=== PATIENT | female | born 1990 | race Caucasian/White ===

== ENCOUNTER 2017-01-05 08:56 | Emergency (ER) | payer BC ==
[2017-01-05] MEDS ORDERED: Morphine 4 MG/ML Syringe IVPUSH PRN (09:26)
[2017-01-05] MEDS ORDERED: Sodium Chloride 0.9% 1,000 ML IV ONE (09:26)
[2017-01-05] MEDS ORDERED: Ketorolac 30 MG/ML SDV IVPUSH ONE (09:26)
[2017-01-05] MEDS ORDERED: Ondansetron 4 MG/2 ML SDV IVPUSH ONE (09:26)
--- NOTE | 2017-01-05 09:30 | EDM.PDOC ---
ED HPI GENERAL MEDICAL PROBLEM - General Chief Complaint: Abdominal Pain Stated Complaint: LOWER ABDOMINAL PAIN Time Seen by Provider: 01/05/17 09:04 Source of Information: Reports: Patient History Limitations: Reports: No Limitations - History of Present Illness INITIAL COMMENTS - FREE TEXT/NARRATIVE: The patient is a 26-year-old female with a chief complaint of pelvic pain. The patient states that she has a history of severe endometriosis and also ovarian cysts that have required surgery for rupture. She always has some lower abdominal pain, but it's been worse lately. Gradually worsening. Pain is located in the lower abdomen all across the lower abdomen. Pain is sharp, cramping, constant, worse with movement, better with rest. She's taken ibuprofen for the pain with no relief. States that she used to be on stronger pain medications but hasn't been on stronger meds since moving here from [place]. She is not established with a PCP.. Denies vaginal discharge or bleeding. She is nausea, no vomiting. No diarrhea or constipation. No dysuria or hematuria. She is currently not on hormonal control. , one partner, using condoms for protection. No history of pelvic infection previously. Lower Abdominal Pain Score (Numeric/FACES): 8 - Related Data Allergies Allergy/AdvReac Type Severity Reaction Status Date / Time amitriptyline [From Elavil] Allergy Rash Verified 01/05/17 09:08 levofloxacin [From Levaquin] Allergy Hives Verified 01/05/17 09:08 metaxalone [From Skelaxin] Allergy Cannot Verified 01/05/17 09:08 Remember metoclopramide [From Reglan] Allergy Paralysis Verified 01/05/17 09:08 Home Meds: Home Meds Cranberry Ext/C/L. 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 - Past Surgical History HEENT Surgical History: Reports: Tonsillectomy Female Surgical History: Reports: Other (See Below) Other Female Surgeries/Procedures: endometriosis, cysts removed and drained Social & Family History - Tobacco Use Smoking Status *Q: Never Smoker - Caffeine Use Caffeine Use: Reports: Coffee - Recreational Drug Use Recreational Drug Use: No ED ROS GENERAL - Review of Systems Review Of Systems: See Below Constitutional: Denies: Fever HEENT: Reports: No Symptoms Respiratory: Denies: Shortness of Breath Cardiovascular: Denies: Chest Pain Endocrine: Reports: No Symptoms GI/Abdominal: Reports: Abdominal Pain : Denies: Dysuria Musculoskeletal: Reports: No Symptoms Skin: Reports: No Symptoms Neurological: Reports: No Symptoms Psychiatric: Reports: No Symptoms ED EXAM, GI/ABD - Physical Exam Exam: See Below Exam Limited By: No Limitations General Appearance: Alert, WD/WN, No Apparent Distress Eyes: Bilateral: Normal Appearance Ears: Normal External Exam Nose: Normal Inspection Throat/Mouth: Normal Inspection, Normal Oropharynx, No Airway Compromise Head: Atraumatic, Normocephalic Neck: Normal Inspection Respiratory/Chest: No Respiratory Distress Cardiovascular: Normal Peripheral Pulses, Regular Rate, Rhythm GI/Abdominal Exam: Soft, Other (Diffuse lower abdominal tenderness, no rebound or guarding) (Female) Exam: Normal External Exam, Normal Speculum Exam, Normal Bimanual Exam. No: Cervical Discharge, Vaginal Bleeding, Vaginal Discharge, Vaginal Lesions, Vaginal Tears Back Exam: No: CVA Tenderness (L), CVA Tenderness (R) Extremities: Normal Inspection Neurological: Alert, Normal Cognition, No Motor/Sensory Deficits Psychiatric: Normal Affect, Normal Mood Skin Exam: Warm, Dry, Intact, Normal Color, No Rash Course - Vital Signs Last Recorded V/S: Last Vital Signs Temp 36.3 C 01/05/17 09:03 Pulse 85 01/05/17 15:27 Resp 16 01/05/17 15:27 BP 104/82 01/05/17 15:27 Pulse Ox 98 01/05/17 15:27 - Orders/Labs/Meds Labs: Laboratory Tests 01/05/17 01/05/17 01/05/17 Range/Units 09:06 09:06 09:50 WBC 7.70 (3.98-10.04) K/mm3 RBC 4.65 (3.98-5.22) M/mm3 Hgb 13.8 (11.2-15.7) gm/L Hct 40.6 (34.1-44.9) % MCV 87.3 (79.4-94.8) fl MCH 29.7 (25.6-32.2) pg MCHC 34.0 (32.2-35.5) g/dl RDW Std Deviation 41.2 (36.4-46.3) fL Plt Count 210 (182-369) K/mm3 MPV 10.8 (9.4-12.3) fl Neut % (Auto) 51.1 (34.0-71.1) % Lymph % (Auto) 39.6 (19.3-51.7) % Stanley % (Auto) 6.5 (4.7-12.5) % Eos % (Auto) 2.3 (0.7-5.8) Baso % (Auto) 0.4 (0.1-1.2) % Neut # (Auto) 3.93 (1.56-6.13) K/mm3 Lymph # (Auto) 3.05 (1.18-3.74) K/mm3 Stanley # (Auto) 0.50 H (0.24-0.36) K/mm3 Eos # (Auto) 0.18 (0.04-0.36) K/mm3 Baso # (Auto) 0.03 (0.01-0.08) K/mm3 Sodium 141 (136-145) mEq/L Potassium 4.1 (3.5-5.1) mEq/L Chloride 107 (98-107) mEq/L Carbon Dioxide 26 (21-32) mEq/L Anion Gap 12.1 (5-15) BUN 21 H (7-18) mg/dL Creatinine 0.7 (0.55-1.02) mg/dL Est Cr Clr Drug Dosing 101.63 mL/min Estimated GFR (MDRD) > 60 (>60) mL/min BUN/Creatinine Ratio 30.0 H (14-18) Glucose 89 (74-106) mg/dL Calcium 8.8 (8.5-10.1) mg/dL Total Bilirubin 0.3 (0.2-1.0) mg/dL AST 10 L (15-37) U/L ALT 13 L (14-59) U/L Alkaline Phosphatase 96 (46-116) U/L Total Protein 7.3 (6.4-8.2) g/dl Albumin 3.9 (3.4-5.0) g/dl Globulin 3.4 gm/dL Albumin/Globulin Ratio 1.2 (1-2) Lipase 161 (73-393) U/L Urine Color (Yellow) Urine Appearance (Clear) Urine pH (5.0-8.0) Ur Specific Umbarger (1.005-1.030) Urine Protein (Negative) Urine Glucose (UA) (Negative) Urine Ketones (Negative) Urine Occult Blood (Negative) Urine Nitrite (Negative) Urine Bilirubin (Negative) Urine Urobilinogen (0.2-1.0) Ur Leukocyte Esterase (Negative) Urine RBC (0-5) /hpf Urine WBC (0-5) /hpf Ur Epithelial Cells (0-5) /hpf Urine Bacteria (FEW) /hpf Urine Mucus (FEW) /hpf Urine HCG, Qual (NEGATIVE) C trachomatis DNA (PCR) Not detected N gonorrhoeae DNA (PCR) Not detected 01/05/17 01/05/17 Range/Units 10:00 10:00 WBC (3.98-10.04) K/mm3 RBC (3.98-5.22) M/mm3 Hgb (11.2-15.7) gm/L Hct (34.1-44.9) % MCV (79.4-94.8) fl MCH (25.6-32.2) pg MCHC (32.2-35.5) g/dl RDW Std Deviation (36.4-46.3) fL Plt Count (182-369) K/mm3 MPV (9.4-12.3) fl Neut % (Auto) (34.0-71.1) % Lymph % (Auto) (19.3-51.7) % Stanley % (Auto) (4.7-12.5) % Eos % (Auto) (0.7-5.8) Baso % (Auto) (0.1-1.2) % Neut # (Auto) (1.56-6.13) K/mm3 Lymph # (Auto) (1.18-3.74) K/mm3 Stanley # (Auto) (0.24-0.36) K/mm3 Eos # (Auto) (0.04-0.36) K/mm3 Baso # (Auto) (0.01-0.08) K/mm3 Sodium (136-145) mEq/L Potassium (3.5-5.1) mEq/L Chloride (98-107) mEq/L Carbon Dioxide (21-32) mEq/L Anion Gap (5-15) BUN (7-18) mg/dL Creatinine (0.55-1.02) mg/dL Est Cr Clr Drug Dosing mL/min Estimated GFR (MDRD) (>60) mL/min BUN/Creatinine Ratio (14-18) Glucose (74-106) mg/dL Calcium (8.5-10.1) mg/dL Total Bilirubin (0.2-1.0) mg/dL AST (15-37) U/L ALT (14-59) U/L Alkaline Phosphatase (46-116) U/L Total Protein (6.4-8.2) g/dl Albumin (3.4-5.0) g/dl Globulin gm/dL Albumin/Globulin Ratio (1-2) Lipase (73-393) U/L Urine Color Light yellow (Yellow) Urine Appearance Clear (Clear) Urine pH 6.5 (5.0-8.0) Ur Specific Umbarger 1.015 (1.005-1.030) Urine Protein Negative (Negative) Urine Glucose (UA) Negative (Negative) Urine Ketones Negative (Negative) Urine Occult Blood Negative (Negative) Urine Nitrite Negative (Negative) Urine Bilirubin Negative (Negative) Urine Urobilinogen 0.2 (0.2-1.0) Ur Leukocyte Esterase Negative (Negative) Urine RBC Not seen (0-5) /hpf Urine WBC 0-5 (0-5) /hpf Ur Epithelial Cells 0-5 (0-5) /hpf Urine Bacteria Few (FEW) /hpf Urine Mucus Few (FEW) /hpf Urine HCG, Qual Negative (NEGATIVE) C trachomatis DNA (PCR) N gonorrhoeae DNA (PCR) Meds: Medications Discontinued Medications Generic Name Dose Route Start Last Admin Trade Name Freq PRN Reason Stop Dose Admin Sodium Chloride 1,000 mls @ 1,000 mls/hr 01/05/17 09:26 01/05/17 09:32 Normal Saline IV 01/05/17 10:25 1,000 mls/hr ONETIME ONE Administration Ketorolac Tromethamine 30 mg 01/05/17 09:26 01/05/17 09:35 Toradol IVPUSH 01/05/17 09:27 30 mg ONETIME ONE Administration Morphine Sulfate 4 mg 01/05/17 09:26 Morphine IVPUSH Q2H PRN Pain Morphine Sulfate 4 mg 01/05/17 09:37 01/05/17 09:38 Morphine IVPUSH 01/05/17 09:38 4 mg ONETIME STA Administration Morphine Sulfate 2 mg 01/05/17 11:13 01/05/17 11:17 Morphine IVPUSH 01/05/17 11:14 2 mg ONETIME ONE Administration Morphine Sulfate 4 mg 01/05/17 13:18 01/05/17 13:22 Morphine IVPUSH 01/05/17 13:19 4 mg ONETIME STA Administration Ondansetron HCl 4 mg 01/05/17 09:26 01/05/17 09:33 Zofran IVPUSH 01/05/17 09:27 4 mg ONETIME ONE Administration Ondansetron HCl 4 mg 01/05/17 15:16 01/05/17 15:19 Zofran IVPUSH 01/05/17 15:17 4 mg ONETIME STA Administration Oxycodone HCl 5 mg 01/05/17 10:00 01/05/17 10:13 Oxycodone PO 01/05/17 10:01 5 mg ONETIME ONE Administration Oxycodone HCl 5 mg 01/05/17 15:10 01/05/17 15:20 Oxycodone PO 01/05/17 15:11 5 mg ONETIME STA Administration - Re-Assessments/Exams Free Text/Narrative Re-Assessment/Exam: 01/05/17 16:48 U/S shows L ovarian mass and some fluid in the pelvis. Departure - Departure Time of Disposition: 14:45 Disposition: Home, Self-Care 01 Clinical Impression: Pelvic pain - Discharge Information Instructions: Pelvic Pain, Female, [id number] Referrals: PCP,None [Primary Care Provider] - Forms: ED Department Discharge Additional Instructions: 1. Follow up with Dr. Welsh as planned 2. Return to the ED if you have worsening pain or any other concerning symptoms
[2017-01-05] MEDS ORDERED: Morphine 4 MG/ML Syringe IVPUSH STA ×2 (09:37→13:18)
[2017-01-05] MEDS ORDERED: oxyCODONE 5 MG Tab PO ONE (10:00)
[2017-01-05] MEDS ORDERED: Morphine 2 MG/ML Syringe IVPUSH ONE (11:13)
[2017-01-05 11:47] LABS: C. TRACHOMATIS BY PCR NOT DETECTED; N. GONORRHOEAE BY PCR NOT DETECTED
--- NOTE | 2017-01-05 11:55 | US ---
Pelvic ultrasound: Multiple real-time images were obtained transvaginally. Comparison: No previous study. Anteverted uterus is seen. Endometrial thickness is 1.3 cm. There is moderate free fluid being seen within the pelvis which appears somewhat echogenic and could possibly represent some blood. Right ovary appears within normal limits. Solid appearing mass is identified within the left adnexa measuring 4.8 cm. This solid mass appears separate from the left ovary. Left ovary shows a 2.0 cm simple cyst. Measurements: Uterus: Length 7.1 cm, AP height 4.2 cm, transverse width 4.6 cm Right ovary: 2.3 x 1.5 x 1.1 cm Left ovary: 5.1 x 4.2 x 5.0 cm Impression: 1. Fluid within the pelvis appearing slightly echogenic possibly due to blood. 2. Solid appearing abnormality within the left adnexa. This measures about 4.8 cm in greatest size. This finding appears separate from the left ovary with left ovary showing a cyst measuring about 2.0 cm. This solid abnormality is nonspecific regarding etiology. Please exclude a positive test for this to represent an ectopic . 3. No additional abnormality is seen. Diagnostic code #3
--- NOTE | 2017-01-05 14:53 | PCM.CONS ---
H&P History of Present Illness - General Date of Service: 01/05/17 Admit Problem/Dx: 1. Pelvic pain 2. Left adnexal Mass. 3. History of endometriosis Source of Information: Patient History Limitations: Reports: No Limitations - History of Present Illness Initial Comments - Free Text/Narative: Karla is a 26-year-old nulligravida white female was seen in the emergency department today for complaints of bilateral lower pelvic pain. She has a chronic history of pelvic pain which she relates to endometriosis. She has been diagnosed as having stage IV endometriosis with significant involvement of the pelvis but with extension to the bowel. She's had 3 laparoscopies for evaluation and treatment of this. She at this time has had a low-grade pelvic pain consistently but for the last 2 weeks or so the pain is increased. Today she reports she had a moderate increase in the discomfort. This is what brought her into the emergency room. She's been treated recently with Femara 2.5 mg and norethindrone 0.35 mg daily to suppress the endometriosis. She however has recently moved here to [place] from [place] and did not have refills on this therefore has not taken it over the last 1-2 months. She feels this may be related to an this exacerbation. An ultrasound performed today in the ED shows the following per radiologist's report: anteverted uterus which is normal in size measuring 7.1 x 4.2 x 4.6 cm. The endometrial thickness is 1.3 cm. There is moderate free fluid seen within the pelvis which appears somewhat echogenic and possibly could represent blood. Right ovary appears to be within normal limits. Solid-appearing mass is noted within the left adnexa measuring 4.8 cm. Solid mass appears separate from the left ovary. Left ovary shows a 2.0 cm simple cyst. Measurements: Uterus: Length 7.17 minutes, AP height 4.2 cm's, transverse width 4.6 cm Right ovary: 2.3 x 1.5 x 1.1 cm Left ovary: 5.1 x 4.2 x 5.0 cm My evaluation of the ultrasound images shows findings that are less clear than those described above. Cannot entirely delineate whether the mass is separate from the left ovary. Past medical history: 1. Endometriosisstage IV with involvement of the bowel 2. Fibromyalgiaon medications Past surgical history: 1. Laparoscopy with diagnosis and cautery ablation of endometriosis -July 2015patient treated with Depo-Lupron 6 months following this surgery 2. Laparoscopy with treatment of endometriosis -January 2016 3. Laparoscopy with cautery ablation of endometriosisApril 2016 4. appendectomy age 23 5. Laparoscopy for removal of ruptured right ovarian cyst 2009 6. Tonsillectomy age 11. Allergies: amitriptyline, levofloxacin, metaxalone, metoclopramide Medications: 1. Wellbutrin. 2. Valtrex 3. Ambien 4. Zofran Family history: mother is alive with history of fibromyalgia, seizures, ovarian cysts, thyroid dysfunction. Father is alive with hypertension on meds 2 brothers 1 sister alive and well. No other endometriosis noted in the family. Maternal grandmother secondary to depression and kidney problems Maternal grandfather alive but with heart disease. Paternal grandmother is alive and well. Paternal grandfather secondary to heart disease. Patient denies any bleeding abnormalities, blood clotting abnormalities, anesthesia problems or endometriosis in the family. Social history: Patient is . She is a stay at home . is Florin. He works in the [employer] area. She denies any significant loss of alcohol, drugs or tobacco. Physical exam: In general the patient is a well-developed, well-nourished pleasant female stated age in no acute distress. She is alert and oriented 3 and appears to be good historian. She has shared records with her concerning her past hospitalizations, specifically pictures from her laparoscopies. These show a stage IV endometriosis but without any significant endometriomas. Skin is warm and dry without lesions. HEENT, neck and back within normal limits. Lungs are clear with good breath sounds in all lung rollins. Cardiovascular exam shows regular rate and rhythm without murmurs. Breast exam deferred. Abdomen is flat, soft, minimally tender with deep palpation in bilateral lower quadrants. Bowel sounds are noted. Scars present from previous laparoscopies. Genital exam per bimanual shows normal external genitalia, BUS, pubic hair pattern there is normal support, secretions estrogenization vagina. The cervix is freely mobile. The uterus is small and freely mobile. There is tenderness with anterior displacement of the uterus but this is minimal. No masses or organomegaly are easily palpated. Extremities neurological exam are grossly within normal limits. Lower Abdominal Pain Score (Numeric/FACES): 8 - Related Data Allergies/Adverse Reactions: Allergies Allergy/AdvReac Type Severity Reaction Status Date / Time amitriptyline [From Elavil] Allergy Rash Verified 01/05/17 09:08 levofloxacin [From Levaquin] Allergy Hives Verified 01/05/17 09:08 metaxalone [From Skelaxin] Allergy Cannot Verified 01/05/17 09:08 Remember metoclopramide [From Reglan] Allergy Paralysis Verified 01/05/17 09:08 Home Medications: Home Meds Cranberry Ext/C/L. 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 - Past Surgical History HEENT Surgical History: Reports: Tonsillectomy Female Surgical History: Reports: Other (See Below) Other Female Surgeries/Procedures: endometriosis, cysts removed and drained Social & Family History - Tobacco Use Smoking Status *Q: Never Smoker - Caffeine Use Caffeine Use: Reports: Coffee - Recreational Drug Use Recreational Drug Use: No H&P Review of Systems - Review of Systems: Review Of Systems: See Below Exam - Exam Exam: See Below - Vital Signs Vital Signs: Last Vital Signs Temp 36.3 C 01/05/17 09:03 Pulse 98 01/05/17 09:03 Resp 16 01/05/17 09:03 BP 117/81 01/05/17 09:03 Pulse Ox 99 01/05/17 09:03 Weight: 61.235 kg - Patient Data Lab Results Last 24 hrs: Laboratory Results - last 24 hr 01/05/17 01/05/17 01/05/17 Range/Units 09:06 09:06 09:50 WBC 7.70 (3.98-10.04) K/mm3 RBC 4.65 (3.98-5.22) M/mm3 Hgb 13.8 (11.2-15.7) gm/L Hct 40.6 (34.1-44.9) % MCV 87.3 (79.4-94.8) fl MCH 29.7 (25.6-32.2) pg MCHC 34.0 (32.2-35.5) g/dl RDW Std Deviation 41.2 (36.4-46.3) fL Plt Count 210 (182-369) K/mm3 MPV 10.8 (9.4-12.3) fl Neut % (Auto) 51.1 (34.0-71.1) % Lymph % (Auto) 39.6 (19.3-51.7) % Stevens % (Auto) 6.5 (4.7-12.5) % Eos % (Auto) 2.3 (0.7-5.8) Baso % (Auto) 0.4 (0.1-1.2) % Neut # (Auto) 3.93 (1.56-6.13) K/mm3 Lymph # (Auto) 3.05 (1.18-3.74) K/mm3 Stevens # (Auto) 0.50 H (0.24-0.36) K/mm3 Eos # (Auto) 0.18 (0.04-0.36) K/mm3 Baso # (Auto) 0.03 (0.01-0.08) K/mm3 Sodium 141 (136-145) mEq/L Potassium 4.1 (3.5-5.1) mEq/L Chloride 107 (98-107) mEq/L Carbon Dioxide 26 (21-32) mEq/L Anion Gap 12.1 (5-15) BUN 21 H (7-18) mg/dL Creatinine 0.7 (0.55-1.02) mg/dL Est Cr Clr Drug Dosing 101.63 mL/min Estimated GFR (MDRD) > 60 (>60) mL/min BUN/Creatinine Ratio 30.0 H (14-18) Glucose 89 (74-106) mg/dL Calcium 8.8 (8.5-10.1) mg/dL Total Bilirubin 0.3 (0.2-1.0) mg/dL AST 10 L (15-37) U/L ALT 13 L (14-59) U/L Alkaline Phosphatase 96 (46-116) U/L Total Protein 7.3 (6.4-8.2) g/dl Albumin 3.9 (3.4-5.0) g/dl Globulin 3.4 gm/dL Albumin/Globulin Ratio 1.2 (1-2) Lipase 161 (73-393) U/L Urine Color (Yellow) Urine Appearance (Clear) Urine pH (5.0-8.0) Ur Specific Ronks (1.005-1.030) Urine Protein (Negative) Urine Glucose (UA) (Negative) Urine Ketones (Negative) Urine Occult Blood (Negative) Urine Nitrite (Negative) Urine Bilirubin (Negative) Urine Urobilinogen (0.2-1.0) Ur Leukocyte Esterase (Negative) Urine RBC (0-5) /hpf Urine WBC (0-5) /hpf Ur Epithelial Cells (0-5) /hpf Urine Bacteria (FEW) /hpf Urine Mucus (FEW) /hpf Urine HCG, Qual (NEGATIVE) C trachomatis DNA (PCR) Not detected N gonorrhoeae DNA (PCR) Not detected 01/05/17 01/05/17 Range/Units 10:00 10:00 WBC (3.98-10.04) K/mm3 RBC (3.98-5.22) M/mm3 Hgb (11.2-15.7) gm/L Hct (34.1-44.9) % MCV (79.4-94.8) fl MCH (25.6-32.2) pg MCHC (32.2-35.5) g/dl RDW Std Deviation (36.4-46.3) fL Plt Count (182-369) K/mm3 MPV (9.4-12.3) fl Neut % (Auto) (34.0-71.1) % Lymph % (Auto) (19.3-51.7) % Stevens % (Auto) (4.7-12.5) % Eos % (Auto) (0.7-5.8) Baso % (Auto) (0.1-1.2) % Neut # (Auto) (1.56-6.13) K/mm3 Lymph # (Auto) (1.18-3.74) K/mm3 Stevens # (Auto) (0.24-0.36) K/mm3 Eos # (Auto) (0.04-0.36) K/mm3 Baso # (Auto) (0.01-0.08) K/mm3 Sodium (136-145) mEq/L Potassium (3.5-5.1) mEq/L Chloride (98-107) mEq/L Carbon Dioxide (21-32) mEq/L Anion Gap (5-15) BUN (7-18) mg/dL Creatinine (0.55-1.02) mg/dL Est Cr Clr Drug Dosing mL/min Estimated GFR (MDRD) (>60) mL/min BUN/Creatinine Ratio (14-18) Glucose (74-106) mg/dL Calcium (8.5-10.1) mg/dL Total Bilirubin (0.2-1.0) mg/dL AST (15-37) U/L ALT (14-59) U/L Alkaline Phosphatase (46-116) U/L Total Protein (6.4-8.2) g/dl Albumin (3.4-5.0) g/dl Globulin gm/dL Albumin/Globulin Ratio (1-2) Lipase (73-393) U/L Urine Color Light yellow (Yellow) Urine Appearance Clear (Clear) Urine pH 6.5 (5.0-8.0) Ur Specific Ronks 1.015 (1.005-1.030) Urine Protein Negative (Negative) Urine Glucose (UA) Negative (Negative) Urine Ketones Negative (Negative) Urine Occult Blood Negative (Negative) Urine Nitrite Negative (Negative) Urine Bilirubin Negative (Negative) Urine Urobilinogen 0.2 (0.2-1.0) Ur Leukocyte Esterase Negative (Negative) Urine RBC Not seen (0-5) /hpf Urine WBC 0-5 (0-5) /hpf Ur Epithelial Cells 0-5 (0-5) /hpf Urine Bacteria Few (FEW) /hpf Urine Mucus Few (FEW) /hpf Urine HCG, Qual Negative (NEGATIVE) C trachomatis DNA (PCR) N gonorrhoeae DNA (PCR) Result Diagrams: 01/05/17 09:06 01/05/17 09:06 Jaquan Results Last 24 hrs: Microbiology 01/05/17 09:50 Wet Prep - Final Vagina Consult PN Assessment/Plan Problem List Initiated/Reviewed/Updated: Yes Plan: Assessment: 1. Chronic pelvic pain with a moderate acute exacerbation over the last 24 hours. Differential diagnosis includes endometriosis but with possible ovarian cyst rupture resulting in acute pain and the fluid in the posterior cul-de-sac. 2. Patient status post laparoscopy 3 and is treated for endometriosis with aggressive medical therapy. 3. Patient desires procreation and has an appointment on 01/18/[address] [facility] for discussion of IVF. 4. Patient has had some relief from medical therapy consisting of Femara and norethindrone continuously and is amenable to possibly going back on this for relief 5. Patient has had good relief from Lortab's in the past. Plan: 1. We'll restart Femara at 2.5 mg by mouth daily along with norethindrone 0.35 mg in the form of Ortho Tri-Cyclen Lo Micronor control pills. 30 day supply of each, refill 2 2. Lortab 5 mg/325 one to 2 by mouth every 6 hours when necessary for pain. Quantity 30. No refills. 3. Patient has to use a nonsteroidal anti-inflammatory agent for baseline pain. 4. Return to clinic in 10-14 days for follow-up. 5. May consider doing a repeat ultrasound in 4-6 weeks to follow-up on ovarian cyst and left adnexal mass. 6. Patient to call if symptoms worsen. She is given our numbers.
[2017-01-05] MEDS ORDERED: oxyCODONE 5 MG Tab PO STA (15:10)
[2017-01-05] MEDS ORDERED: Ondansetron 4 MG/2 ML SDV IVPUSH STA (15:16)
[2017-01-05 15:29] VITALS: BP 104/82
== END 2017-01-05 15:20 | disposition home or self-care (01) ==
LOC: JD.ED 08:56
DX: R10.2 Pelvic and perineal pain (principal); Z88.8 Allergy status to other drugs, medicaments and biological substances; Z88.1 Allergy status to other antibiotic agents; Z79.899 Other long term (current) drug therapy; Z87.440 Personal history of urinary (tract) infections
CPT/HCPCS: 36415; 76830; 80053; 81001; 81025; 83690; 85025; 87210; 87491; 87591; 87808; 96361; 96374; 96375; 96376; 99285; A9270; J1885; J2270; J2405; J7040; 99283

== ENCOUNTER 2017-01-11 19:36 | Observation (INO) | payer BC ==
[2017-01-11] MEDS ORDERED: Sodium Chloride 0.9% 10 ML Syringe FLUSH PRN (20:31)
[2017-01-11] MEDS ORDERED: Sodium Chloride 0.9% 1,000 ML IV ONE (20:32)
[2017-01-11] MEDS ORDERED: Ondansetron 4 MG/2 ML SDV IVPUSH ONE ×2 (20:32→21:52)
--- NOTE | 2017-01-11 20:51 | EDM.PDOC ---
<Charlie Flowers - Last Filed: 01/12/17 02:30> ED HPI GENERAL MEDICAL PROBLEM - General Chief Complaint: Abdominal Pain Stated Complaint: LOWER ABDOMINAL PAIN/VOMITING/NAUSEA Time Seen by Provider: 01/11/17 20:27 - Related Data Allergies Allergy/AdvReac Type Severity Reaction Status Date / Time amitriptyline [From Elavil] Allergy Rash Verified 01/11/17 22:02 levofloxacin [From Levaquin] Allergy Hives Verified 01/11/17 22:02 metaxalone [From Skelaxin] Allergy Cannot Verified 01/11/17 22:02 Remember metoclopramide [From Reglan] AdvReac Paralysis Verified 01/12/17 07:08 Home Meds: Home Meds Cranberry Ext/C/L. Sporogenes [Azo Cranberry] 1 tab PO DAILY 01/05/17 [History] Ondansetron [Zofran ODT] 1 tab PO ASDIRECTED PRN 01/05/17 [History] buPROPion [Wellbutrin SR] 150 mg PO DAILY 01/05/17 [History] valACYclovir [Valtrex] 1,000 mg PO DAILY 01/05/17 [History] Letrozole [Femara] 2.5 mg PO DAILY 01/12/17 [History] Course - Vital Signs Last Recorded V/S: Last Vital Signs Temp 36.6 C 01/12/17 10:57 Pulse 110 H 01/12/17 10:57 Resp 12 01/12/17 10:57 BP 114/63 01/12/17 10:57 Pulse Ox 99 01/12/17 10:57 Orthostatic Blood Pressure [ 109/64 Standing] Orthostatic Blood Pressure [ 108/77 Sitting] Orthostatic Blood Pressure [ 104/76 Supine] - Orders/Labs/Meds Orders: Active Orders 24 hr Category Date Time Status Transvaginal Non OB [US] Stat Exams 01/11/17 21:53 Taken Medication Orders Docusate Sodium (Colace) 100 mg PO BID PRN PRN Reason: Constipation Hydromorphone HCl (Dilaudid) 0.5 mg IVPUSH Q2H PRN PRN Reason: Pain (severe 7-10) Lactated Ringer's (Ringers, Lactated) 1,000 mls @ 125 mls/hr IV ASDIRECTED NGUYEN Last Admin: 01/12/17 12:43 Dose: 125 mls/hr Infusion: 01/12/17 12:43 Dose: 125 mls/hr Admin: 01/12/17 05:02 Dose: 125 mls/hr Ibuprofen (Motrin) 600 mg PO Q6H PRN PRN Reason: Pain (moderate 4-6) Magnesium Hydroxide (Milk Of Magnesia) 30 ml PO Q12H PRN PRN Reason: Constipation Medroxyprogesterone Acetate (Provera) 10 mg PO DAILY [facility] Last Admin: 01/12/17 10:58 Dose: 10 mg Ondansetron HCl (Zofran) 4 mg IV Q4H PRN PRN Reason: Nausea/Vomiting Last Admin: 01/12/17 14:08 Dose: 4 mg Admin: 01/12/17 09:58 Dose: 4 mg Oxycodone/Acetaminophen (Percocet 325-5 Mg) 2 tab PO Q4H PRN PRN Reason: Pain (moderate 4-6) Last Admin: 01/12/17 14:07 Dose: 2 tab Admin: 01/12/17 09:55 Dose: 2 tab Bupropion 150 Mg Sr 0 each PO DAILY [facility] Last Admin: 01/12/17 10:27 Dose: Letrozole 2.5 Mg 0 each PO DAILY [facility] Last Admin: 01/12/17 10:27 Dose: Sodium Chloride (Saline Flush) 10 ml FLUSH ASDIRECTED PRN PRN Reason: Keep Vein Open Valacyclovir HCl (Valtrex) 1,000 mg PO DAILY [facility] Last Admin: 01/12/17 09:57 Dose: 1,000 mg Labs: Laboratory Tests 01/11/17 01/11/17 01/11/17 Range/Units 20:32 20:32 20:32 WBC 21.70 H (3.98-10.04) K/mm3 RBC 4.98 (3.98-5.22) M/mm3 Hgb 14.5 (11.2-15.7) gm/L Hct 42.9 (34.1-44.9) % MCV 86.1 (79.4-94.8) fl MCH 29.1 (25.6-32.2) pg MCHC 33.8 (32.2-35.5) g/dl RDW Std Deviation 41.2 (36.4-46.3) fL Plt Count 289 (182-369) K/mm3 MPV 10.8 (9.4-12.3) fl Neutrophils % (Manual) 82 H (40-60) % Band Neutrophils % 0 (0-10) % Lymphocytes % (Manual) 10 L (20-40) % Atypical Lymphs % 0 % Monocytes % (Manual) 6 (2-10) % Eosinophils % (Manual) 2 (0.7-5.8) % Basophils % (Manual) 0 L (0.1-1.2) Platelet Estimate Adequate Plt Morphology Comment Normal RBC Morph Comment Normal Sodium 140 (136-145) mEq/L Potassium 4.4 (3.5-5.1) mEq/L Chloride 106 (98-107) mEq/L Carbon Dioxide 22 (21-32) mEq/L Anion Gap 16.4 H (5-15) BUN 21 H (7-18) mg/dL Creatinine 0.6 (0.55-1.02) mg/dL Est Cr Clr Drug Dosing 102.95 mL/min Estimated GFR (MDRD) > 60 (>60) mL/min BUN/Creatinine Ratio 35.0 H (14-18) Glucose 112 H (74-106) mg/dL Calcium 9.3 (8.5-10.1) mg/dL Total Bilirubin 0.5 (0.2-1.0) mg/dL AST 19 (15-37) U/L ALT 31 (14-59) U/L Alkaline Phosphatase 93 (46-116) U/L C-Reactive Protein 0.4 (<1.0) mg/dL Total Protein 7.8 (6.4-8.2) g/dl Albumin 4.3 (3.4-5.0) g/dl Globulin 3.5 gm/dL Albumin/Globulin Ratio 1.2 (1-2) Lipase 115 (73-393) U/L HCG, Qual Negative (NEGATIVE) Urine Color (Yellow) Urine Appearance (Clear) Urine pH (5.0-8.0) Ur Specific [place] (1.005-1.030) Urine Protein (Negative) Urine Glucose (UA) (Negative) Urine Ketones (Negative) Urine Occult Blood (Negative) Urine Nitrite (Negative) Urine Bilirubin (Negative) Urine Urobilinogen (0.2-1.0) Ur Leukocyte Esterase (Negative) Urine RBC (0-5) /hpf Urine WBC (0-5) /hpf Ur Epithelial Cells (0-5) /hpf Urine Bacteria (FEW) /hpf Urine Mucus (FEW) /hpf 01/11/17 Range/Units 21:29 WBC (3.98-10.04) K/mm3 RBC (3.98-5.22) M/mm3 Hgb (11.2-15.7) gm/L Hct (34.1-44.9) % MCV (79.4-94.8) fl MCH (25.6-32.2) pg MCHC (32.2-35.5) g/dl RDW Std Deviation (36.4-46.3) fL Plt Count (182-369) K/mm3 MPV (9.4-12.3) fl Neutrophils % (Manual) (40-60) % Band Neutrophils % (0-10) % Lymphocytes % (Manual) (20-40) % Atypical Lymphs % % Monocytes % (Manual) (2-10) % Eosinophils % (Manual) (0.7-5.8) % Basophils % (Manual) (0.1-1.2) Platelet Estimate Plt Morphology Comment RBC Morph Comment Sodium (136-145) mEq/L Potassium (3.5-5.1) mEq/L Chloride (98-107) mEq/L Carbon Dioxide (21-32) mEq/L Anion Gap (5-15) BUN (7-18) mg/dL Creatinine (0.55-1.02) mg/dL Est Cr Clr Drug Dosing mL/min Estimated GFR (MDRD) (>60) mL/min BUN/Creatinine Ratio (14-18) Glucose (74-106) mg/dL Calcium (8.5-10.1) mg/dL Total Bilirubin (0.2-1.0) mg/dL AST (15-37) U/L ALT (14-59) U/L Alkaline Phosphatase (46-116) U/L C-Reactive Protein (<1.0) mg/dL Total Protein (6.4-8.2) g/dl Albumin (3.4-5.0) g/dl Globulin gm/dL Albumin/Globulin Ratio (1-2) Lipase (73-393) U/L HCG, Qual (NEGATIVE) Urine Color Yellow (Yellow) Urine Appearance Clear (Clear) Urine pH 6.0 (5.0-8.0) Ur Specific [place] > or = 1.030 (1.005-1.030) Urine Protein Trace H (Negative) Urine Glucose (UA) Negative (Negative) Urine Ketones 1+ H (Negative) Urine Occult Blood Negative (Negative) Urine Nitrite Negative (Negative) Urine Bilirubin Negative (Negative) Urine Urobilinogen 0.2 (0.2-1.0) Ur Leukocyte Esterase Negative (Negative) Urine RBC 0-5 (0-5) /hpf Urine WBC 0-5 (0-5) /hpf Ur Epithelial Cells 0-5 (0-5) /hpf Urine Bacteria Few (FEW) /hpf Urine Mucus Many H (FEW) /hpf Meds: Medications Generic Name Dose Route Start Last Admin Trade Name Freq PRN Reason Stop Dose Admin Docusate Sodium 100 mg 01/12/17 04:10 Colace PO BID PRN Constipation Hydromorphone HCl 0.5 mg 01/12/17 07:09 Dilaudid IVPUSH Q2H PRN Pain (severe 7-10) Lactated Ringer's 1,000 mls @ 125 mls/hr 01/12/17 04:10 01/12/17 12:43 Ringers, Lactated IV 125 mls/hr ASDIRECTED NGUYEN Administration Ibuprofen 600 mg 01/12/17 04:10 Motrin PO Q6H PRN Pain (moderate 4-6) Magnesium Hydroxide 30 ml 01/12/17 04:10 Milk Of Magnesia PO Q12H PRN Constipation Medroxyprogesterone Acetate 10 mg 01/12/17 10:45 01/12/17 10:58 Provera PO 10 mg DAILY NGUYEN Administration Ondansetron HCl 4 mg 01/12/17 04:10 01/12/17 14:08 Zofran IV 4 mg Q4H PRN Administration Nausea/Vomiting Oxycodone/Acetaminophen 2 tab 01/12/17 04:10 01/12/17 14:07 Percocet 325-5 Mg PO 2 tab Q4H PRN Administration Pain (moderate 4-6) Bupropion 150 Mg Sr 0 each 01/12/17 09:00 01/12/17 10:27 PO Not Given DAILY NGUYEN Letrozole 2.5 Mg 0 each 01/12/17 07:11 01/12/17 10:27 PO Not Given DAILY NGUYEN Sodium Chloride 10 ml 01/12/17 04:10 Saline Flush FLUSH ASDIRECTED PRN Keep Vein Open Valacyclovir HCl 1,000 mg 01/12/17 09:00 01/12/17 09:57 Valtrex PO 1,000 mg DAILY NGUYEN Administration Discontinued Medications Generic Name Dose Route Start Last Admin Trade Name Freq PRN Reason Stop Dose Admin Hydromorphone HCl 0.5 mg 01/11/17 21:35 01/11/17 22:01 Dilaudid IVPUSH 01/11/17 21:36 0.5 mg ONETIME ONE Administration Hydromorphone HCl 0.5 mg 01/12/17 04:10 Dilaudid IVPUSH Q2H PRN Pain (severe 7-10) Sodium Chloride 1,000 mls @ 999 mls/hr 01/11/17 20:32 01/11/17 20:51 Normal Saline IV 01/11/17 21:32 999 mls/hr ONETIME ONE Administration Sodium Chloride 1,000 mls @ 150 mls/hr 01/11/17 22:15 01/11/17 22:16 Normal Saline IV 150 mls/hr ASDIRECTED NGUYEN Administration Iopamidol 125 ml 01/12/17 00:54 01/12/17 01:23 Isovue-300 (61%) IVPUSH 01/12/17 00:55 125 ml ONETIME ONE Administration Metoclopramide HCl 10 mg 01/11/17 23:43 01/12/17 00:00 Reglan IVPUSH 01/11/17 23:44 Not Given ONETIME ONE Morphine Sulfate 4 mg 01/11/17 23:51 01/12/17 04:02 Morphine IVPUSH 4 mg Q2H PRN Administration Pain Non-Formulary Medication 2.5 mg 01/12/17 04:10 01/12/17 04:51 Letrozole PO Not Given DAILY NGUYEN Ondansetron HCl 4 mg 01/11/17 20:32 01/11/17 20:51 Zofran IVPUSH 01/11/17 20:33 4 mg ONETIME ONE Administration Ondansetron HCl 4 mg 01/11/17 21:52 01/11/17 22:01 Zofran IVPUSH 01/11/17 21:53 4 mg ONETIME ONE Administration Ondansetron HCl 4 mg 01/12/17 03:50 01/12/17 03:56 Zofran IVPUSH 4 mg Q4H PRN Administration Nausea/Vomiting Ondansetron HCl Confirm 01/12/17 03:51 01/12/17 04:10 Zofran Administered 01/12/17 03:52 Not Given Dose 4 mg .ROUTE .STK-MED ONE Promethazine HCl 25 mg 01/11/17 23:50 01/12/17 00:03 Phenergan PO 01/11/17 23:51 25 mg ONETIME ONE Administration Sodium Chloride 10 ml 01/11/17 20:31 01/11/17 20:51 Saline Flush FLUSH 10 ml ASDIRECTED PRN Administration Keep Vein Open - Re-Assessments/Exams Free Text/Narrative Re-Assessment/Exam: 01/12/17 01:40 Assumed care from Mary. Agree with documentation as above. U/S again shows an ovarian mass, possible endometrioma vs. dermoid. This was present on ultrasound last week. Given new symptoms of vomiting and elevated WBC and ongoing poorly controlled pain, will order CT a/p. 01/12/17 02:13 CT scan shows multiple complex cyst in the left pelvis largest measuring 5.2 4.4 cm consistent with endometriosis. Small amount of pelvic ascites. No abscess identified. 01/12/17 02:23 Patient is feeling much better but still has some pain and nausea. I offered admission for observation and symptom control versus discharge. She doesn't feel comfortable going home. She was severely uncomfortable when she arrived, tachycardic, dehydrated, and required multiple rounds of medications and fluids to get her symptoms to where they are now. I think admission for symptom control overnight is reasonable. 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 01/12/17 02:[address] Patel who will admit the patient. Departure - Departure Time of Disposition: 02:31 Disposition: Refer to Observation Clinical Impression: Endometriosis Vomiting Qualifiers: Vomiting type: unspecified Vomiting Intractability: non-intractable Nausea presence: with nausea Qualified Code(s): R11.2 - Nausea with vomiting, unspecified - Discharge Information - My Orders Last 24 Hours: My Active Orders 01/11/17 21:53 Transvaginal Non OB [US] Stat - Assessment/Plan Last 24 Hours: My Active Orders 01/11/17 21:53 Transvaginal Non OB [US] Stat <Mary Presaud - Last Filed: 01/12/17 15:01> ED HPI GENERAL MEDICAL PROBLEM - General Source of Information: Reports: Patient, Old Records (recent ER record) History Limitations: Reports: No Limitations - History of Present Illness INITIAL COMMENTS - FREE TEXT/NARRATIVE: 26-year-old female presents for evaluation and treatment of lower abdominal and pelvic pain. Patient was seen in the ER on January 05 for the same problem. She reports that the pain has not stopped since then. During her ER visit she was found to have an mass in the left adnexa. She also had free fluid in the pelvis likely blood. OB was consulted and saw the patient in the ER. She was restarted on from there and Ortho [facility]. She was given Lortabs. She is instructed to follow-up with him in clinic in the next 10-14 days. She's not yet followed up Dr. Welsh but is schedule to see him soon. Patient reports that tonight the pain has become much worse. Pain is located in the bilateral pelvis. She reports nausea, vomiting, lightheadedness and diaphoresis. She states that she is almost fainted on several occasions but has not yet had a syncopal episode. She also reports associated symptoms of decreased appetite. Patient also reported to nursing staff some dysuria. Last menstrual period was the first week of the month, about 2-1/2 weeks ago. Patient has a past medical history of endometriosis and ovarian cysts. patient has a past surgical history including appendectomy, multiple laparoscopies and tonsillectomy. Pelvic Pain Score (Numeric/FACES): 6 Past Medical History Genitourinary History: Reports: UTI, Recurrent Other Genitourinary History: previously admitted for ovarian cyst. MEDICAL PSYCHOTHERAPIST History: Reports: Endometriosis - Past Surgical History HEENT Surgical History: Reports: Tonsillectomy GI Surgical History: Reports: Appendectomy Other GI Surgeries/Procedures: entermetrosis surgeries. Female Surgical History: Reports: Other (See Below) Other Female Surgeries/Procedures: endometriosis, cysts removed and drained Social & Family History - Family History Family Medical History: Noncontributory - Tobacco Use Smoking Status *Q: Never Smoker - Caffeine Use Caffeine Use: Reports: Coffee, Tea - Alcohol Use Days Per Week of Alcohol Use: 1 Number of Drinks Per Day: 1 Total Drinks Per Week: 1 - Recreational Drug Use Recreational Drug Use: No ED ROS GENERAL - Review of Systems Review Of Systems: See Below Constitutional: Reports: Malaise, Diaphoresis, Decreased Appetite. Denies: Fever Cardiovascular: Reports: Lightheadedness GI/Abdominal: Reports: Nausea, Vomiting. Denies: Constipation, Diarrhea : Reports: Dysuria, Other (pelvic pain bilateral) Neurological: Denies: Syncope ED EXAM, RENAL/ - Physical Exam Exam: See Below Exam Limited By: No Limitations General Appearance: Alert, WD/WN, Mild Distress Throat/Mouth: Normal Inspection, Normal Voice, No Airway Compromise Neck: Normal Inspection Respiratory/Chest: No Respiratory Distress, Lungs Clear, Normal Breath Sounds Cardiovascular: Normal Peripheral Pulses, No Murmur, Tachycardia GI/Abdominal: Soft, Tender (mild generalized tenderness, greatest in the lower abdomen and suprapubic region) Neurological: Alert, Oriented, Normal Cognition Psychiatric: Normal Affect, Normal Mood Skin Exam: Warm, Dry, Normal Color Course - Orders/Labs/Meds Labs: Laboratory Tests 01/11/17 01/11/17 01/11/17 Range/Units 20:32 20:32 20:32 WBC 21.70 H (3.98-10.04) K/mm3 RBC 4.98 (3.98-5.22) M/mm3 Hgb 14.5 (11.2-15.7) gm/L Hct 42.9 (34.1-44.9) % MCV 86.1 (79.4-94.8) fl MCH 29.1 (25.6-32.2) pg MCHC 33.8 (32.2-35.5) g/dl RDW Std Deviation 41.2 (36.4-46.3) fL Plt Count 289 (182-369) K/mm3 MPV 10.8 (9.4-12.3) fl Neutrophils % (Manual) 82 H (40-60) % Band Neutrophils % 0 (0-10) % Lymphocytes % (Manual) 10 L (20-40) % Atypical Lymphs % 0 % Monocytes % (Manual) 6 (2-10) % Eosinophils % (Manual) 2 (0.7-5.8) % Basophils % (Manual) 0 L (0.1-1.2) Platelet Estimate Adequate Plt Morphology Comment Normal RBC Morph Comment Normal Sodium 140 (136-145) mEq/L Potassium 4.4 (3.5-5.1) mEq/L Chloride 106 (98-107) mEq/L Carbon Dioxide 22 (21-32) mEq/L Anion Gap 16.4 H (5-15) BUN 21 H (7-18) mg/dL Creatinine 0.6 (0.55-1.02) mg/dL Est Cr Clr Drug Dosing 102.95 mL/min Estimated GFR (MDRD) > 60 (>60) mL/min BUN/Creatinine Ratio 35.0 H (14-18) Glucose 112 H (74-106) mg/dL Calcium 9.3 (8.5-10.1) mg/dL Total Bilirubin 0.5 (0.2-1.0) mg/dL AST 19 (15-37) U/L ALT 31 (14-59) U/L Alkaline Phosphatase 93 (46-116) U/L C-Reactive Protein 0.4 (<1.0) mg/dL Total Protein 7.8 (6.4-8.2) g/dl Albumin 4.3 (3.4-5.0) g/dl Globulin 3.5 gm/dL Albumin/Globulin Ratio 1.2 (1-2) Lipase 115 (73-393) U/L HCG, Qual Negative (NEGATIVE) Urine Color (Yellow) Urine Appearance (Clear) Urine pH (5.0-8.0) Ur Specific [place] (1.005-1.030) Urine Protein (Negative) Urine Glucose (UA) (Negative) Urine Ketones (Negative) Urine Occult Blood (Negative) Urine Nitrite (Negative) Urine Bilirubin (Negative) Urine Urobilinogen (0.2-1.0) Ur Leukocyte Esterase (Negative) Urine RBC (0-5) /hpf Urine WBC (0-5) /hpf Ur Epithelial Cells (0-5) /hpf Urine Bacteria (FEW) /hpf Urine Mucus (FEW) /hpf 01/11/17 Range/Units 21:29 WBC (3.98-10.04) K/mm3 RBC (3.98-5.22) M/mm3 Hgb (11.2-15.7) gm/L Hct (34.1-44.9) % MCV (79.4-94.8) fl MCH (25.6-32.2) pg MCHC (32.2-35.5) g/dl RDW Std Deviation (36.4-46.3) fL Plt Count (182-369) K/mm3 MPV (9.4-12.3) fl Neutrophils % (Manual) (40-60) % Band Neutrophils % (0-10) % Lymphocytes % (Manual) (20-40) % Atypical Lymphs % % Monocytes % (Manual) (2-10) % Eosinophils % (Manual) (0.7-5.8) % Basophils % (Manual) (0.1-1.2) Platelet Estimate Plt Morphology Comment RBC Morph Comment Sodium (136-145) mEq/L Potassium (3.5-5.1) mEq/L Chloride (98-107) mEq/L Carbon Dioxide (21-32) mEq/L Anion Gap (5-15) BUN (7-18) mg/dL Creatinine (0.55-1.02) mg/dL Est Cr Clr Drug Dosing mL/min Estimated GFR (MDRD) (>60) mL/min BUN/Creatinine Ratio (14-18) Glucose (74-106) mg/dL Calcium (8.5-10.1) mg/dL Total Bilirubin (0.2-1.0) mg/dL AST (15-37) U/L ALT (14-59) U/L Alkaline Phosphatase (46-116) U/L C-Reactive Protein (<1.0) mg/dL Total Protein (6.4-8.2) g/dl Albumin (3.4-5.0) g/dl Globulin gm/dL Albumin/Globulin Ratio (1-2) Lipase (73-393) U/L HCG, Qual (NEGATIVE) Urine Color Yellow (Yellow) Urine Appearance Clear (Clear) Urine pH 6.0 (5.0-8.0) Ur Specific [place] > or = 1.030 (1.005-1.030) Urine Protein Trace H (Negative) Urine Glucose (UA) Negative (Negative) Urine Ketones 1+ H (Negative) Urine Occult Blood Negative (Negative) Urine Nitrite Negative (Negative) Urine Bilirubin Negative (Negative) Urine Urobilinogen 0.2 (0.2-1.0) Ur Leukocyte Esterase Negative (Negative) Urine RBC 0-5 (0-5) /hpf Urine WBC 0-5 (0-5) /hpf Ur Epithelial Cells 0-5 (0-5) /hpf Urine Bacteria Few (FEW) /hpf Urine Mucus Many H (FEW) /hpf - Re-Assessments/Exams Free Text/Narrative Re-Assessment/Exam: 01/11/17 22:00 labs return. Of concern her white blood cell count is still elevated at 21,000. Was 7.7 on . Case discussed with Dr. Mi Flowers. We will go ahead and get a repeat of a transvaginal ultrasound to rule out ovarian torsion. She very well may likely get a CT to further evaluate. I discussed this with the patient. She is now resting more comfortably. Nausea has improved. Will continue to monitor and give fluids. 01/12/17 15:00 Late entry At around 22:15 Last night (01/11/17) I updated Dr. Ksenia Flowers with the patient' s condition. She is familiar with the patient's case n that she saw her about a week ago. She will take over care.
[2017-01-11] MEDS ORDERED: HYDROmorphone 1 MG/ML Syringe IVPUSH ONE (21:35)
[2017-01-11] MEDS ORDERED: Sodium Chloride 0.9% 1,000 ML IV SCH (22:15)
[2017-01-11] MEDS ORDERED: Metoclopramide 10 MG/2 ML SDV IVPUSH ONE (23:43)
[2017-01-11] MEDS ORDERED: Promethazine 25 MG Tab PO ONE (23:50)
[2017-01-12] MEDS: Morphine 4 MG/ML Syringe IVPUSH PRN ×2 (00:03→04:02)
[2017-01-12] MEDS ORDERED: Iopamidol 612 MG/ML 150 ML Bottle IVPUSH ONE (00:54)
--- NOTE | 2017-01-12 03:47 | PCM.SN ---
- Free Text/Narrative Note: Admission H&P Chief complaint: abdominal pain with severe nausea and vomiting History of present illness: 26-year-old female who represents to the emergency department approximately one week since her last visit with significant abdominal pain. Patient has a known history of endometriosis but had stopped using her Femara and progesterone therapy about a month ago. On she was seen in the ED for similar complaints by Dr. Welsh with abdominal pain and was prescribed Femara and progesterone as well as narcotic pain medications. She reports that since that visit her pain has overall been controlled until yesterday, 01/11/17, when she started having increased amounts of abdominal pain. She reports that the pain would get up to a significant level that would lead to nausea with emesis and some lightheadedness as a result of the emesis. The pain has been overall constant with occasional episodes where the pain decreases to approximately a 5-6 out of 10. She had been using the Femara and progesterone daily as prescribed. She denies any fevers or chills. She denies any dysuria or urinary frequency/urgency. She reports that she does have pain with bowel movements and she was told that she had endometriosis lesions on her colon at her last surgery. She required multiple doses of narcotic pain medication in the emergency room and did not feel comfortable to go home to manage this there. 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 Reports that she has had endometriosis and was treated with Femara and progesterone therapy after first being diagnosed in July 2015 with a laparoscopic surgery. At her last surgery in July 2016 she was told that there were endometriosis lesions on her colon. Social history: Denies tobacco or drug use. Reports some occasional alcohol use. Family history: Denies family history of breast or ovarian cancer. Review of systems: As per history of present illness Physical exam: Temperature 37.0 Celsius, pulse 98, respiratory rate 16, blood pressure 124/69 Orthostatic Blood Pressure [ 109/64 Standing] Orthostatic Blood Pressure [ 108/77 Sitting] Orthostatic Blood Pressure [ 104/76 Supine] Gen.: Mild distress, alert and oriented Lungs: Clear to auscultation bilaterally Heart: Regular rate and rhythm Abdomen: soft, mild tenderness in bilateral lower quadrants, no guarding or rebound, nondistended Extremities: Moving all extremities without difficulty, no edema in lower extremities bilaterally CBC: WBC 21.7, hemoglobin 14.5, hematocrit 42.9, platelets 289 CMP: Sodium 140, potassium 4.4, CO2 22, BUS and 21, creatinine 0.6, AST 19, ALT 31, CRP 0.4, lipase 115 HCG: Negative Urinalysis: Unremarkable Transvaginal ultrasound (01/11/17) Findings Uterus: Unremarkable. Normal endometrial stripe thickness. No myometrial mass. Right ovary: Right ovary obscured by bowel gas. normal blood flow. Left ovary: Heterogeneous 2.8 x 4.2 x 5.1 cm left adnexal mass possibly with a solid component. Free fluid: Mild ascites Impression: Heterogeneous 2.8 x 4.2 x 5.1 cm left adnexal mass probably of the left ovary, possibly with a solid component CT abdomen and pelvis with contrast (01/12/17) Findings: Lower thorax: No acute findings Abdomen: Liver unremarkable, no mass. Gallbladder unremarkable, no stones, no ductal dilatation. Pancreas unremarkable, no mass, no ductal dilatation. Spleen unremarkable, no splenomegaly. Adrenals unremarkable, no mass. Kidneys and ureters unremarkable, no mass, no hydronephrosis. Stomach and bowel unremarkable, no obstruction, no mucosal thickening. Appendix no findings to suggest acute appendicitis. Pelvis: Bladder unremarkable, no mass. Reproductive with multiple complex cysts in the left side of the pelvis largest measures 5.2 x 4.4 cm consistent with patient's history of endometriosis. Fluid in the endometrial canal. Assessment/plan 26-year-old female with acute exacerbation of endometriosis pain with nausea, vomiting and near syncopal events 1. Refer to rubs for pain control and monitoring of nausea and vomiting 2. Ibuprofen, Percocet and Dilaudid IV as needed for pain 3. Zofran IV 4 mg every 4 hours as needed for nausea and vomiting 4. Continue on Femara for control of her endometriosis 5. Regular diet as tolerated 6. Activity as tolerated 7. Anticipate the patient will be stable for discharge by late afternoon on , will continue to monitor patient and follow her pain and nausea Lalit Patel M.D. 4:22 AM 01/12/2017
[2017-01-12] MEDS ORDERED: Ondansetron 4 MG/2 ML SDV IVPUSH PRN (03:50)
[2017-01-12] MEDS ORDERED: Ondansetron 4 MG/2 ML SDV ONE (03:51)
[2017-01-12] MEDS ORDERED: Docusate Sodium 100 MG Cap PO PRN (04:10)
[2017-01-12] MEDS ORDERED: Sodium Chloride 0.9% 10 ML Syringe FLUSH PRN (04:10)
[2017-01-12] MEDS ORDERED: Non-Formulary Medication 1 Each (Letrozole 2.5 MG) PO SCH (04:10)
[2017-01-12] MEDS ORDERED: HYDROmorphone 1 MG/ML Syringe IVPUSH PRN (04:10)
[2017-01-12] MEDS ORDERED: Magnesium Hydroxide 400 MG/5 ML Susp 30 ML Cup PO PRN (04:10)
[2017-01-12] MEDS ORDERED: Ibuprofen 600 MG Tab PO PRN (04:10)
[2017-01-12] MEDS: Lactated Ringers 1,000 ML IV SCH ×2 (05:02→12:43)
[2017-01-12] MEDS ORDERED: HYDROmorphone 0.5 MG/0.5 ML Syringe IVPUSH PRN (07:09)
--- NOTE | 2017-01-12 08:51 | CT ---
CT abdomen and pelvis Technique: Multiple axial sections were obtained from above the dome of the diaphragm inferiorly through the pubic symphysis. Intravenous contrast was utilized. No oral contrast has been utilized. Delayed images were obtained through the bladder. Findings: Visualized lung bases show nothing acute. Liver shows no focal parenchymal abnormality. Spleen appears within normal limits. Adrenal glands show no nodule. Kidneys show symmetric contrast enhancement without hydronephrosis or mass. Pancreas appears within normal limits. Gallbladder shows no calcified gallstones. Aorta shows no aneurysmal dilatation. No retroperitoneal adenopathy is seen. Mesenteric lymph nodes are seen believed to be incidental. Appendix is not definitely appreciated. Moderate amount of free fluid seen within the cul-de-sac. Cyst noted within the left adnexa measuring 4.3 cm as well as a collapsing cyst within the left adnexa measuring 2.5 cm. Free fluid is most likely secondary to the collapsing adnexal cyst. No inflammatory change is seen. No bowel dilatation is seen. Delayed images show contrast within the distal ureters and within the bladder. Bone window settings were reviewed which appear within normal limits for the patient's age. Impression: 1. Several cysts within the left adnexa one of which appears to be collapsing. Free fluid within the pelvis is seen which most likely represents fluid from a leaking cyst. 2. Other normal findings as noted above. Diagnostic code #3 I agree with preliminary report issued by [employer] ([facility] report finalized on 01/12/17, 2:54 AM Central Time)
[2017-01-12] MEDS ORDERED: BUPROPION 150 MG PO SCH (09:00)
[2017-01-12] MEDS ORDERED: valACYclovir 1,000 MG Tab PO SCH (09:00)
[2017-01-12] MEDS: Acetaminophen/oxyCODONE 325-5 MG Tab PO PRN ×3 (09:55→18:02)
[2017-01-12] MEDS: Ondansetron 4 MG/2 ML SDV IV PRN ×3 (09:58→18:09)
[2017-01-12 11:12] VITALS: BP 114/63
--- NOTE | 2017-01-12 18:27 | PCM.DCSUM1 ---
Discharge Summary - Hospital Course Free Text/Narrative:: 26-year-old female who represents to the emergency department approximately one week since her last visit with significant abdominal pain. Patient has a known history of endometriosis but had stopped using her Femara and progesterone therapy about a month ago. On 01/05/17 she was seen in the ED for similar complaints by Dr. Welsh with abdominal pain and was prescribed Femara and progesterone as well as narcotic pain medications. She reports that since that visit her pain has overall been controlled until yesterday, 01/11/17, when she started having increased amounts of abdominal pain. She reports that the pain would get up to a significant level that would lead to nausea with emesis and some lightheadedness as a result of the emesis. The pain has been overall constant with occasional episodes where the pain decreases to approximately a 5-6 out of 10. She had been using the Femara and progesterone daily as prescribed. She denies any fevers or chills. She denies any dysuria or urinary frequency/urgency. She reports that she does have pain with bowel movements and she was told that she had endometriosis lesions on her colon at her last surgery. She required multiple doses of narcotic pain medication in the emergency room and did not feel comfortable to go home to manage this there. HPI Initial Comments: 26-year-old female who represents to the emergency department approximately one week since her last visit with significant abdominal pain. Patient has a known history of endometriosis but had stopped using her Femara and progesterone therapy about a month ago. On 01/05/17 she was seen in the ED for similar complaints by Dr. Welsh with abdominal pain and was prescribed Femara and progesterone as well as narcotic pain medications. She reports that since that visit her pain has overall been controlled until yesterday, 01/11/17, when she started having increased amounts of abdominal pain. She reports that the pain would get up to a significant level that would lead to nausea with emesis and some lightheadedness as a result of the emesis. The pain has been overall constant with occasional episodes where the pain decreases to approximately a 5-6 out of 10. She had been using the Femara and progesterone daily as prescribed. She denies any fevers or chills. She denies any dysuria or urinary frequency/urgency. She reports that she does have pain with bowel movements and she was told that she had endometriosis lesions on her colon at her last surgery. She required multiple doses of narcotic pain medication in the emergency room and did not feel comfortable to go home to manage this there. Brief History: 26-year-old female who represents to the emergency department approximately one week since her last visit with significant abdominal pain. Patient has a known history of endometriosis but had stopped using her Femara and progesterone therapy about a month ago. On 01/05/17 she was seen in the ED for similar complaints by Dr. Welsh with abdominal pain and was prescribed Femara and progesterone as well as narcotic pain medications. She reports that since that visit her pain has overall been controlled until yesterday, 01/11/17, when she started having increased amounts of abdominal pain. She reports that the pain would get up to a significant level that would lead to nausea with emesis and some lightheadedness as a result of the emesis. The pain has been overall constant with occasional episodes where the pain decreases to approximately a 5-6 out of 10. She had been using the Femara and progesterone daily as prescribed. She denies any fevers or chills. She denies any dysuria or urinary frequency/urgency. She reports that she does have pain with bowel movements and she was told that she had endometriosis lesions on her colon at her last surgery. She required multiple doses of narcotic pain medication in the emergency room and did not feel comfortable to go home to manage this there. - Discharge Data Discharge Date: 01/12/17 Discharge Disposition: Home, Self-Care 01 Condition: Good - Discharge Diagnosis/Problem(s) (1) Endometriosis SNOMED Code(s): 256073339 ICD Code: N80.9 - ENDOMETRIOSIS, UNSPECIFIED Status: Acute (2) Vomiting SNOMED Code(s): 070064371 ICD Code: R11.10 - VOMITING, UNSPECIFIED Status: Acute Qualifiers: Vomiting type: unspecified Vomiting Intractability: non-intractable Nausea presence: with nausea Qualified Code(s): R11.2 - Nausea with vomiting, unspecified (3) Pelvic pain SNOMED Code(s): 59465128 ICD Code: R10.2 - PELVIC AND PERINEAL PAIN Status: Acute - Patient Summary/Data Operative Procedure(s) Performed: None Complications: None Consults: None Hospital Course: 26-year-old female who represents to the emergency department approximately one week since her last visit with significant abdominal pain. Patient has a known history of endometriosis but had stopped using her Femara and progesterone therapy about a month ago. On 01/05/17 she was seen in the ED for similar complaints by Dr. Welsh with abdominal pain and was prescribed Femara and progesterone as well as narcotic pain medications. She reports that since that visit her pain has overall been controlled until yesterday, 01/11/17, when she started having increased amounts of abdominal pain. She reports that the pain would get up to a significant level that would lead to nausea with emesis and some lightheadedness as a result of the emesis. The pain has been overall constant with occasional episodes where the pain decreases to approximately a 5-6 out of 10. She had been using the Femara and progesterone daily as prescribed. She denies any fevers or chills. She denies any dysuria or urinary frequency/urgency. She reports that she does have pain with bowel movements and she was told that she had endometriosis lesions on her colon at her last surgery. She required multiple doses of narcotic pain medication in the emergency room and did not feel comfortable to go home to manage this there. Patient was kept for observation and was given several doses of IV medication for pain. She was able to sleep throughout the night and was feeling somewhat improved in the morning. She was able to take oral pain medications and seemed to work better for her pain. She was able to tolerate a regular diet. Her nausea was improved. In early evening of hospital day #1 she felt like she was doing well enough to be able to be discharged home. She will follow up with me in the clinic in 1-2 weeks. - Patient Instructions Diet: Regular Diet as Tolerated Activity: As Tolerated Driving: Do Not Drive (while taking narcotic pain medications) Showering/Bathing: May Shower Notify Provider of: Fever, Increased Pain, Nausea and/or Vomiting - Discharge Plan Prescriptions/Med Rec: Acetaminophen/oxyCODONE [Percocet 325-5 MG] 1 - 2 tab PO Q6H PRN #20 tablet PRN Reason: Pain Norethindrone Acetate 5 mg PO DAILY #60 tablet Ondansetron [Zofran ODT] 1 tab PO ASDIRECTED PRN #30 tab.dis PRN Reason: Nausea Promethazine [Phenergan] 12.5 mg PO Q6H PRN #30 tab PRN Reason: nausea Home Medications: Home Meds Cranberry Ext/C/L. Sporogenes [Azo Cranberry] 1 tab PO DAILY 01/05/17 [History] buPROPion [Wellbutrin SR] 150 mg PO DAILY 01/05/17 [History] valACYclovir [Valtrex] 1,000 mg PO DAILY 01/05/17 [History] Acetaminophen/oxyCODONE [Percocet 325-5 MG] 1 - 2 tab PO Q6H PRN #20 tablet [Rx] Docusate Sodium [Colace] 100 mg PO BID PRN cap 01/12/17 [Rx] Ibuprofen [IJD: Ibuprofen] 600 mg PO Q6H PRN tablet 01/12/17 [Rx] Letrozole [Femara] 2.5 mg PO DAILY 01/12/17 [History] Norethindrone Acetate 5 mg PO DAILY #60 tablet 01/12/17 [Rx] Ondansetron [Zofran ODT] 1 tab PO ASDIRECTED PRN #30 tab.dis 01/12/17 [Rx] Promethazine [Phenergan] 12.5 mg PO Q6H PRN #30 tab 01/12/17 [Rx] Patient Handouts: Endometriosis, Nausea and Vomiting, Adult Forms: ED Department Discharge Referrals: Lalit Patel MD [Physician] - 01/18/17 9:00 am (co-pay $65.00 at time of appt. and arrive to appt. by 8:30 for registration) - Discharge Summary/Plan Comment DC Time >30 min.: No - Patient Data Vitals - Most Recent: Last Vital Signs Temp 36.6 C 01/12/17 10:57 Pulse 110 H 01/12/17 10:57 Resp 12 01/12/17 10:57 BP 114/63 01/12/17 10:57 Pulse Ox 99 01/12/17 10:57 Weight - Most Recent: 62.188 kg I&O - Last 24 hours: Intake & Output 01/12/17 01/12/17 01/12/17 06:59 14:59 22:59 Intake Total 4310 226 3863 Balance 8547 767 9795 Lab Results - Last 24 hrs: Laboratory Results - last 24 hr 01/12/17 Range/Units 10:48 WBC 8.51 (3.98-10.04) K/mm3 RBC 3.97 L (3.98-5.22) M/mm3 Hgb 11.6 (11.2-15.7) gm/L Hct 35.4 (34.1-44.9) % MCV 89.2 (79.4-94.8) fl MCH 29.2 (25.6-32.2) pg MCHC 32.8 (32.2-35.5) g/dl RDW Std Deviation 41.8 (36.4-46.3) fL Plt Count 200 (182-369) K/mm3 MPV 10.6 (9.4-12.3) fl Neut % (Auto) 58.1 (34.0-71.1) % Lymph % (Auto) 27.5 (19.3-51.7) % Hale % (Auto) 6.6 (4.7-12.5) % Eos % (Auto) 7.3 H (0.7-5.8) Baso % (Auto) 0.4 (0.1-1.2) % Neut # (Auto) 4.95 (1.56-6.13) K/mm3 Lymph # (Auto) 2.34 (1.18-3.74) K/mm3 Hale # (Auto) 0.56 H (0.24-0.36) K/mm3 Eos # (Auto) 0.62 H (0.04-0.36) K/mm3 Baso # (Auto) 0.03 (0.01-0.08) K/mm3 Med Orders - Current: Current Medications Docusate Sodium (Colace) 100 mg PO BID PRN PRN Reason: Constipation Hydromorphone HCl (Dilaudid) 0.5 mg IVPUSH Q2H PRN PRN Reason: Pain (severe 7-10) Lactated Ringer's (Ringers, Lactated) 1,000 mls @ 125 mls/hr IV ASDIRECTED [facility] Last Admin: 01/12/17 12:43 Dose: 125 mls/hr Ibuprofen (Motrin) 600 mg PO Q6H PRN PRN Reason: Pain (moderate 4-6) Magnesium Hydroxide (Milk Of Magnesia) 30 ml PO Q12H PRN PRN Reason: Constipation Medroxyprogesterone Acetate (Provera) 10 mg PO DAILY [facility] Last Admin: 01/12/17 10:58 Dose: 10 mg Ondansetron HCl (Zofran) 4 mg IV Q4H PRN PRN Reason: Nausea/Vomiting Last Admin: 01/12/17 18:09 Dose: 4 mg Oxycodone/Acetaminophen (Percocet 325-5 Mg) 2 tab PO Q4H PRN PRN Reason: Pain (moderate 4-6) Last Admin: 01/12/17 18:02 Dose: 2 tab Bupropion 150 Mg Sr 0 each PO DAILY [facility] Last Admin: 01/12/17 10:27 Dose: Not Given Letrozole 2.5 Mg 0 each PO DAILY [facility] Last Admin: 01/12/17 10:27 Dose: Not Given Sodium Chloride (Saline Flush) 10 ml FLUSH ASDIRECTED PRN PRN Reason: Keep Vein Open Valacyclovir HCl (Valtrex) 1,000 mg PO DAILY [facility] Last Admin: 01/12/17 09:57 Dose: 1,000 mg Discontinued Medications Hydromorphone HCl (Dilaudid) 0.5 mg IVPUSH ONETIME ONE Stop: 01/11/17 21:36 Last Admin: 01/11/17 22:01 Dose: 0.5 mg Hydromorphone HCl (Dilaudid) 0.5 mg IVPUSH Q2H PRN PRN Reason: Pain (severe 7-10) Sodium Chloride (Normal Saline) 1,000 mls @ 999 mls/hr IV ONETIME ONE Stop: 01/11/17 21:32 Last Admin: 01/11/17 20:51 Dose: 999 mls/hr Sodium Chloride (Normal Saline) 1,000 mls @ 150 mls/hr IV ASDIRECTED [facility] Last Admin: 01/11/17 22:16 Dose: 150 mls/hr Iopamidol (Isovue-300 (61%)) 125 ml IVPUSH ONETIME ONE Stop: 01/12/17 00:55 Last Admin: 01/12/17 01:23 Dose: 125 ml Metoclopramide HCl (Reglan) 10 mg IVPUSH ONETIME ONE Stop: 01/11/17 23:44 Last Admin: 01/12/17 00:00 Dose: Not Given Morphine Sulfate (Morphine) 4 mg IVPUSH Q2H PRN PRN Reason: Pain Last Admin: 01/12/17 04:02 Dose: 4 mg Non-Formulary Medication (Letrozole) 2.5 mg PO DAILY NGUYEN Last Admin: 01/12/17 04:51 Dose: Not Given Ondansetron HCl (Zofran) 4 mg IVPUSH ONETIME ONE Stop: 01/11/17 20:33 Last Admin: 01/11/17 20:51 Dose: 4 mg Ondansetron HCl (Zofran) 4 mg IVPUSH ONETIME ONE Stop: 01/11/17 21:53 Last Admin: 01/11/17 22:01 Dose: 4 mg Ondansetron HCl (Zofran) 4 mg IVPUSH Q4H PRN PRN Reason: Nausea/Vomiting Last Admin: 01/12/17 03:56 Dose: 4 mg Ondansetron HCl (Zofran) Confirm Administered Dose 4 mg .ROUTE .STK-MED ONE Stop: 01/12/17 03:52 Last Admin: 01/12/17 04:10 Dose: Not Given Promethazine HCl (Phenergan) 25 mg PO ONETIME ONE Stop: 01/11/17 23:51 Last Admin: 01/12/17 00:03 Dose: 25 mg Sodium Chloride (Saline Flush) 10 ml FLUSH ASDIRECTED PRN PRN Reason: Keep Vein Open Last Admin: 01/11/17 20:51 Dose: 10 ml *Q Meaningful Use (DIS) - VTE *Q VTE Criteria *Q: - Stroke *Q Stroke Criteria *Q: - AMI *Q AMI Criteria *Q:
--- NOTE | 2017-01-16 12:52 | US ---
Pelvic ultrasound: Multiple real-time images were obtained transvaginally. Comparison: Previous pelvic ultrasound study of 01/05/17. Findings: Uterus is anteverted. No myometrial abnormality is identified. Endometrial thickness is normal at 1.5 cm. Mild amount of free fluid is seen most likely physiologic. Right ovary difficult to see due to bowel gas and stool. Left ovary appears heterogeneous and difficult to exclude ovarian mass versus hemorrhagic collapsing cyst, second felt to be most likely given patient's age. Measurements: Uterus: Length 8.2 cm, AP height 4.1 cm, width 4.7 cm Left ovary: 5.8 x 4.5 x 4.8 cm Impression: 1. Heterogeneously and enlarged left ovary. Findings could represent an ovarian mass but given patient's age more likely etiology is a collapsing hemorrhagic cyst. Finding is fairly stable from previous ultrasound of 01/05/17. Follow-up study could be obtained in 3 months to hopefully confirm disappearance of finding. 2. Free fluid is seen believed to be physiologic. 3. Pelvic ultrasound is otherwise unremarkable. Diagnostic code #3 I agree with preliminary report issued by [facility] ([facility] report finalized on 01/12/17, 12:52 AM Central Time)
== END 2017-01-12 19:30 | disposition home or self-care (01) ==
LOC: JD.ED 19:36 → JD.MS 01-12 02:51
PROVIDERS: ADMIT Obstetrics & Gynecology; ATTEND Obstetrics & Gynecology
DX: N80.9 Endometriosis, unspecified (principal); R11.10 Vomiting, unspecified; R10.2 Pelvic and perineal pain; M79.7 Fibromyalgia; Z87.440 Personal history of urinary (tract) infections; Z79.899 Other long term (current) drug therapy; Z90.49 Acquired absence of other specified parts of digestive tract; Z90.89 Acquired absence of other organs; Z98.890 Other specified postprocedural states
CPT/HCPCS: 36415; 74177; 76830; 80053; 81001; 83690; 84703; 85025; 86140; 96361; 96374; 96375; 96376; 99285; A9270; G0378; J1170; J2270; J2405; J7040; J7050; J7120; Q0169; Q9967

== ENCOUNTER → 2017-01-27 | Day surgery (SDC) | payer BC ==
[~2017-01-27] MED LIST: Acetaminophen/oxyCODONE 325-5 MG Tab PO PRN; Bupivacaine 0.5% 30 ML SDV ONE; Dexamethasone 4 MG/ML SDV ONE; Docusate Sodium 100 MG Cap PO SCH; Famotidine 20 MG Tab PO SCH; HYDROmorphone 0.5 MG/0.5 ML Syringe IVPUSH PRN; HYDROmorphone 1 MG/ML Syringe ONE; Ketorolac 15 MG/ML SDV IVPUSH SCH; LETROZOLE 2.5 MG PO SCH; Lactated Ringers 1,000 ML IV SCH; Lactated Ringers 1,000 ML ONE; Lidocaine 1% 4 ML ONE; Lidocaine 1%/Sod Bicarbonate in NS 8.4% 1 ML Syringe IV PRN; Midazolam 1 MG/ML 2 ML SDV ONE; Morphine 10 MG/ML Syringe IM PRN; Ondansetron 4 MG Tab.DIS PO PRN; Ondansetron 4 MG/2 ML SDV IVPUSH PRN; Ondansetron 4 MG/2 ML SDV ONE; Propofol 200 MG/20 ML SDV ONE; Rocuronium 50 MG/5 ML Vial ONE; Scopolamine 1.5 MG Transdermal Patch TRDERM ONE; Sodium Chloride 0.9% 10 ML Syringe FLUSH PRN; [UNRECOGNIZED DRUG - OTHER] PO SCH; diphenhydrAMINE 50 MG/ML SDV IVPUSH PRN; fentaNYL 250 MCG/5 ML SDV ONE; hydrOXYzine HCl 25 MG/ML SDV IM PRN
[2017-01-27] MEDS: Lactated Ringers 1,000 ML IV SCH ×2 (10:00→18:33)
--- NOTE | 2017-01-27 10:04 | PCM.PREANE ---
Preanesthetic Assessment - Procedure Proposed Procedure: Laparoscopic ovarian cystectomy and fulguration of endometriosis - Anesthesia/Transfusion/Family Hx Anesthesia History: Prior Anesthesia Without Reaction Type of Anesthesia Reaction: Excessive Nausea/Vomiting Family History of Anesthesia Reaction: No Transfusion History: No Prior Transfusion(s) Intubation History: Unknown - Review of Systems General: No Symptoms Pulmonary: No Symptoms Cardiovascular: No Symptoms Gastrointestinal: No Symptoms Neurological: Other (fibromyalagia, L4-5 bulging disc) Other: Reports: Easy Bruising, Depression, Anxiety - Physical Assessment NPO Status Date: 01/26/17 NPO Status Time: 23:00 Pulse: 100 O2 Sat by Pulse Oximetry: 95 Respiratory Rate: 16 Blood Pressure: 115/75 Temperature: 36.5 C Height: 12.7 cm Weight: 62.188 kg ASA Class: 2 Mental Status: Alert & Oriented x3 Airway Class: Mallampati = 1 Dentition: Reports: Normal Dentition Thyro-Mental Finger Breadths: 3 Mouth Opening Finger Breadths: 3 ROM/Head Extension: Full Lungs: Clear to Auscultation, Normal Respiratory Effort Cardiovascular: Regular Rate, Regular Rhythm - Lab Values: Laboratory Last Values WBC 9.05 K/mm3 (3.98-10.04) 01/26/17 14:22 RBC 4.57 M/mm3 (3.98-5.22) 01/26/17 14:22 Hgb 13.4 gm/L (11.2-15.7) 01/26/17 14:22 Hct 40.1 % (34.1-44.9) 01/26/17 14:22 MCV 87.7 fl (79.4-94.8) 01/26/17 14:22 MCH 29.3 pg (25.6-32.2) 01/26/17 14:22 MCHC 33.4 g/dl (32.2-35.5) 01/26/17 14:22 RDW Std Deviation 40.9 fL (36.4-46.3) 01/26/17 14:22 Plt Count 272 K/mm3 (182-369) 01/26/17 14:22 MPV 10.4 fl (9.4-12.3) 01/26/17 14:22 Neut % (Auto) 62.2 % (34.0-71.1) 01/26/17 14:22 Lymph % (Auto) 29.2 % (19.3-51.7) 01/26/17 14:22 Teller % (Auto) 5.5 % (4.7-12.5) 01/26/17 14:22 Eos % (Auto) 2.5 (0.7-5.8) 01/26/17 14:22 Baso % (Auto) 0.4 % (0.1-1.2) 01/26/17 14:22 Neut # (Auto) 5.62 K/mm3 (1.56-6.13) 01/26/17 14:22 Lymph # (Auto) 2.64 K/mm3 (1.18-3.74) 01/26/17 14:22 Teller # (Auto) 0.50 K/mm3 (0.24-0.36) H 01/26/17 14:22 Eos # (Auto) 0.23 K/mm3 (0.04-0.36) 01/26/17 14:22 Baso # (Auto) 0.04 K/mm3 (0.01-0.08) 01/26/17 14:22 Sodium 142 mEq/L (136-145) 01/26/17 14:22 Potassium 3.8 mEq/L (3.5-5.1) 01/26/17 14:22 Chloride 107 mEq/L (98-107) 01/26/17 14:22 Carbon Dioxide 24 mEq/L (21-32) 01/26/17 14:22 Anion Gap 14.8 (5-15) 01/26/17 14:22 BUN 14 mg/dL (7-18) 01/26/17 14:22 Creatinine 0.6 mg/dL (0.55-1.02) 01/26/17 14:22 Est Cr Clr Drug Dosing TNP 01/26/17 14:22 Estimated GFR (MDRD) > 60 mL/min (>60) 01/26/17 14:22 BUN/Creatinine Ratio 23.3 (14-18) H 01/26/17 14:22 Glucose 95 mg/dL (74-106) 01/26/17 14:22 Calcium 9.4 mg/dL (8.5-10.1) 01/26/17 14:22 Urine HCG, Qual Negative (NEGATIVE) 01/26/17 14:22 - Allergies Allergies/Adverse Reactions: Allergies Allergy/AdvReac Type Severity Reaction Status Date / Time amitriptyline [From Elavil] Allergy Rash Verified 01/26/17 15:44 levofloxacin [From Levaquin] Allergy Hives Verified 01/26/17 15:44 metaxalone [From Skelaxin] Allergy Cannot Verified 01/26/17 15:44 Remember metoclopramide [From Reglan] AdvReac Paralysis Verified 01/26/17 15:44 - Blood Blood Available: No Product(s) Available: None - Anesthesia Plan Pre-Op Medication Ordered: None - Acknowledgements Anesthesia Type Planned: General Anesthesia (TIVA recommended ) Pt an Appropriate Candidate for the Planned Anesthesia: Yes Alternatives and Risks of Anesthesia Discussed w Pt/Guardian: Yes Pt/Guardian Understands and Agrees with Anesthesia Plan: Yes PreAnesthesia Questionnaire HEENT History: Reports: None Cardiovascular History: Reports: None Respiratory History: Reports: None Gastrointestinal History: Reports: None Genitourinary History: Reports: UTI, Recurrent Other Genitourinary History: previously admitted for ovarian cyst. 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 Musculoskeletal History: Reports: Fibromyalgia Neurological History: Reports: None Psychiatric History: Reports: Anxiety, Depression, Other (See Below) Other Psychiatric History: from symptoms of endometriosis and hormones Endocrine/Metabolic History: Reports: None Hematologic History: Reports: Anemia Immunologic History: Reports: None Oncologic (Cancer) History: Reports: None Dermatologic History: Reports: None - Infectious Disease History Infectious Disease History: Reports: None - Past Surgical History Head Surgeries/Procedures: Reports: None HEENT Surgical History: Reports: Tonsillectomy Cardiovascular Surgical History: Reports: None Respiratory Surgical History: Reports: None GI Surgical History: Reports: Appendectomy Other GI Surgeries/Procedures: entermetrosis surgeries. Female Surgical History: Reports: Other (See Below) Other Female Surgeries/Procedures: endometriosis, cysts removed and drained Endocrine Surgical History: Reports: None Neurological Surgical History: Reports: None Musculoskeletal Surgical History: Reports: None Oncologic Surgical History: Reports: None Dermatological Surgical History: Reports: None - SUBSTANCE USE Smoking Status *Q: Never Smoker Second Hand Smoke Exposure: No Days Per Week of Alcohol Use: 1 Number of Drinks Per Day: 1 Total Drinks Per Week: 1 Recreational Drug Use History: No - HOME MEDS Home Medications: Home Meds Cranberry Ext/C/L. Sporogenes [Azo Cranberry] 1 tab PO DAILY 01/05/17 [History] valACYclovir [Valtrex] 1,000 mg PO DAILY 01/05/17 [History] Ibuprofen [IJD: Ibuprofen] 600 mg PO Q6H PRN tablet 01/12/17 [Rx] Letrozole [Femara] 2.5 mg PO DAILY 01/12/17 [History] Ondansetron [Zofran ODT] 1 tab PO ASDIRECTED PRN #30 tab.dis 01/12/17 [Rx] - CURRENT (IN HOUSE) MEDS Current Meds: Current Medications Lactated Ringer's (Ringers, Lactated) 1,000 mls @ 125 mls/hr IV ASDIRECTED NGUYEN Stop: 01/27/17 23:00 Lidocaine/Sodium Bicarbonate (Buffered Lidocaine 1% In Ns 8.4%) 0.25 ml IV ONETIME PRN PRN Reason: Prior to IV Start Stop: 01/27/17 18:00 Sodium Chloride (Saline Flush) 10 ml FLUSH ASDIRECTED PRN PRN Reason: Keep Vein Open Stop: 01/27/17 18:00 Discontinued Medications Dexamethasone (Dexamethasone) Confirm Administered Dose 4 mg .ROUTE .STK-MED ONE Stop: 01/27/17 09:59 Fentanyl (Sublimaze) Confirm Administered Dose 250 mcg .ROUTE .STK-MED ONE Stop: 01/27/17 09:58 Lidocaine HCl (Xylocaine-Mpf 1%) Confirm Administered Dose 4 mls @ as directed .ROUTE .STK-MED ONE Stop: 01/27/17 09:59 Midazolam HCl (Versed 1 Mg/Ml) Confirm Administered Dose 2 mg .ROUTE .STK-MED ONE Stop: 01/27/17 09:58 Ondansetron HCl (Zofran) Confirm Administered Dose 4 mg .ROUTE .STK-MED ONE Stop: 01/27/17 09:59 Propofol (Diprivan 20 Ml) Confirm Administered Dose 200 mg .ROUTE .STK-MED ONE Stop: 01/27/17 09:58 Rocuronium [place] (Zemuron) Confirm Administered Dose 50 mg .ROUTE .STK-MED ONE Stop: 01/27/17 09:59
--- NOTE | 2017-01-27 10:23 | PCM.HPR ---
H & P Addendum review - H & P Addendum Review Date of Original H & P: 01/26/17 Date Reviewed: 01/27/17 Time Reviewed: 10:22 Patient was Examined: No Changes
[2017-01-27] MEDS: fentaNYL 100 MCG/2 ML SDV IVPUSH PRN ×3 (12:40→14:00)
[2017-01-27] MEDS: HYDROmorphone 0.5 MG/0.5 ML Syringe IVPUSH PRN ×2 (12:41→12:58)
--- NOTE | 2017-01-27 12:42 | PCM.POSTAN ---
POST ANESTHESIA ASSESSMENT - MENTAL STATUS Mental Status: Alert, Oriented - VITAL SIGNS Pulse Rate: 114 SaO2: 99 Resp Rate: 12 Blood Pressure: 123/76 Temperature: 87.7 F - RESPIRATORY Respiratory Status: Respiratory Rate WNL, Airway Patent, O2 Saturation Stable - CARDIOVASCULAR CV Status: Pulse Rate WNL, Blood Pressure Stable - GASTROINTESTINAL GI Status: No Symptoms - PAIN Pain Score: 8 - POST OP HYDRATION Hydration Status: Adequate & Stable
--- NOTE | 2017-01-27 12:43 | PCM.OPNOTE ---
- General Post-Op/Procedure Note Date of Surgery/Procedure: 01/27/17 Operative Procedure(s): Laparoscopic ovarian cystectomy of left endometrioma and lysis of adhesions Findings: Multiple endometriosis lesions in anterior abdominal wall, adhesion of omentum to anterior abdominal wall at the level of the umbilicus on the right side of the abdomen, uterus with hypervascularity and previous scarring from laparoscopy with additional endometriosis lesion on posterior wall of the uterus , right fallopian tube with significant adhesions, approximately 0.5 and centimeter wide portion of right ovary that is lush with the remaining adnexal surface, Pre Op Diagnosis: Pelvic pain and endometriosis Post-Op Diagnosis: Same, endometrioma of left ovary Anesthesia Technique: General ET Tube Primary Surgeon: Lalit Patel Secondary Surgeon: Eduardo Kevin Anesthesia Provider: Cornelius Jeter Reason Front Office Help Was Necessary: Assistance with laparoscopy as no neurosurgical physician assistant with laparoscopic skills available Role of Front Office Help: Assisting with laparoscopy and the surgical management during the case. Pathology: Ovarian endometrioma of left ovary Fluid Replacement, Intraop: 1,600 Output, Urine Amount: 100 EBL in mLs: 50 Complications: None Condition: Good Free Text/Narrative:: Procedure in detail: Patient was seen in the preoperative holding area. She was counseled on the risks, benefits and alternatives of the procedure and she desired to proceed with laparoscopy with ovarian cystectomy and possible lysis of adhesions. She was taken back to the operating room. She was given general anesthesia with endotracheal tube was placed without difficulty. She was placed in dorsal lithotomy position using yellowfin stirrups. She was prepped and draped in normal sterile fashion. A uterine manipulator was placed without difficulty. The uterus sounded to 7 cm. A Antoine catheter was placed and had good drainage of urine. Attention was then turned to the abdomen and the inferior umbilicus was injected with 0.5% Marcaine. An incision was made with scalpel and Veress needle was inserted. Gas was turned on and opening pressure was noted to be 13-15 mmHg. The Veress needle was attempted to be passed again and the gas was turned on and again noted to be 13-15 mmHg. Decision was made to abort using the Veress needle. The laparoscope was then inserted under direct visualization with tenting upwards of the abdomen and was inserted into the peritoneal cavity. The camera was then inserted into the trocar and a global assessment of the abdominal cavity was taken. Close attention was paid to the area where possible trauma from the Veress needle may have occurred. There was no bleeding noted. To the right of the umbilicus there is noted to be a filmy adhesion of the omentum to the anterior abdominal wall. The liver and spleen appeared normal. The bowel appeared normal. Attention was then turned to the lower pelvis and the area where a previous laparoscopic port was placed was injected with 0.5% Marcaine and an incision was made. A 5 mm trocar was placed under direct visualization without difficulty. The pelvis was then further explored and there was noted to be several endometriosis lesions on the anterior abdominal wall. The uterus was then visualized there was noted to be hypervascularity on the posterior and fundal portion of the uterus. There was noted to be a endometriosis lesion on the posterior wall of the uterus. Attention was then turned to the right adnexa where there is noted to be significant amount of scarring on the right fallopian tube with several small cysts present. There was only a small streak portion of the ovary left on the right side from previous surgery. Attention was then turned to the left adnexa where the tube was noted to be overall normal but there were some adhesions to the round ligament and uterus. The ovary was visualized and there was noted be an endometrioma measuring approximately 3-4 cm within the ovary. In the posterior cul-de-sac there was noted to be moderate amount of bloody fluid. Attention was then turned to the right lower quadrant and the skin was injected with 0.5% Marcaine and an incision was made with a scalpel. A 5 mm trocar was inserted under direct visualization without difficulty. Attention was then turned to the left lower quadrant of the abdomen and again the skin was injected with 0.5% Marcaine and incision was made with scalpel. A 5 mm trocar was inserted under direct visualization without difficulty. Attention was then turned to the previously noted omental adhesion to the anterior abdominal wall and the right side of the abdomen. This is taken down using the Harmonic scalpel. Chin was then turned to the pelvis. The left ovary was then grasped using an atraumatic grasper and a Harmonic scalpel was used to remove the endometrioma. The 5 mm suprapubic port was removed and a 12 mm port was inserted to allow further removal of the ovarian endometrioma. A Endo Catch bag was inserted through the suprapubic port and the endometrioma was placed into the bag and this was removed without difficulty. The remaining fluid in the cul-de-sac was suctioned out. Attention was then turned to the left fallopian tube and the adhesions to the uterus and round ligament were taken down using a harmonic scalpel and blunt traction. The endometriosis lesions on the anterior abdominal wall were then fulgurated using the Harmonic scalpel. The endometriosis lesion on the posterior uterus was fulgurated using the Harmonic scalpel. Attention was then turned to the uterosacral ligament attachments were as noted be small amount of adhesion and endometriosis lesion present. A small portion of the adhesion was incised using the Harmonic scalpel. Due to the proximity of the ureter was felt that it would not be safe to fulgurate the endometriosis lesion in this site. The procedure was complete at this time. A Ethan-Eugenio needle was then used to close the suprapubic port using 0 Vicryl. The remaining lateral ports were removed under direct visualization and no bleeding was noted. The gas was removed from the abdomen. The umbilical port was removed without difficulty. The incision sites were then closed using interrupted sutures of 4-0 Monocryl. Dermabond was placed over the incisions. The patient was awoken and taken to the PACU for recovery. Plan is for patient to be discharged home if she is able to get good pain control, tolerating a regular diet, ambulate and void without difficulty. Instrument, sponge, lap and needle count were correct at the end of case.
[2017-01-27 20:14] VITALS: BP 107/70
--- NOTE | 2017-01-28 11:29 | PCM.DCSUM1 ---
Discharge Summary - Hospital Course Free Text/Narrative:: [facility] Post-Op/Procedure Note Patient Name: JOBY CHAUHAN Date of : 89 Patient Status: Surgical Day Care Attending Provider: Lalit Patel Date: 01/27/17 12:43 Initialization Date: 01/27/17 12:43 - General Post-Op/Procedure Note Date of Surgery/Procedure: 01/27/17 Operative Procedure(s): Laparoscopic ovarian cystectomy of left endometrioma and lysis of adhesions Findings: Multiple endometriosis lesions in anterior abdominal wall, adhesion of omentum to anterior abdominal wall at the level of the umbilicus on the right side of the abdomen, uterus with hypervascularity and previous scarring from laparoscopy with additional endometriosis lesion on posterior wall of the uterus , right fallopian tube with significant adhesions, approximately 0.5 and centimeter wide portion of right ovary that is lush with the remaining adnexal surface, Pre Op Diagnosis: Pelvic pain and endometriosis Post-Op Diagnosis: Same, endometrioma of left ovary Anesthesia Technique: General ET Tube Primary Surgeon: Lalit Patel Secondary Surgeon: Eduardo Kevin Anesthesia Provider: Cornelius Jeter Reason Cardiac Catheterization Technologist Was Necessary: Assistance with laparoscopy as no surgical attendant with laparoscopic skills available Role of Cardiac Catheterization Technologist: Assisting with laparoscopy and the surgical management during the case. Pathology: Ovarian endometrioma of left ovary Fluid Replacement, Intraop: 1,600 Output, Urine Amount: 100 EBL in mLs: 50 Complications: None Condition: Good Free Text/Narrative:: Procedure in detail: Patient was seen in the preoperative holding area. She was counseled on the risks, benefits and alternatives of the procedure and she desired to proceed with laparoscopy with ovarian cystectomy and possible lysis of adhesions. She was taken back to the operating room. She was given general anesthesia with endotracheal tube was placed without difficulty. She was placed in dorsal lithotomy position using yellowfin stirrups. She was prepped and draped in normal sterile fashion. A uterine manipulator was placed without difficulty. The uterus sounded to 7 cm. A Antoine catheter was placed and had good drainage of urine. Attention was then turned to the abdomen and the inferior umbilicus was injected with 0.5% Marcaine. An incision was made with scalpel and Veress needle was inserted. Gas was turned on and opening pressure was noted to be 13-15 mmHg. The Veress needle was attempted to be passed again and the gas was turned on and again noted to be 13-15 mmHg. Decision was made to abort using the Veress needle. The laparoscope was then inserted under direct visualization with tenting upwards of the abdomen and was inserted into the peritoneal cavity. The camera was then inserted into the trocar and a global assessment of the abdominal cavity was taken. Close attention was paid to the area where possible trauma from the Veress needle may have occurred. There was no bleeding noted. To the right of the umbilicus there is noted to be a filmy adhesion of the omentum to the anterior abdominal wall. The liver and spleen appeared normal. The bowel appeared normal. Attention was then turned to the lower pelvis and the area where a previous laparoscopic port was placed was injected with 0.5% Marcaine and an incision was made. A 5 mm trocar was placed under direct visualization without difficulty. The pelvis was then further explored and there was noted to be several endometriosis lesions on the anterior abdominal wall. The uterus was then visualized there was noted to be hypervascularity on the posterior and fundal portion of the uterus. There was noted to be a endometriosis lesion on the posterior wall of the uterus. Attention was then turned to the right adnexa where there is noted to be significant amount of scarring on the right fallopian tube with several small cysts present. There was only a small streak portion of the ovary left on the right side from previous surgery. Attention was then turned to the left adnexa where the tube was noted to be overall normal but there were some adhesions to the round ligament and uterus. The ovary was visualized and there was noted be an endometrioma measuring approximately 3-4 cm within the ovary. In the posterior cul-de-sac there was noted to be moderate amount of bloody fluid. Attention was then turned to the right lower quadrant and the skin was injected with 0.5% Marcaine and an incision was made with a scalpel. A 5 mm trocar was inserted under direct visualization without difficulty. Attention was then turned to the left lower quadrant of the abdomen and again the skin was injected with 0.5% Marcaine and incision was made with scalpel. A 5 mm trocar was inserted under direct visualization without difficulty. Attention was then turned to the previously noted omental adhesion to the anterior abdominal wall and the right side of the abdomen. This is taken down using the Harmonic scalpel. Chin was then turned to the pelvis. The left ovary was then grasped using an atraumatic grasper and a Harmonic scalpel was used to remove the endometrioma. The 5 mm suprapubic port was removed and a 12 mm port was inserted to allow further removal of the ovarian endometrioma. A Endo Catch bag was inserted through the suprapubic port and the endometrioma was placed into the bag and this was removed without difficulty. The remaining fluid in the cul-de-sac was suctioned out. Attention was then turned to the left fallopian tube and the adhesions to the uterus and round ligament were taken down using a harmonic scalpel and blunt traction. The endometriosis lesions on the anterior abdominal wall were then fulgurated using the Harmonic scalpel. The endometriosis lesion on the posterior uterus was fulgurated using the Harmonic scalpel. Attention was then turned to the uterosacral ligament attachments were as noted be small amount of adhesion and endometriosis lesion present. A small portion of the adhesion was incised using the Harmonic scalpel. Due to the proximity of the ureter was felt that it would not be safe to fulgurate the endometriosis lesion in this site. The procedure was complete at this time. A Ethan-Eugenio needle was then used to close the suprapubic port using 0 Vicryl. The remaining lateral ports were removed under direct visualization and no bleeding was noted. The gas was removed from the abdomen. The umbilical port was removed without difficulty. The incision sites were then closed using interrupted sutures of 4-0 Monocryl. Dermabond was placed over the incisions. The patient was awoken and taken to the PACU for recovery. Plan is for patient to be discharged home if she is able to get good pain control, tolerating a regular diet, ambulate and void without difficulty. Instrument, sponge, lap and needle count were correct at the end of case. Patient left hospital at 1930 01/27/2017 without beeing seen by me. HPI Initial Comments: [facility] Post-Op/Procedure Note Patient Name: JOBY CHAUHAN Date of : 89 Patient Status: Surgical Day Care Attending Provider: Lalit Patel Date: 01/27/17 12:43 Initialization Date: 01/27/17 12:43 - General Post-Op/Procedure Note Date of Surgery/Procedure: 01/27/17 Operative Procedure(s): Laparoscopic ovarian cystectomy of left endometrioma and lysis of adhesions Findings: Multiple endometriosis lesions in anterior abdominal wall, adhesion of omentum to anterior abdominal wall at the level of the umbilicus on the right side of the abdomen, uterus with hypervascularity and previous scarring from laparoscopy with additional endometriosis lesion on posterior wall of the uterus , right fallopian tube with significant adhesions, approximately 0.5 and centimeter wide portion of right ovary that is lush with the remaining adnexal surface, Pre Op Diagnosis: Pelvic pain and endometriosis Post-Op Diagnosis: Same, endometrioma of left ovary Anesthesia Technique: General ET Tube Primary Surgeon: Lalit Patel Secondary Surgeon: Eduardo Kevin Anesthesia Provider: Cornelius Jeter Reason Cardiac Catheterization Technologist Was Necessary: Assistance with laparoscopy as no surgical attendant with laparoscopic skills available Role of Cardiac Catheterization Technologist: Assisting with laparoscopy and the surgical management during the case. Pathology: Ovarian endometrioma of left ovary Fluid Replacement, Intraop: 1,600 Output, Urine Amount: 100 EBL in mLs: 50 Complications: None Condition: Good Free Text/Narrative:: Procedure in detail: Patient was seen in the preoperative holding area. She was counseled on the risks, benefits and alternatives of the procedure and she desired to proceed with laparoscopy with ovarian cystectomy and possible lysis of adhesions. She was taken back to the operating room. She was given general anesthesia with endotracheal tube was placed without difficulty. She was placed in dorsal lithotomy position using yellowfin stirrups. She was prepped and draped in normal sterile fashion. A uterine manipulator was placed without difficulty. The uterus sounded to 7 cm. A Antoine catheter was placed and had good drainage of urine. Attention was then turned to the abdomen and the inferior umbilicus was injected with 0.5% Marcaine. An incision was made with scalpel and Veress needle was inserted. Gas was turned on and opening pressure was noted to be 13-15 mmHg. The Veress needle was attempted to be passed again and the gas was turned on and again noted to be 13-15 mmHg. Decision was made to abort using the Veress needle. The laparoscope was then inserted under direct visualization with tenting upwards of the abdomen and was inserted into the peritoneal cavity. The camera was then inserted into the trocar and a global assessment of the abdominal cavity was taken. Close attention was paid to the area where possible trauma from the Veress needle may have occurred. There was no bleeding noted. To the right of the umbilicus there is noted to be a filmy adhesion of the omentum to the anterior abdominal wall. The liver and spleen appeared normal. The bowel appeared normal. Attention was then turned to the lower pelvis and the area where a previous laparoscopic port was placed was injected with 0.5% Marcaine and an incision was made. A 5 mm trocar was placed under direct visualization without difficulty. The pelvis was then further explored and there was noted to be several endometriosis lesions on the anterior abdominal wall. The uterus was then visualized there was noted to be hypervascularity on the posterior and fundal portion of the uterus. There was noted to be a endometriosis lesion on the posterior wall of the uterus. Attention was then turned to the right adnexa where there is noted to be significant amount of scarring on the right fallopian tube with several small cysts present. There was only a small streak portion of the ovary left on the right side from previous surgery. Attention was then turned to the left adnexa where the tube was noted to be overall normal but there were some adhesions to the round ligament and uterus. The ovary was visualized and there was noted be an endometrioma measuring approximately 3-4 cm within the ovary. In the posterior cul-de-sac there was noted to be moderate amount of bloody fluid. Attention was then turned to the right lower quadrant and the skin was injected with 0.5% Marcaine and an incision was made with a scalpel. A 5 mm trocar was inserted under direct visualization without difficulty. Attention was then turned to the left lower quadrant of the abdomen and again the skin was injected with 0.5% Marcaine and incision was made with scalpel. A 5 mm trocar was inserted under direct visualization without difficulty. Attention was then turned to the previously noted omental adhesion to the anterior abdominal wall and the right side of the abdomen. This is taken down using the Harmonic scalpel. Chin was then turned to the pelvis. The left ovary was then grasped using an atraumatic grasper and a Harmonic scalpel was used to remove the endometrioma. The 5 mm suprapubic port was removed and a 12 mm port was inserted to allow further removal of the ovarian endometrioma. A Endo Catch bag was inserted through the suprapubic port and the endometrioma was placed into the bag and this was removed without difficulty. The remaining fluid in the cul-de-sac was suctioned out. Attention was then turned to the left fallopian tube and the adhesions to the uterus and round ligament were taken down using a harmonic scalpel and blunt traction. The endometriosis lesions on the anterior abdominal wall were then fulgurated using the Harmonic scalpel. The endometriosis lesion on the posterior uterus was fulgurated using the Harmonic scalpel. Attention was then turned to the uterosacral ligament attachments were as noted be small amount of adhesion and endometriosis lesion present. A small portion of the adhesion was incised using the Harmonic scalpel. Due to the proximity of the ureter was felt that it would not be safe to fulgurate the endometriosis lesion in this site. The procedure was complete at this time. A Ethan-Eugenio needle was then used to close the suprapubic port using 0 Vicryl. The remaining lateral ports were removed under direct visualization and no bleeding was noted. The gas was removed from the abdomen. The umbilical port was removed without difficulty. The incision sites were then closed using interrupted sutures of 4-0 Monocryl. Dermabond was placed over the incisions. The patient was awoken and taken to the PACU for recovery. Plan is for patient to be discharged home if she is able to get good pain control, tolerating a regular diet, ambulate and void without difficulty. Instrument, sponge, lap and needle count were correct at the end of case. Patient left hospital at 1930 01/27/2017 without beeing seen by me. Brief History: [facility] . Post-Op/Procedure Note. Patient Name: JOBY CHAUHAN [facility] Record Number: [id number]. Date of : Patient Status: Surgical Day Care. Attending Provider: Lalit Patel Number: [id number]. Date: 01/27/17 12:43Initialization Date: 12:43. - General Post-Op/Procedure Note. Date of Surgery/Procedure: . Operative Procedure(s): Laparoscopic ovarian cystectomy of left endometrioma and lysis of adhesions. Findings: Multiple endometriosis lesions in anterior abdominal wall, adhesion of omentum to anterior abdominal wall at the level of the umbilicus on the right side of the abdomen, uterus with hypervascularity and previous scarring from laparoscopy with additional endometriosis lesion on posterior wall of the uterus, right fallopian tube with significant adhesions, approximately 0.5 and centimeter wide portion of right ovary that is lush with the remaining adnexal surface,. Pre Op Diagnosis: Pelvic pain and endometriosis. Post-Op Diagnosis: Same, endometrioma of left ovary. Anesthesia Technique: General ET Tube. Primary Surgeon: Lalit Patel. Secondary Surgeon: Eduardo Kevin. Anesthesia Provider: Cornelius Jeter. Reason Cardiac Catheterization Technologist Was Necessary: Assistance with laparoscopy as no surgical attendant with laparoscopic skills available. Role of Cardiac Catheterization Technologist: Assisting with laparoscopy and the surgical management during the case. Pathology: Ovarian endometrioma of left ovary. Fluid Replacement, Intraop: 1,600. Output , Urine Amount: 100. EBL in mLs: 50. Complications: None. Condition: Good. Free Text/Narrative:: Procedure in detail: Patient was seen in the preoperative holding area. She was counseled on the risks, benefits and alternatives of the procedure and she desired to proceed with laparoscopy with ovarian cystectomy and possible lysis of adhesions. She was taken back to the operating room. She was given general anesthesia with endotracheal tube was placed without difficulty. She was placed in dorsal lithotomy position using yellowfin stirrups. She was prepped and draped in normal sterile fashion. A uterine manipulator was placed without difficulty. The uterus sounded to 7 cm. A Antoine catheter was placed and had good drainage of urine. Attention was then turned to the abdomen and the inferior umbilicus was injected with 0.5% Marcaine. An incision was made with scalpel and Veress needle was inserted. Gas was turned on and opening pressure was noted to be 13-15 mmHg. The Veress needle was attempted to be passed again and the gas was turned on and again noted to be 13-15 mmHg. Decision was made to abort using the Veress needle. The laparoscope was then inserted under direct visualization with tenting upwards of the abdomen and was inserted into the peritoneal cavity. The camera was then inserted into the trocar and a global assessment of the abdominal cavity was taken. Close attention was paid to the area where possible trauma from the Veress needle may have occurred. There was no bleeding noted. To the right of the umbilicus there is noted to be a filmy adhesion of the omentum to the anterior abdominal wall. The liver and spleen appeared normal. The bowel appeared normal. Attention was then turned to the lower pelvis and the area where a previous laparoscopic port was placed was injected with 0.5% Marcaine and an incision was made. A 5 mm trocar was placed under direct visualization without difficulty. The pelvis was then further explored and there was noted to be several endometriosis lesions on the anterior abdominal wall. The uterus was then visualized there was noted to be hypervascularity on the posterior and fundal portion of the uterus. There was noted to be a endometriosis lesion on the posterior wall of the uterus. Attention was then turned to the right adnexa where there is noted to be significant amount of scarring on the right fallopian tube with several small cysts present. There was only a small streak portion of the ovary left on the right side from previous surgery. Attention was then turned to the left adnexa where the tube was noted to be overall normal but there were some adhesions to the round ligament and uterus. The ovary was visualized and there was noted be an endometrioma measuring approximately 3-4 cm within the ovary. In the posterior cul-de-sac there was noted to be moderate amount of bloody fluid. Attention was then turned to the right lower quadrant and the skin was injected with 0.5% Marcaine and an incision was made with a scalpel. A 5 mm trocar was inserted under direct visualization without difficulty. Attention was then turned to the left lower quadrant of the abdomen and again the skin was injected with 0.5% Marcaine and incision was made with scalpel. A 5 mm trocar was inserted under direct visualization without difficulty. Attention was then turned to the previously noted omental adhesion to the anterior abdominal wall and the right side of the abdomen. This is taken down using the Harmonic scalpel. Chin was then turned to the pelvis. The left ovary was then grasped using an atraumatic grasper and a Harmonic scalpel was used to remove the endometrioma. The 5 mm suprapubic port was removed and a 12 mm port was inserted to allow further removal of the ovarian endometrioma. A Endo Catch bag was inserted through the suprapubic port and the endometrioma was placed into the bag and this was removed without difficulty. The remaining fluid in the cul-de-sac was suctioned out. Attention was then turned to the left fallopian tube and the adhesions to the uterus and round ligament were taken down using a harmonic scalpel and blunt traction. The endometriosis lesions on the anterior abdominal wall were then fulgurated using the Harmonic scalpel. The endometriosis lesion on the posterior uterus was fulgurated using the Harmonic scalpel. Attention was then turned to the uterosacral ligament attachments were as noted be small amount of adhesion and endometriosis lesion present. A small portion of the adhesion was incised using the Harmonic scalpel. Due to the proximity of the ureter was felt that it would not be safe to fulgurate the endometriosis lesion in this site. The procedure was complete at this time. A Ethan-Eugenio needle was then used to close the suprapubic port using 0 Vicryl. The remaining lateral ports were removed under direct visualization and no bleeding was noted. The gas was removed from the abdomen. The umbilical port was removed without difficulty. The incision sites were then closed using interrupted sutures of 4- 0 Monocryl. Dermabond was placed over the incisions. The patient was awoken and taken to the PACU for recovery. Plan is for patient to be discharged home if she is able to get good pain control, tolerating a regular diet, ambulate and void without difficulty. Instrument, sponge, lap and needle count were correct at the end of case. Patient left hospital at 1930 01/27/2017 without beeing seen by me. - Discharge Data Discharge Date: 01/27/17 Discharge Disposition: Home, Self-Care 01 Condition: Good - Discharge Diagnosis/Problem(s) (1) Endometrioma SNOMED Code(s): 516781543 ICD Code: N80.9 - ENDOMETRIOSIS, UNSPECIFIED Status: Acute Current Visit : Yes (2) Endometriosis SNOMED Code(s): 730606559 ICD Code: N80.9 - ENDOMETRIOSIS, UNSPECIFIED Status: Acute Current Visit : No (3) Pelvic pain SNOMED Code(s): 41644314 ICD Code: R10.2 - PELVIC AND PERINEAL PAIN Status: Acute Current Visit: No - Patient Summary/Data Operative Procedure(s) Performed: Laparoscopic ovarian cystectomy of left endometrioma and lysis of adhesions Complications: none Consults: none Hospital Course: uneventful except left on her on volition - Patient Instructions Diet: Regular Diet as Tolerated Activity: As Tolerated Driving: Do Not Drive (While on narcotic medications) Showering/Bathing: May Shower Wound/Incision Care: Keep Operative Site/Wound Site Clean and Dry Notify Provider of: Fever, Increased Pain, Swelling and Redness, Drainage, Nausea and/or Vomiting - Discharge Plan Prescriptions/Med Rec: Ibuprofen 600 mg PO Q6H PRN #60 tablet PRN Reason: Pain tiZANidine [Zanaflex] 8 mg PO BEDTIME PRN #60 tablet PRN Reason: muscle spasms Home Medications: Home Meds Cranberry Ext/C/L. Sporogenes [Azo Cranberry] 1 tab PO DAILY 01/05/17 [History] valACYclovir [Valtrex] 1,000 mg PO DAILY 01/05/17 [History] Ibuprofen [IJD: Ibuprofen] 600 mg PO Q6H PRN tablet 01/12/17 [Rx] Letrozole [Femara] 2.5 mg PO DAILY 01/12/17 [History] Ondansetron [Zofran ODT] 1 tab PO ASDIRECTED PRN #30 tab.dis 01/12/17 [Rx] Ibuprofen 600 mg PO Q6H PRN #60 tablet 01/27/17 [Rx] tiZANidine [Zanaflex] 8 mg PO BEDTIME PRN #60 tablet 01/27/17 [Rx] Acetaminophen/oxyCODONE [Percocet 325-5 MG] 1 tab PO Q6H PRN tablet 01/28/17 [ Rx] Patient Handouts: Endometriosis Referrals: Lalit Patel MD [Physician] - 02/09/17 10:00 am (In 2-3 weeks) - Discharge Summary/Plan Comment DC Time >30 min.: No - Patient Data Vitals - Most Recent: Last Vital Signs Temp 98.2 F 01/27/17 16:45 Pulse 90 01/27/17 16:45 Resp 22 H 01/27/17 16:45 BP 107/70 01/27/17 16:45 Pulse Ox 98 01/27/17 16:45 Weight - Most Recent: 137 lb 1.6 oz I&O - Last 24 hours: Intake & Output 01/27/17 01/28/17 01/28/17 22:59 06:59 14:59 Intake Total 2000 Output Total 100 Balance 1900 Med Orders - Current: Current Medications Docusate Sodium (Colace) 100 mg PO BID NGUYEN Famotidine (Pepcid) 20 mg PO BID NGUYEN Hydromorphone HCl (Dilaudid) 0.2 mg IVPUSH Q2H PRN PRN Reason: Pain (severe 7-10) Last Admin: 01/27/17 17:06 Dose: 0.2 mg Hydroxyzine HCl (Vistaril) 25 mg IM Q4HR PRN PRN Reason: Pain Lactated Ringer's (Ringers, Lactated) 1,000 mls @ 125 mls/hr IV ASDIRECTED NGUYEN Morphine Sulfate (Morphine) 5 mg IM Q4HR PRN PRN Reason: Pain Ondansetron HCl (Zofran Odt) 4 mg PO Q6H PRN PRN Reason: Nausea/Vomiting Last Admin: 01/27/17 17:36 Dose: 4 mg Oxycodone/Acetaminophen (Percocet 325-5 Mg) 2 tab PO Q6H PRN PRN Reason: Pain (moderate 4-6) Last Admin: 01/27/17 17:44 Dose: 2 tab Cranberry Ext/C/L. (Sporogenes.) 0 each PO DAILY NGUYEN Letrozole 2.5mg. 0 each PO DAILY [facility] Sodium Chloride (Saline Flush) 10 ml FLUSH ASDIRECTED PRN PRN Reason: Keep Vein Open Discontinued Medications Bupivacaine HCl (Marcaine 0.5%) Confirm Administered Dose 30 ml .ROUTE .STK-MED ONE Stop: 01/27/17 09:49 Last Admin: 01/27/17 10:58 Dose: 8 ml Dexamethasone (Dexamethasone) Confirm Administered Dose 4 mg .ROUTE .STK-MED ONE Stop: 01/27/17 09:59 Diphenhydramine HCl (Benadryl) 25 mg IVPUSH Q6H PRN PRN Reason: pruritis Stop: 01/27/17 18:00 Fentanyl (Sublimaze) Confirm Administered Dose 250 mcg .ROUTE .STK-MED ONE Stop: 01/27/17 09:58 Fentanyl (Sublimaze) Confirm Administered Dose 250 mcg .ROUTE .STK-MED ONE Stop: 01/27/17 12:01 Fentanyl (Sublimaze) 50 mcg IVPUSH Q5M PRN PRN Reason: Pain Stop: 01/27/17 12:38 Last Admin: 01/27/17 14:00 Dose: 50 mcg Glycopyrrolate () Confirm Administered Dose 1 mg .ROUTE .STK-MED ONE Stop: 01/27/17 11:32 Hydromorphone HCl (Dilaudid) Confirm Administered Dose 1 mg .ROUTE .STK-MED ONE Stop: 01/27/17 11:45 Hydromorphone HCl (Dilaudid) 0.5 mg IVPUSH Q15M PRN PRN Reason: severe pain Stop: 01/27/17 12:38 Last Admin: 01/27/17 12:58 Dose: 0.5 mg Lactated Ringer's (Ringers, Lactated) 1,000 mls @ 125 mls/hr IV ASDIRECTED [facility] Stop: 01/27/17 23:00 Last Admin: 01/27/17 18:33 Dose: 125 mls/hr Lidocaine HCl (Xylocaine-Mpf 1%) Confirm Administered Dose 4 mls @ as directed .ROUTE .STK-MED ONE Stop: 01/27/17 09:59 Lactated Ringer's (Ringers, Lactated) Confirm Administered Dose 1,000 mls @ as directed .ROUTE .STK-MED ONE Stop: 01/27/17 11:32 Ketorolac Tromethamine (Toradol) 15 mg IVPUSH Q6H [facility] Stop: 01/28/17 10:16 Last Admin: 01/27/17 16:39 Dose: 15 mg Lidocaine/Sodium Bicarbonate (Buffered Lidocaine 1% In Ns 8.4%) 0.25 ml IV ONETIME PRN PRN Reason: Prior to IV Start Stop: 01/27/17 18:00 Last Admin: 01/27/17 09:59 Dose: 0.25 ml Midazolam HCl (Versed 1 Mg/Ml) Confirm Administered Dose 2 mg .ROUTE .STK-MED ONE Stop: 01/27/17 09:58 Ondansetron HCl (Zofran) Confirm Administered Dose 4 mg .ROUTE .STK-MED ONE Stop: 01/27/17 09:59 Ondansetron HCl (Zofran) 4 mg IVPUSH ONETIME PRN PRN Reason: Nausea/Vomiting Stop: 01/27/17 18:00 Last Admin: 01/27/17 14:00 Dose: 4 mg Propofol (Diprivan 20 Ml) Confirm Administered Dose 200 mg .ROUTE .STK-MED ONE Stop: 01/27/17 09:58 Propofol (Diprivan 20 Ml) Confirm Administered Dose 200 mg .ROUTE .STK-MED ONE Stop: 01/27/17 10:29 Propofol (Diprivan 20 Ml) Confirm Administered Dose 200 mg .ROUTE .STK-MED ONE Stop: 01/27/17 10:29 Propofol (Diprivan 20 Ml) Confirm Administered Dose 200 mg .ROUTE .STK-MED ONE Stop: 01/27/17 10:30 Propofol (Diprivan 20 Ml) Confirm Administered Dose 400 mg .ROUTE .STK-MED ONE Stop: 01/27/17 11:38 Propofol (Diprivan 20 Ml) Confirm Administered Dose 200 mg .ROUTE .STK-MED ONE Stop: 01/27/17 12:17 Rocuronium [place] (Zemuron) Confirm Administered Dose 50 mg .ROUTE .STK-MED ONE Stop: 01/27/17 09:59 Rocuronium [place] (Zemuron) Confirm Administered Dose 50 mg .ROUTE .STK-MED ONE Stop: 01/27/17 12:04 Scopolamine (Transderm-Scop) 1.5 mg TRDERM ONETIME ONE Stop: 01/27/17 10:11 Last Admin: 01/27/17 10:08 Dose: 1.5 mg Sodium Chloride (Saline Flush) 10 ml FLUSH ASDIRECTED PRN PRN Reason: Keep Vein Open Stop: 01/27/17 18:00 *Q Meaningful Use (DIS) - VTE *Q VTE Criteria *Q: - Stroke *Q Stroke Criteria *Q: - AMI *Q AMI Criteria *Q:
== END | disposition home or self-care (01) ==
LOC: JD.SDS 09:28
PROVIDERS: ATTEND Obstetrics & Gynecology
DX: N83.202 Unspecified ovarian cyst, left side (principal); N85.8 Other specified noninflammatory disorders of uterus; F41.9 Anxiety disorder, unspecified; F32.9 Major depressive disorder, single episode, unspecified; Z88.1 Allergy status to other antibiotic agents; Z88.8 Allergy status to other drugs, medicaments and biological substances; Z79.899 Other long term (current) drug therapy; Z90.49 Acquired absence of other specified parts of digestive tract; Z98.890 Other specified postprocedural states; Z90.721 Acquired absence of ovaries, unilateral; Z90.6 Acquired absence of other parts of urinary tract
CPT/HCPCS: 36415; 58662; 80048; 81025; 85025; A9270; J1100; J1170; J1885; J2250; J2405; J3010; J7120; 00840; J2704

== ENCOUNTER 2017-03-10 12:26 | Emergency (ER) | payer BC ==
[2017-03-10 12:37] VITALS: BP 125/83
[2017-03-10] MEDS ORDERED: Ondansetron 4 MG/2 ML SDV IVPUSH ONE ×2 (13:07→14:35)
[2017-03-10] MEDS ORDERED: Ketorolac 30 MG/ML SDV IVPUSH ONE (13:07)
[2017-03-10] MEDS ORDERED: Sodium Chloride 0.9% 10 ML Syringe FLUSH PRN (13:07)
--- NOTE | 2017-03-10 13:58 | EDM.PDOC ---
ED HPI GENERAL MEDICAL PROBLEM - General Chief Complaint: Abdominal Pain Stated Complaint: ABDOMINAL PAIN Time Seen by Provider: 03/10/17 12:55 Source of Information: Reports: Patient, Old Records History Limitations: Reports: No Limitations - History of Present Illness INITIAL COMMENTS - FREE TEXT/NARRATIVE: 26 year old female presents for evaluation and treatment of lower abdominal pain. Patient reports she had a left sided cysectomy [address] Patel. Reports he has had continued pain and vaginal bleeding since the surgery. Reports she is currently using 4-5 heavy pads a day for the vaginal bleeding. Reports associated nausea and vomiting. Reports she vomited 2 times today. Patient has seen Dr. Patel for follow-up since the surgery. Per the clinic note discussed switching to a combination OCP but the patient wanted to continue on the progesterone only medication. Patient also reports right sided ear pain. States she has been seeing Dr. Isaac for a sinus infections and migraines. Diagnosed with an effusion and placed on flonase. No fevers or cough. Patient reports she has a history of endometrosis and fibromyalgia. Currently on progestin and famara for the endometrosis. Has an appointment with pain management for 03-20-17. Review of records shows she was supposed to be seen by pain management on 02-28-17. Patient reports she was unable to make it to that appointment so she had to reschedule. Past surgical includes recent cysectomy, appendectomy and ex laps for endometrosis. lower abdominal/upper groin area Pain Score (Numeric/FACES): 8 - Related Data Allergies Allergy/AdvReac Type Severity Reaction Status Date / Time amitriptyline [From Elavil] Allergy Rash Verified 03/10/17 12:37 levofloxacin [From Levaquin] Allergy Hives Verified 03/10/17 12:37 metaxalone [From Skelaxin] Allergy Cannot Verified 03/10/17 12:37 Remember metoclopramide [From Reglan] AdvReac Paralysis Verified 03/10/17 12:37 Home Meds: Home Meds Cranberry Ext/C/L. Sporogenes [Azo Cranberry] 1 tab PO DAILY 01/05/17 [History] valACYclovir [Valtrex] 1,000 mg PO DAILY 01/05/17 [History] Ibuprofen [IJD: Ibuprofen] 600 mg PO Q6H PRN tablet 09/28/17 [Rx] Letrozole [Femara] 2.5 mg PO DAILY 01/12/17 [History] Ondansetron [Zofran ODT] 1 tab PO ASDIRECTED PRN #30 tab.dis 01/12/17 [Rx] tiZANidine [Zanaflex] 8 mg PO BEDTIME PRN #60 tablet 01/27/17 [Rx] Acetaminophen/oxyCODONE [Percocet 325-5 MG] 1 tab PO Q6H PRN tablet 01/28/17 [ Rx] Norethindrone-E.estradiol-Iron [Microgestin Fe 1.5-30 Tab] 1 each PO DAILY #30 tablet 03/10/17 [Rx] Progesterone,Micronized [Progesterone] 5 mg PO DAILY 03/10/17 [History] Past Medical History HEENT History: Reports: None Cardiovascular History: Reports: None Respiratory History: Reports: None Gastrointestinal History: Reports: None Genitourinary History: Reports: UTI, Recurrent Other Genitourinary History: previously admitted for ovarian cyst [employer] History: Reports: Endometriosis Other OB/BYN History: takes valtrex daily Musculoskeletal History: Reports: Fibromyalgia Neurological History: Reports: None Psychiatric History: Reports: Anxiety, Depression, Other (See Below) Other Psychiatric History: from symptoms of endometriosis and hormones Endocrine/Metabolic History: Reports: None Hematologic History: Reports: Anemia Immunologic History: Reports: None Oncologic (Cancer) History: Reports: None Dermatologic History: Reports: None - Infectious Disease History Infectious Disease History: Reports: None - Past Surgical History Head Surgeries/Procedures: Reports: None HEENT Surgical History: Reports: Tonsillectomy Cardiovascular Surgical History: Reports: None Respiratory Surgical History: Reports: None GI Surgical History: Reports: Appendectomy Other GI Surgeries/Procedures: entermetrosis surgeries. Female Surgical History: Reports: Other (See Below) Other Female Surgeries/Procedures: endometriosis, cysts removed and drained Endocrine Surgical History: Reports: None Neurological Surgical History: Reports: None Musculoskeletal Surgical History: Reports: None Oncologic Surgical History: Reports: None Dermatological Surgical History: Reports: None Social & Family History - Family History Family Medical History: Noncontributory OBGYN: Reports: Other (See Below) Other OBGYN Family History: mother also has cysts Musculoskeletal: Reports: Fibromyalgia Other Musculoskeletal Family History: mother Neurological: Reports: Seizure Other Neurological Family History: mother - Tobacco Use Smoking Status *Q: Never Smoker Second Hand Smoke Exposure: No - Caffeine Use Caffeine Use: Reports: Soda - Alcohol Use Days Per Week of Alcohol Use: 1 Number of Drinks Per Day: 1 Total Drinks Per Week: 1 - Recreational Drug Use Recreational Drug Use: No ED ROS GENERAL - Review of Systems Review Of Systems: See Below Constitutional: Denies: Fever HEENT: Reports: Ear Pain (right) Respiratory: Denies: Cough GI/Abdominal: Reports: Abdominal Pain (bilateral lower abdomen), Nausea, Vomiting : Reports: Other (vaginal bleeding 4-5 large pads per day) ED EXAM, GI/ABD - Physical Exam Exam: See Below Exam Limited By: No Limitations General Appearance: Alert, WD/WN, No Apparent Distress Ears: Normal External Exam, Normal Canal, Hearing Grossly Normal, Normal TMs Nose: Normal Inspection Throat/Mouth: Normal Inspection, Normal Voice, No Airway Compromise Respiratory/Chest: No Respiratory Distress, Lungs Clear, Normal Breath Sounds Cardiovascular: Normal Peripheral Pulses, Regular Rate, Rhythm, No Murmur GI/Abdominal Exam: Normal Bowel Sounds, Soft, Tender (reports pain in the lower abdomen, bilteral sides and the suprapubic area). No: Guarding, Rigid, Rebound Neurological: Alert, Oriented, Normal Cognition Psychiatric: Normal Affect, Normal Mood Skin Exam: Warm, Dry, Normal Color Course - Vital Signs Last Recorded V/S: Last Vital Signs Temp 37.0 C 03/10/17 12:33 Pulse 96 03/10/17 12:33 Resp 18 03/10/17 12:33 BP 125/83 03/10/17 12:33 Pulse Ox 100 03/10/17 12:33 - Orders/Labs/Meds Labs: Laboratory Tests 03/10/17 03/10/17 03/10/17 Range/Units 13:15 13:15 13:15 WBC 5.43 (3.98-10.04) K/mm3 RBC 4.86 (3.98-5.22) M/mm3 Hgb 14.2 (11.2-15.7) gm/L Hct 43.0 (34.1-44.9) % MCV 88.5 (79.4-94.8) fl MCH 29.2 (25.6-32.2) pg MCHC 33.0 (32.2-35.5) g/dl RDW Std Deviation 41.6 (36.4-46.3) fL Plt Count 226 (182-369) K/mm3 MPV 11.2 (9.4-12.3) fl Neutrophils % (Manual) 53 (40-60) % Band Neutrophils % 0 (0-10) % Lymphocytes % (Manual) 34 (20-40) % Atypical Lymphs % 4 % Monocytes % (Manual) 6 (2-10) % Eosinophils % (Manual) 3 (0.7-5.8) % Basophils % (Manual) 0 L (0.1-1.2) Platelet Estimate Adequate Plt Morphology Comment Normal RBC Morph Comment Normal Sodium 143 (136-145) mEq/L Potassium 4.2 (3.5-5.1) mEq/L Chloride 107 (98-107) mEq/L Carbon Dioxide 25 (21-32) mEq/L Anion Gap 15.2 H (5-15) BUN 13 (7-18) mg/dL Creatinine 0.9 (0.55-1.02) mg/dL Est Cr Clr Drug Dosing 79.04 mL/min Estimated GFR (MDRD) > 60 (>60) mL/min BUN/Creatinine Ratio 14.4 (14-18) Glucose 86 (74-106) mg/dL Calcium 9.4 (8.5-10.1) mg/dL Total Bilirubin 0.3 (0.2-1.0) mg/dL AST 14 L (15-37) U/L ALT 23 (14-59) U/L Alkaline Phosphatase 103 (46-116) U/L C-Reactive Protein < 0.2 (<1.0) mg/dL Total Protein 7.3 (6.4-8.2) g/dl Albumin 3.8 (3.4-5.0) g/dl Globulin 3.5 gm/dL Albumin/Globulin Ratio 1.1 (1-2) HCG, Qual Negative (NEGATIVE) Meds: Medications Discontinued Medications Generic Name Dose Route Start Last Admin Trade Name Freq PRN Reason Stop Dose Admin Ketorolac Tromethamine 30 mg 03/10/17 13:07 03/10/17 13:28 Toradol IVPUSH 03/10/17 13:08 30 mg ONETIME ONE Administration Ondansetron HCl 4 mg 03/10/17 13:07 03/10/17 13:27 Zofran IVPUSH 03/10/17 13:08 4 mg ONETIME ONE Administration Ondansetron HCl 4 mg 03/10/17 14:35 03/10/17 15:11 Zofran IVPUSH 03/10/17 14:36 4 mg ONETIME ONE Administration Oxycodone/Acetaminophen 1 tab 03/10/17 14:10 03/10/17 14:30 Percocet 325-5 Mg PO 03/10/17 14:11 1 tab ONETIME ONE Administration Promethazine HCl 25 mg 03/10/17 14:10 03/10/17 14:37 Phenergan IM 03/10/17 14:11 Not Given ONETIME ONE Sodium Chloride 10 ml 03/10/17 13:07 03/10/17 13:30 Saline Flush FLUSH 10 ml ASDIRECTED PRN Administration Keep Vein Open - Re-Assessments/Exams Free Text/Narrative Re-Assessment/Exam: 03/10/17 16:23 Labs returned. Patient reported no pain relief with toradol. I will give her 1 PO percocet. Case discussed with Dr. Patel. Unsure exact cause of her pain. Recommended switching to combination OCP 30 estrogen/1.5 progesterone. He will follow-up with her in clinic. I informed the patient of my conversation with Dr. Patel and her lab studies. Given this is a chronic issue, we do not do pain management in the ER She will need to follow-up with her PCP or Dr. Patel as planned. Encouraged to go to her pain management appointment and avoid rescheduling. Discharge instructions as documented. Departure - Departure Time of Disposition: 16:24 Disposition: Home, Self-Care 01 Condition: Good Clinical Impression: Endometriosis, Pelvic pain - Discharge Information Prescriptions: Norethindrone-E.estradiol-Iron [Microgestin Fe 1.5-30 Tab] 1 each PO DAILY #30 tablet Instructions: Pelvic Pain, Female, [id number], Endometriosis Referrals: Kate Isaac MD [Primary Care Provider] - Lalit Patel MD [Physician] - Forms: ED Department Discharge Additional Instructions: Stop your current OCP. Start Microgestin 1 tablet daily. Continue with your pain medication you have at home for current pain management. Recommend using heat for additional pain relief. Follow-up with your pain management appointment as planned. Follow-up with Dr. Isaac and Dr. Patel as needed for further pain management and for refills of your OCP. Please return to the ER if your symptoms change or worsen.
[2017-03-10] MEDS ORDERED: Acetaminophen/oxyCODONE 325-5 MG Tab PO ONE (14:10)
[2017-03-10] MEDS ORDERED: Promethazine 25 MG/ML SDV IM ONE (14:10)
== END 2017-03-10 16:50 | disposition home or self-care (01) ==
LOC: JD.ED 12:26
DX: N80.9 Endometriosis, unspecified (principal); Z88.1 Allergy status to other antibiotic agents; Z88.8 Allergy status to other drugs, medicaments and biological substances; Z79.899 Other long term (current) drug therapy
CPT/HCPCS: 36415; 80053; 84703; 85025; 86140; 96374; 96375; 99284; A9270; J1885; J2405; J7050

== ENCOUNTER 2017-05-21 00:36 | Inpatient (IN) | payer BC ==
[2017-05-21] MEDS ORDERED: HYDROmorphone 1 MG/ML Syringe IVPUSH ONE (01:01)
[2017-05-21] MEDS ORDERED: Ondansetron 4 MG/2 ML SDV IVPUSH ONE ×2 (01:01→03:56)
--- NOTE | 2017-05-21 01:07 | EDM.PDOC ---
ED HPI GENERAL MEDICAL PROBLEM - General Chief Complaint: Abdominal Pain Stated Complaint: VOMMITING STOMACH AND BACK PAIN Time Seen by Provider: 05/21/17 00:55 Source of Information: Reports: Patient, Family History Limitations: Reports: No Limitations - History of Present Illness INITIAL COMMENTS - FREE TEXT/NARRATIVE: This is a 26-year-old female. She has not been feeling very good for the entire week. She went to see her doctor and was diagnosed with urinary tract infection and she was tested for H. pylori though those results are not back. She was placed on Cipro since . Apparently today she had onset of nausea and vomiting multiple times and severe retching so she comes to the ER for evaluation. Her Zofran and Phenergan and she could not keep down. She is not able to keep down any fluids due to her stomach upset. She also started her period and she has endometriosis so she is having a lot of soreness and pain in the lower abdomen as well. She states she's been running an intermittent fever up to 101 throughout the week and I think some early this morning. She has been taking Tylenol and ibuprofen for the fever. She denies any significant cough no nasal congestion no sore throat other than from vomiting. She's had no cough or congestion. Patient states the last time she had a pyelonephritis that didn't show when her blood work was about 2-3 years ago. Abdomen Pain Score (Numeric/FACES): 7 - Related Data Allergies Allergy/AdvReac Type Severity Reaction Status Date / Time amitriptyline [From Elavil] Allergy Rash Verified 05/21/17 00:46 levofloxacin [From Levaquin] Allergy Hives Verified 05/21/17 00:46 metaxalone [From Skelaxin] Allergy Cannot Verified 05/21/17 00:46 Remember metoclopramide [From Reglan] AdvReac Paralysis Verified 05/21/17 00:46 Home Meds: Home Meds valACYclovir [Valtrex] 1,000 mg PO DAILY 01/05/17 [History] Ibuprofen [IJD: Ibuprofen] 600 mg PO Q6H PRN tablet 01/12/17 [Rx] Ondansetron [Zofran ODT] 1 tab PO ASDIRECTED PRN #30 tab.dis 01/12/17 [Rx] tiZANidine [Zanaflex] 8 mg PO BEDTIME PRN #60 tablet 01/27/17 [Rx] Gabapentin [Neurontin] 100 mg PO BEDTIME 05/21/17 [History] Past Medical History HEENT History: Reports: None Cardiovascular History: Reports: None Respiratory History: Reports: None Gastrointestinal History: Reports: None Genitourinary History: Reports: UTI, Recurrent Other Genitourinary History: previously admitted for ovarian cyst [employer] History: Reports: Endometriosis Other OB/BYN History: takes valtrex daily Musculoskeletal History: Reports: Fibromyalgia Neurological History: Reports: None Psychiatric History: Reports: Anxiety, Depression, Other (See Below) Other Psychiatric History: from symptoms of endometriosis and hormones Endocrine/Metabolic History: Reports: None Hematologic History: Reports: Anemia Immunologic History: Reports: None Oncologic (Cancer) History: Reports: None Dermatologic History: Reports: None - Infectious Disease History Infectious Disease History: Reports: None - Past Surgical History Head Surgeries/Procedures: Reports: None HEENT Surgical History: Reports: Tonsillectomy Cardiovascular Surgical History: Reports: None Respiratory Surgical History: Reports: None GI Surgical History: Reports: Appendectomy Other GI Surgeries/Procedures: entermetrosis surgeries. Female Surgical History: Reports: Other (See Below) Other Female Surgeries/Procedures: endometriosis, cysts removed and drained Endocrine Surgical History: Reports: None Neurological Surgical History: Reports: None Musculoskeletal Surgical History: Reports: None Oncologic Surgical History: Reports: None Dermatological Surgical History: Reports: None Social & Family History - Family History Family Medical History: Noncontributory OBGYN: Reports: Other (See Below) Other OBGYN Family History: mother also has cysts Musculoskeletal: Reports: Fibromyalgia Other Musculoskeletal Family History: mother Neurological: Reports: Seizure Other Neurological Family History: mother - Tobacco Use Smoking Status *Q: Never Smoker Second Hand Smoke Exposure: No - Caffeine Use Caffeine Use: Reports: None - Alcohol Use Days Per Week of Alcohol Use: 1 Number of Drinks Per Day: 1 Total Drinks Per Week: 1 - Recreational Drug Use Recreational Drug Use: No ED ROS GENERAL - Review of Systems Review Of Systems: See Below Constitutional: Reports: Fever, Chills, Malaise HEENT: Denies: Ear Pain, Rhinitis, Throat Pain, Throat Swelling Respiratory: Denies: Shortness of Breath, Cough Cardiovascular: Denies: Chest Pain Endocrine: Reports: No Symptoms GI/Abdominal: Reports: Abdominal Pain, Diarrhea, Nausea, Vomiting : Reports: Dysuria Musculoskeletal: Reports: Other (Aching all over) Skin: Reports: Other (Noted to have a rash on her face that ended being petechiae from her vomiting) Neurological: Reports: No Symptoms Psychiatric: Reports: No Symptoms ED EXAM, GI/ABD - Physical Exam Exam: See Below Exam Limited By: No Limitations General Appearance: Alert, WD/WN, No Apparent Distress Eyes: Bilateral: Normal Appearance Ears: Normal External Exam, Normal Canal, Normal TMs Throat/Mouth: Normal Inspection, Normal Lips, Normal Voice, No Airway Compromise Head: Normocephalic, Other (Around her eyes and on her forehead she has petechiae from her vomiting today) Neck: Supple Respiratory/Chest: No Respiratory Distress, Lungs Clear, Normal Breath Sounds Cardiovascular: Regular Rate, Rhythm, No Murmur GI/Abdominal Exam: Soft, Other (Generalized soreness all over her abdomen but there is no guarding no distention no rebound, she is more tender in the lower abdomen over the bladder area and pelvis area again no rebound noted) Back Exam: Normal Inspection, Full Range of Motion Extremities: Normal Inspection, Normal Range of Motion Neurological: Alert, Oriented Psychiatric: Normal Affect, Normal Mood Skin Exam: Warm, Dry, Other (Skin turgor is good) Course - Vital Signs Last Recorded V/S: Last Vital Signs Temp 96.7 F 05/21/17 00:42 Pulse 101 H 05/21/17 00:42 Resp 18 05/21/17 00:42 BP 124/94 H 05/21/17 00:42 Pulse Ox 97 05/21/17 00:42 - Orders/Labs/Meds Orders: Active Orders 24 hr Category Date Time Status Abdomen Pelvis w Cont [CT] Stat Exams 05/21/17 05:22 Taken CULTURE BLOOD [BC] Stat Lab 05/21/17 06:50 Ordered CULTURE BLOOD [BC] Stat Lab 05/21/17 06:50 Ordered LACTIC ACID [CHEM] Stat Lab 05/21/17 06:51 Ordered Promethazine [Phenergan] 25 mg Med 05/21/17 06:44 Active Sodium Chloride 0.9% [Normal Saline] 50 ml IV ONETIME Sodium Chloride 0.9% [Normal Saline] 1,000 ml Med 05/21/17 01:15 Active IV ASDIRECTED Sodium Chloride 0.9% [Saline Flush] Med 05/21/17 05:49 Active 10 ml FLUSH ONETIME PRN Blood Culture x2 Reflex Set [OM.PC] Stat Oth 05/21/17 06:50 Ordered Medication Orders Sodium Chloride (Normal Saline) 1,000 mls @ 1,000 mls/hr IV ASDIRECTED NGUYEN Last Infusion: 05/21/17 02:29 Dose: 999 mls/hr Infusion: 05/21/17 01:59 Dose: 400 mls/hr Admin: 05/21/17 01:19 Dose: 1,000 mls/hr Promethazine HCl 25 mg/ Sodium (Chloride) 51 mls @ 100 mls/hr IV ONETIME ONE Stop: 05/21/17 07:14 Last Admin: 05/21/17 06:54 Dose: 100 mls/hr Sodium Chloride (Saline Flush) 10 ml FLUSH ONETIME PRN PRN Reason: IV FLUSH Last Admin: 05/21/17 05:59 Dose: 10 ml Labs: Laboratory Tests 05/21/17 05/21/17 05/21/17 Range/Units 01:22 01:22 01:22 WBC 9.99 (3.98-10.04) K/mm3 RBC 4.78 (3.98-5.22) M/mm3 Hgb 13.7 (11.2-15.7) gm/L Hct 41.4 (34.1-44.9) % MCV 86.6 (79.4-94.8) fl MCH 28.7 (25.6-32.2) pg MCHC 33.1 (32.2-35.5) g/dl RDW Std Deviation 39.6 (36.4-46.3) fL Plt Count 196 (182-369) K/mm3 MPV 11.0 (9.4-12.3) fl Neut % (Auto) 72.4 H (34.0-71.1) % Lymph % (Auto) 19.6 (19.3-51.7) % [place] % (Auto) 6.7 (4.7-12.5) % Eos % (Auto) 0.9 (0.7-5.8) Baso % (Auto) 0.3 (0.1-1.2) % Neut # (Auto) 7.23 H (1.56-6.13) K/mm3 Lymph # (Auto) 1.96 (1.18-3.74) K/mm3 [place] # (Auto) 0.67 H (0.24-0.36) K/mm3 Eos # (Auto) 0.09 (0.04-0.36) K/mm3 Baso # (Auto) 0.03 (0.01-0.08) K/mm3 Sodium 144 (136-145) mEq/L Potassium 3.7 (3.5-5.1) mEq/L Chloride 109 H (98-107) mEq/L Carbon Dioxide 24 (21-32) mEq/L Anion Gap 14.7 (5-15) BUN 18 (7-18) mg/dL Creatinine 1.3 H (0.55-1.02) mg/dL Est Cr Clr Drug Dosing 47.52 mL/min Estimated GFR (MDRD) 50 (>60) mL/min BUN/Creatinine Ratio 13.8 L (14-18) Glucose 108 H (74-106) mg/dL Calcium 9.0 (8.5-10.1) mg/dL Total Bilirubin 0.3 (0.2-1.0) mg/dL AST 13 L (15-37) U/L ALT 20 (14-59) U/L Alkaline Phosphatase 111 (46-116) U/L C-Reactive Protein < 0.2 (<1.0) mg/dL Total Protein 7.3 (6.4-8.2) g/dl Albumin 4.0 (3.4-5.0) g/dl Globulin 3.3 gm/dL Albumin/Globulin Ratio 1.2 (1-2) Lipase 141 (73-393) U/L HCG, Qual (NEGATIVE) Urine Color (Yellow) Urine Appearance (Clear) Urine pH (5.0-8.0) Ur Specific [place] (1.005-1.030) Urine Protein (Negative) Urine Glucose (UA) (Negative) Urine Ketones (Negative) Urine Occult Blood (Negative) Urine Nitrite (Negative) Urine Bilirubin (Negative) Urine Urobilinogen (0.2-1.0) Ur Leukocyte Esterase (Negative) Urine RBC (0-5) /hpf Urine WBC (0-5) /hpf Ur Epithelial Cells (0-5) /hpf Urine Bacteria (FEW) /hpf Hyaline Casts (0-5) /lpf Urine Mucus (FEW) /hpf 05/21/17 05/21/17 Range/Units 01:22 03:45 WBC (3.98-10.04) K/mm3 RBC (3.98-5.22) M/mm3 Hgb (11.2-15.7) gm/L Hct (34.1-44.9) % MCV (79.4-94.8) fl MCH (25.6-32.2) pg MCHC (32.2-35.5) g/dl RDW Std Deviation (36.4-46.3) fL Plt Count (182-369) K/mm3 MPV (9.4-12.3) fl Neut % (Auto) (34.0-71.1) % Lymph % (Auto) (19.3-51.7) % [place] % (Auto) (4.7-12.5) % Eos % (Auto) (0.7-5.8) Baso % (Auto) (0.1-1.2) % Neut # (Auto) (1.56-6.13) K/mm3 Lymph # (Auto) (1.18-3.74) K/mm3 [place] # (Auto) (0.24-0.36) K/mm3 Eos # (Auto) (0.04-0.36) K/mm3 Baso # (Auto) (0.01-0.08) K/mm3 Sodium (136-145) mEq/L Potassium (3.5-5.1) mEq/L Chloride (98-107) mEq/L Carbon Dioxide (21-32) mEq/L Anion Gap (5-15) BUN (7-18) mg/dL Creatinine (0.55-1.02) mg/dL Est Cr Clr Drug Dosing mL/min Estimated GFR (MDRD) (>60) mL/min BUN/Creatinine Ratio (14-18) Glucose (74-106) mg/dL Calcium (8.5-10.1) mg/dL Total Bilirubin (0.2-1.0) mg/dL AST (15-37) U/L ALT (14-59) U/L Alkaline Phosphatase (46-116) U/L C-Reactive Protein (<1.0) mg/dL Total Protein (6.4-8.2) g/dl Albumin (3.4-5.0) g/dl Globulin gm/dL Albumin/Globulin Ratio (1-2) Lipase (73-393) U/L HCG, Qual Negative (NEGATIVE) Urine Color [place] H (Yellow) Urine Appearance Clear (Clear) Urine pH 5.5 (5.0-8.0) Ur Specific [place] 1.020 (1.005-1.030) Urine Protein 2+ H (Negative) Urine Glucose (UA) Trace H (Negative) Urine Ketones Negative (Negative) Urine Occult Blood 2+ H (Negative) Urine Nitrite Positive H (Negative) Urine Bilirubin Negative (Negative) Urine Urobilinogen 1.0 (0.2-1.0) Ur Leukocyte Esterase Negative (Negative) Urine RBC 0-5 (0-5) /hpf Urine WBC 0-5 (0-5) /hpf Ur Epithelial Cells 0-5 (0-5) /hpf Urine Bacteria Rare (FEW) /hpf Hyaline Casts 0-5 (0-5) /lpf Urine Mucus Moderate H (FEW) /hpf Meds: Medications Generic Name Dose Route Start Last Admin Trade Name Freq PRN Reason Stop Dose Admin Sodium Chloride 1,000 mls @ 1,000 mls/hr 05/21/17 01:15 05/21/17 02:29 Normal Saline IV 999 mls/hr ASDIRECTED NGUYEN Infusion Promethazine HCl 25 mg/ Sodium 51 mls @ 100 mls/hr 05/21/17 06:44 05/21/17 06 :54 Chloride IV 05/21/17 07:14 100 mls/hr ONETIME ONE Administration Sodium Chloride 10 ml 05/21/17 05:49 05/21/17 05:59 Saline Flush FLUSH 10 ml ONETIME PRN Administration IV FLUSH Discontinued Medications Generic Name Dose Route Start Last Admin Trade Name Freq PRN Reason Stop Dose Admin Hydromorphone HCl 0.5 mg 05/21/17 01:01 05/21/17 01:19 Dilaudid IVPUSH 05/21/17 01:02 0.5 mg ONETIME ONE Administration Hydromorphone HCl 0.5 mg 05/21/17 03:55 05/21/17 04:09 Dilaudid IVPUSH 05/21/17 03:56 0.5 mg ONETIME ONE Administration Hydromorphone HCl 0.5 mg 05/21/17 06:45 05/21/17 06:55 Dilaudid IVPUSH 05/21/17 06:46 0.5 mg ONETIME ONE Administration Promethazine HCl 25 mg/ Sodium 51 mls @ 100 mls/hr 05/21/17 01:47 05/21/17 01 :59 Chloride IV 05/21/17 02:17 100 mls/hr ONETIME ONE Administration Sodium Chloride 1,000 mls @ 999 mls/hr 05/21/17 02:41 05/21/17 02:45 Normal Saline IV 05/21/17 03:41 999 mls/hr ONETIME ONE Administration Sodium Chloride 1,000 mls @ 1,000 mls/hr 05/21/17 04:30 Normal Saline IV ASDIRECTED NGUYEN Sodium Chloride 1,000 mls @ 1,000 mls/hr 05/21/17 04:45 05/21/17 04:52 Normal Saline IV 05/21/17 05:44 1,000 mls/hr ONETIME ONE Administration Iopamidol 150 ml 05/21/17 05:49 05/21/17 05:59 Isovue-300 (61%) IVPUSH 05/21/17 05:50 110 ml ONETIME ONE Administration Lorazepam 0.5 mg 05/21/17 01:47 05/21/17 01:58 Ativan IVPUSH 05/21/17 01:48 0.5 mg ONETIME ONE Administration Lorazepam 0.5 mg 05/21/17 03:57 05/21/17 04:12 Ativan IVPUSH 05/21/17 03:58 0.5 mg ONETIME ONE Administration Ondansetron HCl 4 mg 05/21/17 01:01 05/21/17 01:19 Zofran IVPUSH 05/21/17 01:02 4 mg ONETIME ONE Administration Ondansetron HCl 4 mg 05/21/17 03:56 05/21/17 04:07 Zofran IVPUSH 05/21/17 03:57 4 mg ONETIME ONE Administration Pantoprazole Sodium 40 mg 05/21/17 02:04 05/21/17 02:16 Protonix Iv IVPUSH 05/21/17 02:05 40 mg ONETIME ONE Administration - Radiology Interpretation Free Text/Narrative:: CT scan of her abdomen and pelvis with contrast shows significant pyelonephritis in both kidneys. - Re-Assessments/Exams Free Text/Narrative Re-Assessment/Exam: 05/21/17 04:35 I spoke to the patient regarding her lab results as well as her urine. My impression at this point is that her urinary tract infection is much better even after 2 days of Cipro and it could very well be the Cipro this causing all her GI distress and stomach pain. I encouraged her to stop the Cipro today and then call her doctor on Monday for reevaluation of her symptoms. Even with the 2 L of fluids given to her. Urine specific gravity was still 1.020 which is somewhat concentrated. I'll provide another liter of fluids for her. 05/21/17 05:39 The patient is upset since we don't have a diagnosis for her. Apparently she been having these symptoms and then looked at for the last 2 years and according to the nurse she is trying to get and hasn't been taking her medications like she normally does to control the symptoms and they're getting worse. When I spoke to the patient she was very upset because she feels doesn't want to go home because she doesn't know what is wrong with her. She tells me that she had pyelonephritis 2-3 years ago and at that time she also had all normal lab levels and she is concerned she might have that now. I offered to do a CT scan with contrast to look for these problems. She asked whether or not Dr. 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 I explained that Dr. Welsh was collision technician and I'm not able to get hold of Dr. Patel. She then agreed to doing the CAT scan. 05/21/17 07:01 I spoke to the patient regarding the CAT scan that shows a significant pyelonephritis in both kidneys. I then spoke with Dr. Ernandez who is willing to put her in the hospital for further evaluation and treatment. He brought up a good question whether or not perhaps for endometriosis has spread to her kidneys giving him the appearance of pyelonephritis which would be a good answer for the reason all of her lab work is normal. He says he will continue the workup in the hospital. In the meantime will provide additional fluids get blood cultures and a lactic acid and also give her a gram of Rocephin IV. Departure - Departure Time of Disposition: 07:06 Disposition: Admitted As Inpatient 67 Condition: Fair Clinical Impression: Pyelonephritis, Endometriosis Abdominal pain Qualifiers: Abdominal location: unspecified location Qualified Code(s): R10.9 - Unspecified abdominal pain Nausea and vomiting Qualifiers: Vomiting type: unspecified Vomiting Intractability: non-intractable Qualified Code(s): R11.2 - Nausea with vomiting, unspecified - Discharge Information Additional Instructions: I spoke to Dr. Ernandez and he'll admit the patient for further evaluation and treatment. - My Orders Last 24 Hours: My Active Orders 05/21/17 01:15 Sodium Chloride 0.9% [Normal Saline] 1,000 ml IV ASDIRECTED 05/21/17 05:22 Abdomen Pelvis w Cont [CT] Stat 05/21/17 05:49 Sodium Chloride 0.9% [Saline Flush] 10 ml FLUSH ONETIME PRN 05/21/17 06:44 Promethazine [Phenergan] 25 mg Sodium Chloride 0.9% [Normal Saline] 50 ml IV ONETIME 05/21/17 06:50 CULTURE BLOOD [BC] Stat CULTURE BLOOD [BC] Stat Blood Culture x2 Reflex Set [OM.PC] Stat 05/21/17 06:51 LACTIC ACID [CHEM] Stat - Assessment/Plan Last 24 Hours: My Active Orders 05/21/17 01:15 Sodium Chloride 0.9% [Normal Saline] 1,000 ml IV ASDIRECTED 05/21/17 05:22 Abdomen Pelvis w Cont [CT] Stat 05/21/17 05:49 Sodium Chloride 0.9% [Saline Flush] 10 ml FLUSH ONETIME PRN 05/21/17 06:44 Promethazine [Phenergan] 25 mg Sodium Chloride 0.9% [Normal Saline] 50 ml IV ONETIME 05/21/17 06:50 CULTURE BLOOD [BC] Stat CULTURE BLOOD [BC] Stat Blood Culture x2 Reflex Set [OM.PC] Stat 05/21/17 06:51 LACTIC ACID [CHEM] Stat
[2017-05-21] MEDS ORDERED: Sodium Chloride 0.9% 1,000 ML IV SCH ×2 (01:15→04:30)
[2017-05-21] MEDS ORDERED: LORazepam 2 MG/ML MDV IVPUSH ONE ×2 (01:47→03:57)
[2017-05-21] MEDS ORDERED: Promethazine 25 MG in Sodium Chloride 0.9% 50 ML IV ONE ×2 (01:47→06:44)
[2017-05-21] MEDS ORDERED: Pantoprazole 40 MG Vial IVPUSH ONE (02:04)
[2017-05-21] MEDS ORDERED: Sodium Chloride 0.9% 1,000 ML IV ONE ×2 (02:41→04:45)
[2017-05-21] MEDS ORDERED: HYDROmorphone 0.5 MG/0.5 ML Syringe IVPUSH ONE ×2 (03:55→06:45)
[2017-05-21] MEDS ORDERED: Sodium Chloride 0.9% 10 ML Syringe FLUSH PRN (05:49)
[2017-05-21] MEDS ORDERED: Iopamidol 612 MG/ML 150 ML Bottle IVPUSH ONE (05:49)
[2017-05-21] MEDS ORDERED: cefTRIAXone 1 GM in Sodium Chloride 0.9% 100 ML IV ONE (07:10)
[2017-05-21] MEDS ORDERED: LORazepam 2 MG/ML MDV IVPUSH PRN (08:01)
[2017-05-21] MEDS ORDERED: Polyethylene Glycol 3350 Powder 17 GM Packet PO PRN (08:01)
[2017-05-21] MEDS ORDERED: Bisacodyl 5 MG Tab PO PRN (08:01)
[2017-05-21] MEDS ORDERED: hydrALAZINE 20 MG/ML SDV IVPUSH PRN (08:01)
[2017-05-21] MEDS ORDERED: LORazepam 2 MG/ML MDV IV PRN (08:01)
[2017-05-21] MEDS ORDERED: Promethazine 12.5 MG in Sodium Chloride 0.9% 50 ML IV PRN (08:01)
[2017-05-21] MEDS ORDERED: Acetaminophen 325 MG Tab PO PRN (08:01)
[2017-05-21] MEDS ORDERED: Docusate Sodium 100 MG Cap PO PRN (08:01)
[2017-05-21] MEDS ORDERED: Albuterol/Ipratropium 3.0-0.5 MG/3 ML Neb Soln NEB PRN (08:01)
--- NOTE | 2017-05-21 08:01 | PCM.HP ---
H&P History of Present Illness - General Date of Service: 05/21/17 Admit Problem/Dx: Admission Diagnosis/Problem Admission Diagnosis/Problem Pyelonephritis Source of Information: Patient, Old Records, Provider, RN Notes Reviewed History Limitations: Reports: No Limitations - History of Present Illness Initial Comments - Free Text/Narative: This is a 26 yo white female with past medical hx/o Fibromylagia, Hx/o Ovarian Cysts, Recurrent UTI, ? Hx/o Herpes on Valtrex, Endometriosis, Anemia likely SUNDAY form Abnormal Menstruation, Anxiety, and Depression who comes in with complaints of not feeling good for the whole week. She was recently diagnosed with UTI and was treated with oral Cipro. Unfortunately, she developed sudden onset of intractable nausea/vomiting multiples times and subjective intermittent fever of up to 101 so she presented to ED for further evaluation. She has been taking Tylenol and NSAIDs but w/o much help. Patient was not able to keep her anti-emetic medications or fluids down. Her presenting illness was complicated by onset of her monthly period and possibly exacerbation of her endometriosis. As a result, she has been having moderate amount of abdominal pain. Patient carries a hx/o pyelonephritis with similar presentation about 2-3 years ago when she was still in [place]. Her initial work up in ED shows a fairly unremarkable CBC. Her chemistry is remarkable for chloride of 109, creatinine of 1.3, glucose of 108, and AST of 13. Her screening is negative and her lactic acid is within normal limits. Her CRP, lipase and alkaline phosphatase are all within normal limits. Her UA is not impressive for UTI but positive for 2+ protein and occult blood. Her abdominal/pelvic CT scan report shows bilateral inflammatory changes in both kidneys. Patient is being admitted for acute bilateral pyelonephritis. She is full code. Abdomen Pain Score (Numeric/FACES): 7 - Related Data Allergies/Adverse Reactions: Allergies Allergy/AdvReac Type Severity Reaction Status Date / Time amitriptyline [From Elavil] Allergy Rash Verified 05/21/17 00:46 levofloxacin [From Levaquin] Allergy Hives Verified 05/21/17 00:46 metaxalone [From Skelaxin] Allergy Cannot Verified 05/21/17 00:46 Remember metoclopramide [From Reglan] AdvReac Paralysis Verified 05/21/17 00:46 Home Medications: Home Meds valACYclovir [Valtrex] 1,000 mg PO DAILY 01/05/17 [History] Ibuprofen [IJD: Ibuprofen] 600 mg PO Q6H PRN tablet 01/12/17 [Rx] Gabapentin [Neurontin] 100 mg PO BEDTIME 05/21/17 [History] Ondansetron [Zofran ODT] 4 mg PO ASDIRECTED PRN 05/21/17 [History] tiZANidine [Zanaflex] 4 mg PO BEDTIME PRN 05/21/17 [History] Past Medical History HEENT History: Reports: None Cardiovascular History: Reports: None Respiratory History: Reports: None Gastrointestinal History: Reports: None Genitourinary History: Reports: UTI, Recurrent Other Genitourinary History: previously admitted for ovarian cyst 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 TECHNOLOGIST History: Reports: Endometriosis Other OB/BYN History: takes valtrex daily Musculoskeletal History: Reports: Fibromyalgia Neurological History: Reports: None Psychiatric History: Reports: Anxiety, Depression, Other (See Below) Other Psychiatric History: from symptoms of endometriosis and hormones Endocrine/Metabolic History: Reports: None Hematologic History: Reports: Anemia Immunologic History: Reports: None Oncologic (Cancer) History: Reports: None Dermatologic History: Reports: None - Infectious Disease History Infectious Disease History: Reports: None - Past Surgical History Head Surgeries/Procedures: Reports: None HEENT Surgical History: Reports: Tonsillectomy Cardiovascular Surgical History: Reports: None Respiratory Surgical History: Reports: None GI Surgical History: Reports: Appendectomy Other GI Surgeries/Procedures: entermetrosis surgeries. Female Surgical History: Reports: Other (See Below) Other Female Surgeries/Procedures: endometriosis, cysts removed and drained Endocrine Surgical History: Reports: None Neurological Surgical History: Reports: None Musculoskeletal Surgical History: Reports: None Oncologic Surgical History: Reports: None Dermatological Surgical History: Reports: None Social & Family History - Family History Family Medical History: Noncontributory OBGYN: Reports: Other (See Below) Other OBGYN Family History: mother also has cysts Musculoskeletal: Reports: Fibromyalgia Other Musculoskeletal Family History: mother Neurological: Reports: Seizure Other Neurological Family History: mother - Tobacco Use Smoking Status *Q: Never Smoker Second Hand Smoke Exposure: No - Caffeine Use Caffeine Use: Reports: None - Alcohol Use Days Per Week of Alcohol Use: 1 Number of Drinks Per Day: 1 Total Drinks Per Week: 1 - Recreational Drug Use Recreational Drug Use: No H&P Review of Systems - Review of Systems: Review Of Systems: See Below General: Reports: Fever, Chills, Malaise. Denies: Weakness, Fatigue HEENT: Reports: No Symptoms Pulmonary: Denies: Shortness of Breath Cardiovascular: Denies: Chest Pain, Palpitations, Dyspnea on Exertion, Edema, Lightheadedness Gastrointestinal: Reports: Abdominal Pain, Diarrhea. Denies: Constipation, Nausea, Vomiting Genitourinary: Reports: Dysuria, Discharge, Abnormal Menses, Flank Pain. Denies : Pain, Urgency, Hematuria Musculoskeletal: Reports: No Symptoms Skin: Denies: Cyanosis, Jaundice, Mottled, Diaphoresis, Pruritis, Rash, Erythema , Wound, Change in Color, Change in Hair/Nails Psychiatric: Denies: Confusion, Depression, Anxiety, Agitation, Hallucinations, Suicidal Ideation, Homicidal Ideation Neurological: Denies: Confusion, Difficulty Walking, Weakness, Gait Disturbance Hematologic/Lymphatic: Reports: No Symptoms Immunologic: Reports: No Symptoms Exam - Exam Exam: See Below - Vital Signs Vital Signs: Last Vital Signs Temp 35.9 C 05/21/17 00:42 Pulse 123 H 05/21/17 05:32 Resp 18 05/21/17 00:42 BP 124/94 H 05/21/17 00:42 Pulse Ox 99 05/21/17 05:32 Weight: 65.771 kg - Exam General: Alert, Oriented, Cooperative HEENT: Conjunctiva Clear, EACs Clear, EOMI, Hearing Intact, Mucosa Moist & [place] , Nares Patent, Normal Nasal Septum, Posterior Pharynx Clear, Pupils Equal, Pupils Reactive, TMs Clear Neck: Supple, Trachea Midline, +2 Carotid Pulse wo Bruit, Full Range of Motion. No: JVD Lungs: Clear to Auscultation, Normal Respiratory Effort Cardiovascular: Regular Rate, Regular Rhythm GI/Abdominal Exam: Normal Bowel Sounds, Soft, Non-Tender, No Organomegaly, No Distention, No Abnormal Bruit, No Mass (Female) Exam: Vaginal Bleeding. No: Vaginal Lesions Rectal (Female) Exam: Deferred Back Exam: Normal Inspection, CVA Tenderness (L), CVA Tenderness (R), Decreased Range of Motion Extremities: Normal Inspection, Normal Range of Motion, Non-Tender, No Pedal Edema, Normal Capillary Refill Peripheral Pulses: 3+: Posterior Tibial (L), Posterior Tibial (R), Dorsalis Pedis (L), Dorsalis Pedis (R) Skin: Warm, Dry, Intact Neuro Extensive - Mental Status: Oriented x3, Normal Cognition, Memory Intact Neuro Extensive - Motor, Sensory, Reflexes: CN II-XII Intact, Normal Gait Psychiatric: Alert, Normal Affect, Anxious. No: Depressed, Agitated, Suicidal Ideation, Homicidal Ideation, Hallucinations, Withdrawal Symptoms - Patient Data Result Diagrams: 05/22/17 06:03 05/22/17 06:03 *Q Meaningful Use (ADM) - VTE *Q VTE Criteria *Q: - Stroke *Q Stroke Criteria *Q: - AMI *Q AMI Criteria *Q: Problem List Initiated/Reviewed/Updated: Yes Orders Last 24hrs: Medication Orders Sodium Chloride (Normal Saline) 1,000 mls @ 1,000 mls/hr IV ASDIRECTED NGUYEN Last Infusion: 05/21/17 02:29 Dose: 999 mls/hr Infusion: 05/21/17 01:59 Dose: 400 mls/hr Admin: 05/21/17 01:19 Dose: 1,000 mls/hr Sodium Chloride (Saline Flush) 10 ml FLUSH ONETIME PRN PRN Reason: IV FLUSH Last Admin: 05/21/17 05:59 Dose: 10 ml Assessment/Plan Comment:: Assessment/Plan: Acute: Bilateral Pyelonephritis - Previous hx/o it the past about 2-3 years ago in [place] - She is not diabetic or carries no auto-immune disease - Risk factor: Recurrent UTI and Endometriosis - Recently treated for UTI on Cipro - CT scan confirms inflammatory changes around both kidneys - Etiology: Infectious vs Inflammatory (Endometriosis spread to her kidneys) - UA is not impressive for UTI (Bacteria, WBC and LE all normal) - Afebrile, w/o Leukocytosis and CRP is normal at < 0.2 - UA and Blood Cx--> if both negative will d/c Abx - Discussed case with Dr. Welsh on-call for [employer]; did not think endometriosis is the etiology but recommended gonorrhea and chlamydia tests - Allergic to Levaquin - Will start IV Rocephin and Meropenem Endometriosis vs Dysmenorrhea - Likely the source of her abdominal/pelvic pain - She is on her monthly period - test negative - PRN pain medications - ED provider attempted to reach Dr. Patel (not lieutenant colonel) but w/o any success - Will consult [employer] in AM--> she prefers to see Dr. Patel Fibromyalagia - Not well controlled - She has been routinely asking dilaudid round the clock for pain control - Cautioned patient on excessive opioid intake - Will resume Neurontin and Zanaflex High Risk for Narcotic Abuse - Risk factors: Fibromyalgia, Anxiety and Depression - Counseled on opioid abuse - She is seeing/going to see a pain specialist in [place] S/p Nausea and Vomiting - Scopolamin Patch x1 - PRN anti-emesis medications Chronic: Fibromyalgia Hx/o Ovarian Cysts Recurrent UTI ? Hx/o Herpes on Valtrex Endometriosis Anemia likely SUNDAY form Heavy Abnormal Menstruation Anxiety Depression Plan: Admit to Med-Surg Routine AM Labs Resume Home Meds Gonorrhea and Chlamydia screening Consult Dr. Patel in AM SW/CM for d/c planning Code status: 1 We performed vaginal swab to obtain specimen for gonorrhea and chlamydia tests. Procedure's risk and benefits were explained to the patient at bedside. I was assisted by nurse Mccartney and a nursing agency manager with her. We were very gentle with the patient and minimized unnecessary discomfort and pain. She received at least 2 mg of IV Dialudid and 1 mg of Ativan prior to the procedure, these on top of what she had received earlier this morning. Throughout the procedure I verbalized what I was doing and explained to her the process. I was concerned that she may not be processing what I was telling her due to sedation and lethargy. However the procedure went well without complications.
[2017-05-21] MEDS ORDERED: Scopolamine 1 MG Transdermal Patch TRDERM ONE (08:37)
[2017-05-21] MEDS: HYDROmorphone 1 MG/ML Syringe IVPUSH PRN ×3 (08:59→18:26)
[2017-05-21] MEDS ORDERED: Potassium Chloride 20 MEQ Tab.ER PO SCH (09:00)
[2017-05-21] MEDS: Potassium Chloride 10 MEQ in Premix Bag 1 BAG IV SCH ×4 (10:54→14:17)
[2017-05-21 12:48] LABS: C. TRACHOMATIS BY PCR NOT DETECTED; N. GONORRHOEAE BY PCR NOT DETECTED
[2017-05-21] MEDS: Ondansetron 4 MG/2 ML SDV IV PRN ×2 (14:19→18:26)
[2017-05-21] MEDS: oxyCODONE 5 MG Tab PO PRN ×2 (14:25→20:38)
[2017-05-21] MEDS: Meropenem 500 MG in Sodium Chloride 0.9% 100 ML IV SCH ×2 (14:35→18:20)
[2017-05-21] MEDS ORDERED: tiZANidine 4 MG Tab PO PRN (17:35)
[2017-05-21] MEDS: Gabapentin 100 MG Cap PO SCH (20:38)
[2017-05-22] MEDS: Meropenem 500 MG in Sodium Chloride 0.9% 100 ML IV SCH ×3 (02:09→18:12)
[2017-05-22] MEDS: oxyCODONE 5 MG Tab PO PRN ×3 (02:10→16:56)
[2017-05-22] MEDS: HYDROmorphone 1 MG/ML Syringe IVPUSH PRN ×4 (02:15→20:54)
[2017-05-22] MEDS: Ibuprofen 600 MG Tab PO PRN ×2 (06:48→16:56)
--- NOTE | 2017-05-22 07:42 | CT ---
CT abdomen and pelvis Technique: Multiple axial images were obtained from above the dome of the diaphragm inferiorly to the pubic symphysis. Intravenous contrast was utilized. No oral contrast has been given. Delayed images were obtained through the bladder. Comparison: Prior abdominal and pelvic CT exam of 01/11/17. Findings: Contrast enhancement of both kidneys is slightly patchy. Mild inflammatory change is noted around both kidneys. Findings are suspicious for pyelonephritis. Visualized lung bases are clear. Liver shows no focal parenchymal abnormality. Spleen appears within normal limits. Adrenal glands show no nodule. Pancreas is within normal limits. Gallbladder contains no calcified gallstones. Aorta shows no aneurysmal dilatation. No retroperitoneal adenopathy or mesenteric abnormalities are seen. No pelvic mass or adenopathy is seen. No free fluid is seen. Delayed images show contrast excretion from both kidneys with contrast noted within the distal ureters and bladder. Bone window settings were reviewed which appear within normal limits for the patient's age. Impression: 1. Findings suspicious for mild pyelonephritis as noted above. 2. No additional abnormality is appreciated on CT study of the abdomen and pelvis. Diagnostic code #3 I agree with preliminary report issued by [facility] ([facility] report finalized on 05/21/17, 7:38 AM)
--- NOTE | 2017-05-22 07:57 | PCM.PN ---
- General Info Date of Service: 05/22/17 Admission Dx/Problem (Free Text): Admission Diagnosis/Problem Admission Diagnosis/Problem Pyelonephritis Subjective Update: Follow Up Functional Status: Reports: Tolerating Diet, Urinating. Denies: Pain Controlled , New Symptoms Pain Score: 6 - Review of Systems General: Denies: Fever, Weakness, Fatigue, Malaise, Chills HEENT: Reports: No Symptoms Pulmonary: Denies: Shortness of Breath Cardiovascular: Denies: Chest Pain Gastrointestinal: Reports: Abdominal Pain, Flatus. Denies: Constipation, Decreased Appetite, Diarrhea, Difficulty Swallowing, Nausea, Vomiting Genitourinary: Reports: Flank Pain Musculoskeletal: Reports: No Symptoms Skin: Denies: Cyanosis, Jaundice, Mottled, Pallor, Diaphoresis, Bruising, Pruritis Neurological: Denies: Confusion, Difficulty Walking, Weakness, Gait Disturbance Psychiatric: Denies: Depression, Anxiety, Agitation, Hallucinations Systems Review Comment:: No significant overnight or acute issues. Her pain level is about the same at 6/ 10. She remains afebrile w/o leukocytosis. Her CRP is somewhat elevated at 4.5 this morning. Her blood culture so far is negative after 24 hrs. She reports no other complaints. - Patient Data Vitals - Most Recent: Last Vital Signs Temp 36.6 C 05/22/17 02:53 Pulse 89 05/22/17 02:53 Resp 18 05/22/17 02:53 BP 80/66 L 05/22/17 02:53 Pulse Ox 95 05/22/17 02:53 Weight - Most Recent: 67.948 kg I&O - Last 24 Hours: Intake & Output 05/21/17 05/22/17 05/22/17 22:59 06:59 14:59 Intake Total 700 100 Balance 700 100 Lab Results Last 24 Hours: Laboratory Results - last 24 hr 05/21/17 05/21/17 05/22/17 Range/Units 07:50 10:45 06:03 WBC 8.34 (3.98-10.04) K/mm3 RBC 4.41 (3.98-5.22) M/mm3 Hgb 12.4 (11.2-15.7) gm/L Hct 39.4 (34.1-44.9) % MCV 89.3 (79.4-94.8) fl MCH 28.1 (25.6-32.2) pg MCHC 31.5 L (32.2-35.5) g/dl RDW Std Deviation 41.6 (36.4-46.3) fL Plt Count 199 (182-369) K/mm3 MPV 10.4 (9.4-12.3) fl Neut % (Auto) 51.8 (34.0-71.1) % Lymph % (Auto) 38.4 (19.3-51.7) % [place] % (Auto) 6.7 (4.7-12.5) % Eos % (Auto) 2.6 (0.7-5.8) Baso % (Auto) 0.4 (0.1-1.2) % Neut # (Auto) 4.32 (1.56-6.13) K/mm3 Lymph # (Auto) 3.20 (1.18-3.74) K/mm3 [place] # (Auto) 0.56 H (0.24-0.36) K/mm3 Eos # (Auto) 0.22 (0.04-0.36) K/mm3 Baso # (Auto) 0.03 (0.01-0.08) K/mm3 Sodium (136-145) mEq/L Potassium (3.5-5.1) mEq/L Chloride (98-107) mEq/L Carbon Dioxide (21-32) mEq/L Anion Gap (5-15) BUN (7-18) mg/dL Creatinine (0.55-1.02) mg/dL Est Cr Clr Drug Dosing mL/min Estimated GFR (MDRD) (>60) mL/min BUN/Creatinine Ratio (14-18) Glucose (74-106) mg/dL Lactic Acid 1.4 (0.4-2.0) mmol/L Calcium (8.5-10.1) mg/dL Magnesium (1.8-2.4) mg/dl C-Reactive Protein (<1.0) mg/dL C trachomatis DNA (PCR) Not detected N gonorrhoeae DNA (PCR) Not detected 05/22/17 Range/Units 06:03 WBC (3.98-10.04) K/mm3 RBC (3.98-5.22) M/mm3 Hgb (11.2-15.7) gm/L Hct (34.1-44.9) % MCV (79.4-94.8) fl MCH (25.6-32.2) pg MCHC (32.2-35.5) g/dl RDW Std Deviation (36.4-46.3) fL Plt Count (182-369) K/mm3 MPV (9.4-12.3) fl Neut % (Auto) (34.0-71.1) % Lymph % (Auto) (19.3-51.7) % [place] % (Auto) (4.7-12.5) % Eos % (Auto) (0.7-5.8) Baso % (Auto) (0.1-1.2) % Neut # (Auto) (1.56-6.13) K/mm3 Lymph # (Auto) (1.18-3.74) K/mm3 [place] # (Auto) (0.24-0.36) K/mm3 Eos # (Auto) (0.04-0.36) K/mm3 Baso # (Auto) (0.01-0.08) K/mm3 Sodium 145 (136-145) mEq/L Potassium 4.4 (3.5-5.1) mEq/L Chloride 109 H (98-107) mEq/L Carbon Dioxide 30 (21-32) mEq/L Anion Gap 10.4 (5-15) BUN 13 (7-18) mg/dL Creatinine 1.2 H (0.55-1.02) mg/dL Est Cr Clr Drug Dosing 51.48 mL/min Estimated GFR (MDRD) 55 (>60) mL/min BUN/Creatinine Ratio 10.8 L (14-18) Glucose 103 (74-106) mg/dL Lactic Acid (0.4-2.0) mmol/L Calcium 8.6 (8.5-10.1) mg/dL Magnesium 2.1 (1.8-2.4) mg/dl C-Reactive Protein 4.5 H* (<1.0) mg/dL C trachomatis DNA (PCR) N gonorrhoeae DNA (PCR) Med Orders - Current: Current Medications Acetaminophen (Tylenol) 650 mg PO Q4H PRN PRN Reason: Pain (Mild 1-3)/fever Albuterol/Ipratropium (Duoneb 3.0-0.5 Mg/3 Ml) 3 ml NEB Q4H PRN PRN Reason: Shortness Of Breath/wheezing Bisacodyl (Dulcolax) 5 mg PO DAILY PRN PRN Reason: Constipation Docusate Sodium (Colace) 100 mg PO BID PRN PRN Reason: Constipation Gabapentin (Neurontin) 100 mg PO BEDTIME [facility] Last Admin: 05/21/17 20:38 Dose: 100 mg Hydralazine HCl (Apresoline) 20 mg IVPUSH Q4H PRN PRN Reason: Hypertension Hydromorphone HCl (Dilaudid) 1 mg IVPUSH Q6H PRN PRN Reason: Pain (severe 7-10) Last Admin: 05/22/17 02:15 Dose: 1 mg Sodium Chloride (Normal Saline) 1,000 mls @ 1,000 mls/hr IV ASDIRECTED [facility] Last Infusion: 05/21/17 02:29 Dose: 999 mls/hr Promethazine HCl 12.5 mg/ (Sodium Chloride) 50.5 mls @ 100 mls/hr IV Q6H PRN PRN Reason: Nausea/Vomiting Meropenem 500 mg/ Sodium (Chloride) 100 mls @ 200 mls/hr IV Q8H [facility] Last Admin: 05/22/17 02:09 Dose: 200 mls/hr Ibuprofen (Motrin) 600 mg PO Q6H PRN PRN Reason: Pain Last Admin: 05/22/17 06:48 Dose: 600 mg Lorazepam (Ativan) 2 mg IVPUSH Q4H PRN PRN Reason: Seizures Lorazepam (Ativan) 1 mg IV Q6H PRN PRN Reason: Anxiety Last Admin: 05/21/17 10:11 Dose: 1 mg Ondansetron HCl (Zofran) 4 mg IV Q4H PRN PRN Reason: Nausea/Vomiting Last Admin: 05/21/17 18:26 Dose: 4 mg Oxycodone HCl (Oxycodone) 5 mg PO Q4H PRN PRN Reason: Pain (moderate 4-6) Last Admin: 05/22/17 06:48 Dose: 5 mg Polyethylene Glycol (Miralax) 17 gm PO DAILY PRN PRN Reason: Constipation Potassium Chloride (Pharmacy To Dose - Potassium Replacement) 1 dose .XX ASDIRECTED [facility] Senna/Docusate Sodium (Senna Plus) 1 tab PO BID PRN PRN Reason: Constipation Sodium Chloride (Saline Flush) 10 ml FLUSH ONETIME PRN PRN Reason: IV FLUSH Last Admin: 05/21/17 05:59 Dose: 10 ml Temazepam (Restoril) 15 mg PO BEDTIME PRN PRN Reason: Sleep Tizanidine HCl (Zanaflex) 4 mg PO BEDTIME PRN PRN Reason: muscle spasms Valacyclovir HCl (Valtrex) 1,000 mg PO DAILY NGUYEN Discontinued Medications Hydromorphone HCl (Dilaudid) 0.5 mg IVPUSH ONETIME ONE Stop: 05/21/17 01:02 Last Admin: 05/21/17 01:19 Dose: 0.5 mg Hydromorphone HCl (Dilaudid) 0.5 mg IVPUSH ONETIME ONE Stop: 05/21/17 03:56 Last Admin: 05/21/17 04:09 Dose: 0.5 mg Hydromorphone HCl (Dilaudid) 0.5 mg IVPUSH ONETIME ONE Stop: 05/21/17 06:46 Last Admin: 05/21/17 06:55 Dose: 0.5 mg Promethazine HCl 25 mg/ Sodium (Chloride) 51 mls @ 100 mls/hr IV ONETIME ONE Stop: 05/21/17 02:17 Last Admin: 05/21/17 01:59 Dose: 100 mls/hr Sodium Chloride (Normal Saline) 1,000 mls @ 999 mls/hr IV ONETIME ONE Stop: 05/21/17 03:41 Last Admin: 05/21/17 02:45 Dose: 999 mls/hr Sodium Chloride (Normal Saline) 1,000 mls @ 1,000 mls/hr IV ASDIRECTED NGUYEN Sodium Chloride (Normal Saline) 1,000 mls @ 1,000 mls/hr IV ONETIME ONE Stop: 05/21/17 05:44 Last Admin: 05/21/17 04:52 Dose: 1,000 mls/hr Promethazine HCl 25 mg/ Sodium (Chloride) 51 mls @ 100 mls/hr IV ONETIME ONE Stop: 05/21/17 07:14 Last Admin: 05/21/17 06:54 Dose: 100 mls/hr Ceftriaxone Sodium 1 gm/ (Sodium Chloride) 100 mls @ 200 mls/hr IV ONETIME ONE Stop: 05/21/17 07:39 Last Admin: 05/21/17 09:03 Dose: 200 mls/hr Potassium Chloride 10 meq/ (Premix) 100 mls @ 100 mls/hr IV Q1H [facility] Stop: 05/21/17 12:59 Last Admin: 05/21/17 14:17 Dose: 100 mls/hr Iopamidol (Isovue-300 (61%)) 150 ml IVPUSH ONETIME ONE Stop: 05/21/17 05:50 Last Admin: 05/21/17 05:59 Dose: 110 ml Lorazepam (Ativan) 0.5 mg IVPUSH ONETIME ONE Stop: 05/21/17 01:48 Last Admin: 05/21/17 01:58 Dose: 0.5 mg Lorazepam (Ativan) 0.5 mg IVPUSH ONETIME ONE Stop: 05/21/17 03:58 Last Admin: 05/21/17 04:12 Dose: 0.5 mg Ondansetron HCl (Zofran) 4 mg IVPUSH ONETIME ONE Stop: 05/21/17 01:02 Last Admin: 05/21/17 01:19 Dose: 4 mg Ondansetron HCl (Zofran) 4 mg IVPUSH ONETIME ONE Stop: 05/21/17 03:57 Last Admin: 05/21/17 04:07 Dose: 4 mg Pantoprazole Sodium (Protonix Iv) 40 mg IVPUSH ONETIME ONE Stop: 05/21/17 02:05 Last Admin: 05/21/17 02:16 Dose: 40 mg Potassium Chloride (Klor-Con M20) 40 meq PO Q4H [facility] Stop: 05/21/17 13:01 Scopolamine (Scopolamine) 1 each TRDERM ONETIME ONE Stop: 05/21/17 08:38 Last Admin: 05/21/17 09:07 Dose: 1 each - Exam General: Alert, Oriented, Cooperative, No Acute Distress HEENT: Pupils Equal, Pupils Reactive, Mucous Membr. Moist/[place] Neck: Supple, Trachea Midline Lungs: Clear to Auscultation, Normal Respiratory Effort Cardiovascular: Regular Rate, Regular Rhythm GI/Abdominal Exam: Normal Bowel Sounds, Soft, No Organomegaly, No Distention, No Abnormal Bruit, No Mass, Pelvis Stable, Tender (mild tenderness on lower abdomen). No: Distended, Guarding, Rigid, Rebound (Female) Exam: Deferred Back Exam: Normal Inspection, CVA Tenderness (L), CVA Tenderness (R), Decreased Range of Motion Extremities: Normal Inspection, Normal Range of Motion, Non-Tender, No Pedal Edema, Normal Capillary Refill Peripheral Pulses: 2+: Dorsalis Pedis (L), Dorsalis Pedis (R) Skin: Warm, Dry, Intact Neurological: No New Focal Deficit Psy/Mental Status: Alert, Normal Affect, Other (Melancholic mood). No: Anxious , Agitated, Suicidal Ideation, Homicidal Ideation, Hallucinations, Withdrawal Symptoms - Problem List Review Problem List Initiated/Reviewed/Updated: Yes - My Orders Last 24 Hours: My Active Orders 05/21/17 08:01 Height and Weight [RC] 04 Oxygen Therapy [RC] PRN Up With Assistance [RC] DAILY Up ad Kandy [RC] DAILY VTE/DVT Education [RC] , Vital Signs [RC] 00,04,08,12,16,20 Acetaminophen [Tylenol] 650 mg PO Q4H PRN Albuterol/Ipratropium [DuoNeb 3.0-0.5 MG/3 ML] 3 ml NEB Q4H PRN Bisacodyl [Dulcolax] 5 mg PO DAILY PRN Docusate Sodium [Colace] 100 mg PO BID PRN Docusate Sodium/Sennosides [Senna Plus] 1 tab PO BID PRN HYDROmorphone [Dilaudid] 1 mg IVPUSH Q6H PRN LORazepam [Ativan] 1 mg IV Q6H PRN LORazepam [Ativan] 2 mg IVPUSH Q4H PRN Ondansetron [Zofran] 4 mg IV Q4H PRN Polyethylene Glycol 3350 [MiraLAX] 17 gm PO DAILY PRN Promethazine [Phenergan] 12.5 mg Sodium Chloride 0.9% [Normal Saline] 50 ml IV Q6H Temazepam [Restoril] 15 mg PO BEDTIME PRN hydrALAZINE [Apresoline] 20 mg IVPUSH Q4H PRN oxyCODONE 5 mg PO Q4H PRN Resuscitation Status Routine 05/21/17 08:02 Antiembolic Devices [RC] 10,22 Intake and Output [RC] QSHIFT Sequential Compression Device [OM.PC] Per Unit Routine 05/21/17 08:03 RT Aerosol Therapy [RC] .PRN 05/21/17 08:15 Potassium Rep Pharmacy to Dose [Pharmacy to Dose - Potassium Replacement] 1 dose .XX ASDIRECTED 05/21/17 10:00 Meropenem [Merrem] 500 mg Sodium Chloride 0.9% [Normal Saline] 100 ml IV Q8H 05/21/17 17:35 tiZANidine [Zanaflex] 4 mg PO BEDTIME PRN 05/21/17 20:56 Ibuprofen [Motrin] 600 mg PO Q6H PRN 05/21/17 21:00 Gabapentin [Neurontin] 100 mg PO BEDTIME 05/21/17 Breakfast Regular Diet [DIET] 05/22/17 07:52 Consult to Physician [CONS] Routine 05/22/17 07:53 Notify Provider Consults [RC] ASDIRECTED 05/22/17 09:00 valACYclovir [Valtrex] 1,000 mg PO DAILY 05/23/17 05:11 BASIC METABOLIC PANEL,BMP [CHEM] AM C-REACTIVE PROTEIN [CHEM] AM CBC WITH AUTO DIFF [HEME] AM MAGNESIUM [CHEM] AM 05/24/17 05:11 BASIC METABOLIC PANEL,BMP [CHEM] AM C-REACTIVE PROTEIN [CHEM] AM CBC WITH AUTO DIFF [HEME] AM MAGNESIUM [CHEM] AM 05/25/17 05:11 BASIC METABOLIC PANEL,BMP [CHEM] AM C-REACTIVE PROTEIN [CHEM] AM CBC WITH AUTO DIFF [HEME] AM MAGNESIUM [CHEM] AM - Plan Plan:: Assessment/Plan: Acute: Bilateral Pyelonephritis - Previous hx/o it the past about 2-3 years ago in [place] - She is not diabetic or carries no auto-immune disease - Risk factor: Recurrent UTI and Endometriosis - Recently treated for UTI on Cipro - CT scan confirms inflammatory changes around both kidneys - Etiology: Infectious vs Inflammatory (Endometriosis spread to her kidneys) - UA is not impressive for UTI (Bacteria, WBC and LE all normal) - Afebrile, w/o Leukocytosis and CRP is normal at < 0.2 - UA and Blood Cx--> if both negative will d/c Abx - Discussed case with Dr. Welsh on-call for [employer]; does not think endometriosis is the etiology but recommended gonorrhea and chlamydia tests - Allergic to Levaquin - Continue Meropenem - Defer concerns about recurrent UTI to Dr. Patel- she may need urology eval after d/c Endometriosis vs Dysmenorrhea - Likely the source of her abdominal/pelvic pain - She is on her monthly period - test negative - PRN pain medications - ED provider attempted to reach Dr. Patel (not small business consultant) but w/o any success - Consulted Dr. Patel- he'll and see her today Fibromyalagia - Not well controlled - Cautioned patient on excessive opioid intake - Conrinue Neurontin and Zanaflex High Risk for Narcotic Abuse - Risk factors: Fibromyalgia, Anxiety and Depression - Counseled on opioid abuse - She is seeing/going to see a pain specialist in [place] Resolved: S/p Nausea and Vomiting - Scopolamin Patch x1 - PRN anti-emesis medications Chronic: Fibromyalgia Hx/o Ovarian Cysts Recurrent UTI ? Hx/o Herpes on Valtrex Endometriosis Anemia likely SUNDAY form Heavy Abnormal Menstruation Anxiety Depression Plan: She is clinically stable Continue current treatment Routine AM Labs Gonorrhea and Chlamydia screening negative Will try to obtain UA culture result from the clinic SW to assess her underlying psychiatric illness; asked to offer services since they are new here in [place] SW/CM for d/c planning Encourage patient to ambulate as tolerated Code status: 1 Additional orders as above
[2017-05-22] MEDS: valACYclovir 1,000 MG Tab PO SCH (11:45)
[2017-05-22] MEDS: Ondansetron 4 MG/2 ML SDV IV PRN (13:02)
--- NOTE | 2017-05-22 14:38 | PCM.CONS ---
H&P History of Present Illness - General Date of Service: 05/22/17 Admit Problem/Dx: Admission Diagnosis/Problem Admission Diagnosis/Problem Pyelonephritis Source of Information: Patient History Limitations: Reports: No Limitations - History of Present Illness Initial Comments - Free Text/Narative: Karla Jewell is a 26 year old G0 female known to me through the clinic for history of endometriosis and had a laparoscopic ovarian cystectomy done in January 2017. Consult was requested secondary to concern that patient's presenting symptoms may be related to history of endometriosis versus possible pyelonephritis versus possible fibromyalgia. Patient reports that she was seen in the clinic by Sharyn Padilla for possible urinary tract infection symptoms last week. She was seen in the emergency department on 05/21/[address] scan that was done that showed inflammation around bilateral kidneys that is consistent with palatal nephritis. However her lab work was not consistent with pyelonephritis. She reports a prior to being seen in the emergency department she had a 1-1.5 week history of not feeling well. She reports that this feeling wound was accompanied by dysuria, urinary frequency and urinary urgency. She also reports that she was having lower pelvic pain and eventually radiated to her back. She reports that she was feeling feverish and chills and one time measured her temperature at home and it was 101 Fahrenheit. Reports that she has been having nausea with some of this pain but denied any vomiting. She reports that this is a pain that felt different from her typical endometriosis pain. She reports that she has recently stopped taking all of her medications for endometriosis including the oral contraceptives and Femara. She was using the Femara and OCPs and they were working well to control her endometriosis pain and she was not having any menstrual bleeding or breakthrough bleeding while on this combination. She reports that on 05/20/2017, she started her menstrual cycle. She reports that she is having some typical menstrual cramps with her menstrual cycle and that this may be playing into some of the pain that she is experiencing. She denies heavy menstrual flow with this menstrual cycle. Onset of Symptoms: Reports: Gradual Symptom Onset Date: 05/11/17 Duration of Symptoms: Reports: Getting Worse Location: Reports: Abdomen, Back Quality: Reports: Ache, Burning, Throbbing Severity: Severe Improves with: Reports: None Worsens with: Reports: Movement Associated Symptoms: Reports: Fever/Chills, Nausea/Vomiting, Other (Dysuria) Abdomen Pain Score (Numeric/FACES): 7 - Related Data Allergies/Adverse Reactions: Allergies Allergy/AdvReac Type Severity Reaction Status Date / Time amitriptyline [From Elavil] Allergy Rash Verified 05/21/17 00:46 levofloxacin [From Levaquin] Allergy Hives Verified 05/21/17 00:46 metaxalone [From Skelaxin] Allergy Cannot Verified 05/21/17 00:46 Remember metoclopramide [From Reglan] AdvReac Paralysis Verified 05/21/17 00:46 Home Medications: Home Meds valACYclovir [Valtrex] 1,000 mg PO DAILY 01/05/17 [History] Ibuprofen [IJD: Ibuprofen] 600 mg PO Q6H PRN tablet 01/12/17 [Rx] Gabapentin [Neurontin] 100 mg PO BEDTIME 05/21/17 [History] Ondansetron [Zofran ODT] 4 mg PO ASDIRECTED PRN 05/21/17 [History] tiZANidine [Zanaflex] 4 mg PO BEDTIME PRN 05/21/17 [History] Past Medical History HEENT History: Reports: None Cardiovascular History: Reports: None Respiratory History: Reports: None Gastrointestinal History: Reports: None Genitourinary History: Reports: UTI, Recurrent Other Genitourinary History: previously admitted for ovarian cyst 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 Other OB/BYN History: takes valtrex daily Musculoskeletal History: Reports: Fibromyalgia Neurological History: Reports: None Psychiatric History: Reports: Anxiety, Depression, Other (See Below) Other Psychiatric History: from symptoms of endometriosis and hormones Endocrine/Metabolic History: Reports: None Hematologic History: Reports: Anemia Immunologic History: Reports: None Oncologic (Cancer) History: Reports: None Dermatologic History: Reports: None - Infectious Disease History Infectious Disease History: Reports: None - Past Surgical History Head Surgeries/Procedures: Reports: None HEENT Surgical History: Reports: Tonsillectomy Cardiovascular Surgical History: Reports: None Respiratory Surgical History: Reports: None GI Surgical History: Reports: Appendectomy Other GI Surgeries/Procedures: entermetrosis surgeries. Female Surgical History: Reports: Other (See Below) Other Female Surgeries/Procedures: endometriosis, cysts removed and drained Endocrine Surgical History: Reports: None Neurological Surgical History: Reports: None Musculoskeletal Surgical History: Reports: None Oncologic Surgical History: Reports: None Dermatological Surgical History: Reports: None Social & Family History - Family History Family Medical History: Noncontributory OBGYN: Reports: Other (See Below) Other OBGYN Family History: mother also has cysts Musculoskeletal: Reports: Fibromyalgia Other Musculoskeletal Family History: mother Neurological: Reports: Seizure Other Neurological Family History: mother - Tobacco Use Smoking Status *Q: Never Smoker Second Hand Smoke Exposure: No - Caffeine Use Caffeine Use: Reports: None - Alcohol Use Days Per Week of Alcohol Use: 1 Number of Drinks Per Day: 1 Total Drinks Per Week: 1 - Recreational Drug Use Recreational Drug Use: No H&P Review of Systems - Review of Systems: Review Of Systems: See Below General: Reports: Fever, Chills, Malaise, Diaphoresis Pulmonary: Denies: Shortness of Breath, Cough Cardiovascular: Denies: Chest Pain Gastrointestinal: Reports: Abdominal Pain, Diarrhea, Nausea, Vomiting. Denies: Constipation Genitourinary: Reports: Dysuria, Frequency, Burning, Pain, Urgency Musculoskeletal: Reports: Back Pain Skin: Denies: Dryness, Rash Exam - Exam Exam: See Below - Vital Signs Vital Signs: Last Vital Signs Temp 36.7 C 05/22/17 13:16 Pulse 72 05/22/17 13:16 Resp 17 05/22/17 13:16 BP 120/85 05/22/17 13:16 Pulse Ox 97 05/22/17 13:16 Weight: 67.948 kg - Exam General: Alert, Oriented HEENT: Conjunctiva Clear, EOMI Neck: Supple, Trachea Midline Lungs: Clear to Auscultation, Normal Respiratory Effort Cardiovascular: Regular Rate, Regular Rhythm GI/Abdominal Exam: Normal Bowel Sounds, Soft, Tender (Mild bilateral lower quadrant tenderness in the lateral aspects of pelvis near the ASIS). No: Distended, Guarding, Rigid, Rebound (Female) Exam: Deferred Back Exam: CVA Tenderness (L), CVA Tenderness (R) Extremities: No Pedal Edema Skin: Warm, Dry, Intact Neuro Extensive - Mental Status: Normal Mood/Affect, Normal Cognition Psychiatric: Alert, Normal Affect, Normal Mood - Patient Data Lab Results Last 24 hrs: Laboratory Results - last 24 hr 05/21/17 05/22/17 05/22/17 Range/Units 10:45 06:03 06:03 WBC 8.34 (3.98-10.04) K/mm3 RBC 4.41 (3.98-5.22) M/mm3 Hgb 12.4 (11.2-15.7) gm/L Hct 39.4 (34.1-44.9) % MCV 89.3 (79.4-94.8) fl MCH 28.1 (25.6-32.2) pg MCHC 31.5 L (32.2-35.5) g/dl RDW Std Deviation 41.6 (36.4-46.3) fL Plt Count 199 (182-369) K/mm3 MPV 10.4 (9.4-12.3) fl Neut % (Auto) 51.8 (34.0-71.1) % Lymph % (Auto) 38.4 (19.3-51.7) % [place] % (Auto) 6.7 (4.7-12.5) % Eos % (Auto) 2.6 (0.7-5.8) Baso % (Auto) 0.4 (0.1-1.2) % Neut # (Auto) 4.32 (1.56-6.13) K/mm3 Lymph # (Auto) 3.20 (1.18-3.74) K/mm3 [place] # (Auto) 0.56 H (0.24-0.36) K/mm3 Eos # (Auto) 0.22 (0.04-0.36) K/mm3 Baso # (Auto) 0.03 (0.01-0.08) K/mm3 Sodium 145 (136-145) mEq/L Potassium 4.4 (3.5-5.1) mEq/L Chloride 109 H (98-107) mEq/L Carbon Dioxide 30 (21-32) mEq/L Anion Gap 10.4 (5-15) BUN 13 (7-18) mg/dL Creatinine 1.2 H (0.55-1.02) mg/dL Est Cr Clr Drug Dosing 51.48 mL/min Estimated GFR (MDRD) 55 (>60) mL/min BUN/Creatinine Ratio 10.8 L (14-18) Glucose 103 (74-106) mg/dL Calcium 8.6 (8.5-10.1) mg/dL Magnesium 2.1 (1.8-2.4) mg/dl C-Reactive Protein 4.5 H* (<1.0) mg/dL C trachomatis DNA (PCR) Not detected N gonorrhoeae DNA (PCR) Not detected Result Diagrams: 05/22/17 06:03 05/22/17 06:03 Jaquan Results Last 24 hrs: Microbiology 05/21/17 07:50 Aerobic Blood Culture - Preliminary Blood - Venous - Lab Draw NO GROWTH AFTER 1 DAY Anaerobic Blood Culture - Preliminary NO GROWTH AFTER 1 DAY Consult PN Assessment/Plan Procedures: Procedures ASSAY OF LIPASE (01/12/17) ASSAY THYROID STIM HORMONE (02/23/17) C-REACTIVE PROTEIN (03/10/17) CHORIONIC GONADOTROPIN ASSAY (03/10/17) CHYLMD TRACH DNA AMP PROBE (01/05/17) COMPLETE CBC W/AUTO DIFF WBC (03/10/17) COMPREHEN METABOLIC PANEL (03/10/17) CT ABD & PELV W/CONTRAST (01/12/17) DXA BONE DENSITY AXIAL (03/02/17) EMERGENCY DEPT VISIT (03/10/17) EMERGENCY DEPT VISIT (01/12/17) HYDRATE IV INFUSION ADD-ON (01/12/17) LAPAROSCOPY EXCISE LESIONS (01/27/17) METABOLIC PANEL TOTAL CA (01/27/17) N.GONORRHOEAE DNA AMP PROB (01/05/17) ROUTINE VENIPUNCTURE (03/10/17) SMEAR WET [place] SALINE/INK (01/05/17) THER/PROPH/DIAG INJ IV PUSH (03/10/17) TRANSVAGINAL US NON-OB (01/12/17) TRICHOMONAS ASSAY W/OPTIC (01/05/17) TX/PRO/DX INJ NEW DRUG ADDON (03/10/17) TX/PRO/DX INJ SAME DRUG TEACHERS ASSISTANT (01/12/17) URINALYSIS AUTO W/SCOPE (01/12/17) URINE TEST (01/27/17) VITAMIN D 25 HYDROXY (02/23/17) (1) Abdominal pain SNOMED Code(s): 45159546 Code(s): R10.9 - UNSPECIFIED ABDOMINAL PAIN Current Visit: Yes Qualifiers: Abdominal location: unspecified location Qualified Code(s): R10.9 - Unspecified abdominal pain (2) Nausea and vomiting SNOMED Code(s): 48282490 Code(s): R11.2 - NAUSEA WITH VOMITING, UNSPECIFIED Current Visit: Yes Qualifiers: Vomiting type: unspecified Vomiting Intractability: non-intractable Qualified Code(s): R11.2 - Nausea with vomiting, unspecified (3) Pyelonephritis SNOMED Code(s): 40295600 Code(s): N12 - TUBULO-INTERSTITIAL NEPHRITIS, NOT SPCF ACUTE OR CHRONIC Current Visit: Yes (4) Pelvic pain SNOMED Code(s): 35483489 Code(s): R10.2 - PELVIC AND PERINEAL PAIN Current Visit: No Problem List Initiated/Reviewed/Updated: Yes Plan: 26 year old with abdominal pain and CVA tenderness with history of E. coli on urine culture from clinic visit on 05/18/2017 and inflammation around kidneys seen on CT scan in the emergency department. * Abdominal pain and back pain most likely associated with pyelonephritis. This is based on urine culture that grew Escherichia coli with 60-70,000 CFU in addition to radiographic findings of inflammation near bilateral kidneys. On exam patient with bilateral CVA tenderness. Patient did have mild lower quadrant pain but minimal compared to previous exams and less likely to be caused by endometriosis. Patient also reports that this pain that she is feeling is different than her typical endometriosis pain. It is also possible that this is due to her history of fibromyalgia, but most likely explanation is pyelonephritis. Would recommend for continued treatment for pyelonephritis per routine care. If there is significant concern that this may be due to endometriosis with a new developing endometrioma you could consider getting a transvaginal ultrasound to check the ovaries for ovarian cysts or endometriomas. Thank you for the consult on this patient. At this time I do not feel that's her complaints are gynecologic in nature and would be best served under continued hospitalist care but I am available as needed for any new problems as they may arise. Lalit Patel M.D. 2:48 PM 05/22/2017 Requesting Provider: Harmony Ernandez Date Consult Requested: 05/22/17 Reason for Consult: Abdominal/back/pelvic pain with history of endometriosis Patient History Reviewed: Yes Admission H&P Reviewed: Yes Consult Result/Summary:: 26 year old with abdominal pain and CVA tenderness with history of E. coli on urine culture from clinic visit on 05/18/2017 and inflammation around kidneys seen on CT scan in the emergency department. * Abdominal pain and back pain most likely associated with pyelonephritis. This is based on urine culture that grew Escherichia coli with 60-70,000 CFU in addition to radiographic findings of inflammation near bilateral kidneys. On exam patient with bilateral CVA tenderness. Patient did have mild lower quadrant pain but minimal compared to previous exams and less likely to be caused by endometriosis. Patient also reports that this pain that she is feeling is different than her typical endometriosis pain. It is also possible that this is due to her history of fibromyalgia, but most likely explanation is pyelonephritis. Would recommend for continued treatment for pyelonephritis per routine care. If there is significant concern that this may be due to endometriosis with a new developing endometrioma you could consider getting a transvaginal ultrasound to check the ovaries for ovarian cysts or endometriomas. Thank you for the consult on this patient. At this time I do not feel that's her complaints are gynecologic in nature and would be best served under continued hospitalist care but I am available as needed for any new problems as they may arise. Notified Requestor: Yes Time Spent (in minutes): 30
[2017-05-22] MEDS: Gabapentin 100 MG Cap PO SCH (20:53)
[2017-05-22] MEDS: Temazepam 15 MG Cap PO PRN (20:53)
[2017-05-22] MEDS ORDERED: LORazepam 2 MG/ML MDV IVPUSH PRN (21:00)
[2017-05-23] MEDS: Ibuprofen 600 MG Tab PO PRN ×3 (00:32→15:51)
[2017-05-23] MEDS: Meropenem 500 MG in Sodium Chloride 0.9% 100 ML IV SCH ×2 (01:57→09:58)
[2017-05-23] MEDS: HYDROmorphone 1 MG/ML Syringe IVPUSH PRN ×3 (05:22→21:11)
--- NOTE | 2017-05-23 07:53 | PCM.PN ---
- General Info Date of Service: 05/23/17 Admission Dx/Problem (Free Text): Admission Diagnosis/Problem Admission Diagnosis/Problem Pyelonephritis Subjective Update: Follow Up Functional Status: Reports: Tolerating Diet, Ambulating, Urinating. Denies: Pain Controlled, New Symptoms Pain Score: 7 - Review of Systems General: Reports: Malaise. Denies: Fever, Weakness, Fatigue, Chills HEENT: Reports: No Symptoms Pulmonary: Denies: Shortness of Breath Cardiovascular: Denies: Chest Pain, Palpitations, Dyspnea on Exertion, Lightheadedness Gastrointestinal: Denies: Abdominal Pain, Nausea, Vomiting Genitourinary: Reports: No Symptoms Musculoskeletal: Reports: Other (tenderness all over) Skin: Reports: No Symptoms Neurological: Denies: Confusion, Seizure, Weakness, Gait Disturbance Psychiatric: Denies: Confusion, Depression, Mood Lability, Anxiety, Agitation, Cravings, Hallucinations, Suicidal Ideation, Homicidal Ideation Systems Review Comment:: No significant overnight or acute issues. She slept pretty good but her pain seems be worse than yesterday. She has no other complaints other than usual diffuse body tenderness. She remains afebrile w/o leukocytosis. - Patient Data Vitals - Most Recent: Last Vital Signs Temp 36.3 C 05/23/17 05:30 Pulse 70 05/23/17 05:30 Resp 14 05/23/17 05:30 BP 109/80 05/23/17 05:30 Pulse Ox 99 05/23/17 05:30 Weight - Most Recent: 67.495 kg I&O - Last 24 Hours: Intake & Output 05/22/17 05/23/17 05/23/17 22:59 06:59 14:59 Intake Total 1080 Output Total 350 650 Balance 730 -650 Lab Results Last 24 Hours: Laboratory Results - last 24 hr 05/23/17 05/23/17 Range/Units 06:30 06:30 WBC 6.17 (3.98-10.04) K/mm3 RBC 3.99 (3.98-5.22) M/mm3 Hgb 11.3 (11.2-15.7) gm/L Hct 35.4 (34.1-44.9) % MCV 88.7 (79.4-94.8) fl MCH 28.3 (25.6-32.2) pg MCHC 31.9 L (32.2-35.5) g/dl RDW Std Deviation 39.9 (36.4-46.3) fL Plt Count 203 (182-369) K/mm3 MPV 10.8 (9.4-12.3) fl Neut % (Auto) 38.2 (34.0-71.1) % Lymph % (Auto) 49.6 (19.3-51.7) % [place] % (Auto) 6.8 (4.7-12.5) % Eos % (Auto) 4.9 (0.7-5.8) Baso % (Auto) 0.5 (0.1-1.2) % Neut # (Auto) 2.36 (1.56-6.13) K/mm3 Lymph # (Auto) 3.06 (1.18-3.74) K/mm3 [place] # (Auto) 0.42 H (0.24-0.36) K/mm3 Eos # (Auto) 0.30 (0.04-0.36) K/mm3 Baso # (Auto) 0.03 (0.01-0.08) K/mm3 Carbon Dioxide 29 (21-32) mEq/L BUN 18 (7-18) mg/dL Creatinine 0.8 (0.55-1.02) mg/dL Est Cr Clr Drug Dosing 77.22 mL/min Estimated GFR (MDRD) > 60 (>60) mL/min BUN/Creatinine Ratio 22.5 H (14-18) Glucose 97 (74-106) mg/dL Calcium 8.5 (8.5-10.1) mg/dL Magnesium 1.9 (1.8-2.4) mg/dl C-Reactive Protein 2.0 H* (<1.0) mg/dL Jaquan Results Last 24 Hours: Microbiology 05/21/17 07:50 Aerobic Blood Culture - Preliminary Blood - Venous - Lab Draw NO GROWTH AFTER 1 DAY Anaerobic Blood Culture - Preliminary NO GROWTH AFTER 1 DAY Med Orders - Current: Current Medications Acetaminophen (Tylenol) 650 mg PO Q4H PRN PRN Reason: Pain (Mild 1-3)/fever Albuterol/Ipratropium (Duoneb 3.0-0.5 Mg/3 Ml) 3 ml NEB Q4H PRN PRN Reason: Shortness Of Breath/wheezing Bisacodyl (Dulcolax) 5 mg PO DAILY PRN PRN Reason: Constipation Docusate Sodium (Colace) 100 mg PO BID PRN PRN Reason: Constipation Gabapentin (Neurontin) 100 mg PO BEDTIME [facility] Last Admin: 05/22/17 20:53 Dose: 100 mg Hydralazine HCl (Apresoline) 20 mg IVPUSH Q4H PRN PRN Reason: Hypertension Hydromorphone HCl (Dilaudid) 1 mg IVPUSH Q6H PRN PRN Reason: Pain (severe 7-10) Last Admin: 05/23/17 05:22 Dose: 1 mg Sodium Chloride (Normal Saline) 1,000 mls @ 1,000 mls/hr IV ASDIRECTED [facility] Last Infusion: 05/21/17 02:29 Dose: 999 mls/hr Promethazine HCl 12.5 mg/ (Sodium Chloride) 50.5 mls @ 100 mls/hr IV Q6H PRN PRN Reason: Nausea/Vomiting Meropenem 500 mg/ Sodium (Chloride) 100 mls @ 200 mls/hr IV Q8H [facility] Last Admin: 05/23/17 01:57 Dose: 200 mls/hr Ibuprofen (Motrin) 600 mg PO Q6H PRN PRN Reason: Pain Last Admin: 05/23/17 00:32 Dose: 600 mg Lorazepam (Ativan) 2 mg IVPUSH Q4H PRN PRN Reason: Seizures Lorazepam (Ativan) 1 mg IV Q6H PRN PRN Reason: Anxiety Last Admin: 05/21/17 10:11 Dose: 1 mg Lorazepam (Ativan) 0.5 mg IVPUSH .ONETIME PRN PRN Reason: Anxiety Last Admin: 05/22/17 20:53 Dose: 0.5 mg Ondansetron HCl (Zofran) 4 mg IV Q4H PRN PRN Reason: Nausea/Vomiting Last Admin: 05/22/17 13:02 Dose: 4 mg Oxycodone HCl (Oxycodone) 5 mg PO Q4H PRN PRN Reason: Pain (moderate 4-6) Last Admin: 05/22/17 16:56 Dose: 5 mg Polyethylene Glycol (Miralax) 17 gm PO DAILY PRN PRN Reason: Constipation Potassium Chloride (Pharmacy To Dose - Potassium Replacement) 1 dose .XX ASDIRECTED [facility] Senna/Docusate Sodium (Senna Plus) 1 tab PO BID PRN PRN Reason: Constipation Sodium Chloride (Saline Flush) 10 ml FLUSH ONETIME PRN PRN Reason: IV FLUSH Last Admin: 05/21/17 05:59 Dose: 10 ml Temazepam (Restoril) 15 mg PO BEDTIME PRN PRN Reason: Sleep Last Admin: 05/22/17 20:53 Dose: 15 mg Tizanidine HCl (Zanaflex) 4 mg PO BEDTIME PRN PRN Reason: muscle spasms Valacyclovir HCl (Valtrex) 1,000 mg PO DAILY NGU[facility] Last Admin: 05/22/17 11:45 Dose: 1,000 mg Discontinued Medications Hydromorphone HCl (Dilaudid) 0.5 mg IVPUSH ONETIME ONE Stop: 05/21/17 01:02 Last Admin: 05/21/17 01:19 Dose: 0.5 mg Hydromorphone HCl (Dilaudid) 0.5 mg IVPUSH ONETIME ONE Stop: 05/21/17 03:56 Last Admin: 05/21/17 04:09 Dose: 0.5 mg Hydromorphone HCl (Dilaudid) 0.5 mg IVPUSH ONETIME ONE Stop: 05/21/17 06:46 Last Admin: 05/21/17 06:55 Dose: 0.5 mg Promethazine HCl 25 mg/ Sodium (Chloride) 51 mls @ 100 mls/hr IV ONETIME ONE Stop: 05/21/17 02:17 Last Admin: 05/21/17 01:59 Dose: 100 mls/hr Sodium Chloride (Normal Saline) 1,000 mls @ 999 mls/hr IV ONETIME ONE Stop: 05/21/17 03:41 Last Admin: 05/21/17 02:45 Dose: 999 mls/hr Sodium Chloride (Normal Saline) 1,000 mls @ 1,000 mls/hr IV ASDIRECTED [facility] Sodium Chloride (Normal Saline) 1,000 mls @ 1,000 mls/hr IV ONETIME ONE Stop: 05/21/17 05:44 Last Admin: 05/21/17 04:52 Dose: 1,000 mls/hr Promethazine HCl 25 mg/ Sodium (Chloride) 51 mls @ 100 mls/hr IV ONETIME ONE Stop: 05/21/17 07:14 Last Admin: 05/21/17 06:54 Dose: 100 mls/hr Ceftriaxone Sodium 1 gm/ (Sodium Chloride) 100 mls @ 200 mls/hr IV ONETIME ONE Stop: 05/21/17 07:39 Last Admin: 05/21/17 09:03 Dose: 200 mls/hr Potassium Chloride 10 meq/ (Premix) 100 mls @ 100 mls/hr IV Q1H [facility] Stop: 05/21/17 12:59 Last Admin: 05/21/17 14:17 Dose: 100 mls/hr Iopamidol (Isovue-300 (61%)) 150 ml IVPUSH ONETIME ONE Stop: 05/21/17 05:50 Last Admin: 05/21/17 05:59 Dose: 110 ml Lorazepam (Ativan) 0.5 mg IVPUSH ONETIME ONE Stop: 05/21/17 01:48 Last Admin: 05/21/17 01:58 Dose: 0.5 mg Lorazepam (Ativan) 0.5 mg IVPUSH ONETIME ONE Stop: 05/21/17 03:58 Last Admin: 05/21/17 04:12 Dose: 0.5 mg Ondansetron HCl (Zofran) 4 mg IVPUSH ONETIME ONE Stop: 05/21/17 01:02 Last Admin: 05/21/17 01:19 Dose: 4 mg Ondansetron HCl (Zofran) 4 mg IVPUSH ONETIME ONE Stop: 05/21/17 03:57 Last Admin: 05/21/17 04:07 Dose: 4 mg Pantoprazole Sodium (Protonix Iv) 40 mg IVPUSH ONETIME ONE Stop: 05/21/17 02:05 Last Admin: 05/21/17 02:16 Dose: 40 mg Potassium Chloride (Klor-Con M20) 40 meq PO Q4H [facility] Stop: 05/21/17 13:01 Scopolamine (Scopolamine) 1 each TRDERM ONETIME ONE Stop: 05/21/17 08:38 Last Admin: 05/21/17 09:07 Dose: 1 each - Exam General: Alert, Oriented, Cooperative, No Acute Distress HEENT: Pupils Equal, Pupils Reactive, EOMI, Mucous Membr. Moist/[place] Neck: Supple, Trachea Midline, No JVD, No Thyromegaly Lungs: Clear to Auscultation, Normal Respiratory Effort Cardiovascular: Regular Rate, Regular Rhythm GI/Abdominal Exam: Normal Bowel Sounds, Soft, Non-Tender, No Organomegaly, No Distention, No Abnormal Bruit, No Mass (Female) Exam: Deferred Back Exam: Normal Inspection, Decreased Range of Motion, Paraspinal Tenderness, Vertebral Tenderness Extremities: Normal Inspection, Normal Range of Motion, Non-Tender, No Pedal Edema, Normal Capillary Refill Skin: Warm, Dry, Intact Neurological: No New Focal Deficit Psy/Mental Status: Alert, Normal Affect, Normal Mood - Problem List Review Problem List Initiated/Reviewed/Updated: Yes - My Orders Last 24 Hours: My Active Orders 05/22/17 07:52 Consult to Physician [CONS] Routine 05/22/17 07:53 Notify Provider Consults [RC] ASDIRECTED 05/22/17 08:03 CULTURE URINE [RM] Routine 05/22/17 08:45 Consult to System Support Analyst [CONS] Routine 05/22/17 09:00 valACYclovir [Valtrex] 1,000 mg PO DAILY 05/22/17 21:00 LORazepam [Ativan] 0.5 mg IVPUSH .ONETIME PRN 05/23/17 06:30 BASIC METABOLIC PANEL,BMP [CHEM] AM C-REACTIVE PROTEIN [CHEM] AM MAGNESIUM [CHEM] AM 05/24/17 05:11 BASIC METABOLIC PANEL,BMP [CHEM] AM C-REACTIVE PROTEIN [CHEM] AM CBC WITH AUTO DIFF [HEME] AM MAGNESIUM [CHEM] AM 05/25/17 05:11 BASIC METABOLIC PANEL,BMP [CHEM] AM C-REACTIVE PROTEIN [CHEM] AM CBC WITH AUTO DIFF [HEME] AM MAGNESIUM [CHEM] AM - Plan Plan:: Assessment/Plan: Acute: Bilateral Pyelonephritis, Improving - Previous hx/o it the past about 2-3 years ago in [place] - She is not diabetic or carries no auto-immune disease - Risk factor: Recurrent UTI and Endometriosis - Recently treated for UTI on Cipro - CT scan confirms inflammatory changes around both kidneys; may repeat test in AM per patient request - Etiology: Infectious vs Inflammatory (Endometriosis spread to her kidneys) - UA is not impressive for UTI (Bacteria, WBC and LE all normal) - Afebrile, w/o Leukocytosis and CRP is normal at < 0.2 - UA and Blood Cx--> if both negative will d/c Abx - Discussed case with Dr. Welsh on-call for Ob[employer]; does not think endometriosis is the etiology but recommended gonorrhea and chlamydia tests - Allergic to Levaquin - Continue Meropenem--> will switch to oral equivalent - Defer concerns about recurrent UTI to Dr. Patel- she may need urology eval after d/c Endometriosis vs Dysmenorrhea, Pain is controlled - Likely the source of her abdominal/pelvic pain - She is on her monthly period - test negative - PRN pain medications - ED provider attempted to reach Dr. Patel (not collision estimator) but w/o any success - Consulted Dr. Patel- recommends no additional testing or treatment Fibromyalagia - Now controlled - Cautioned patient on excessive opioid intake - Conrinue Neurontin and Zanaflex High Risk for Narcotic Abuse - Risk factors: Fibromyalgia, Anxiety and Depression - Counseled on opioid abuse - She is seeing/going to see a pain specialist in [place] Resolved: S/p Nausea and Vomiting - Scopolamin Patch x1 - PRN anti-emesis medications Chronic: Fibromyalgia Hx/o Ovarian Cysts Recurrent UTI ? Hx/o Herpes on Valtrex Endometriosis Anemia likely SUNDAY form Heavy Abnormal Menstruation Anxiety Depression Plan: She remains clinically stable Continue current treatment Routine AM Labs SW/CM for d/c planning Encourage patient to ambulate as tolerated Additional orders as above Code status: 1 Possible d/c in AM
[2017-05-23] MEDS: oxyCODONE 5 MG Tab PO PRN ×3 (08:32→19:42)
[2017-05-23] MEDS: Ondansetron 4 MG/2 ML SDV IV PRN ×2 (09:46→19:08)
[2017-05-23] MEDS: valACYclovir 1,000 MG Tab PO SCH (11:06)
[2017-05-23] MEDS ORDERED: LORazepam 2 MG/ML MDV IVPUSH ONE (20:40)
[2017-05-23] MEDS: Sulfamethoxazole/Trimethoprim 800-160 MG Tab PO SCH (21:10)
[2017-05-23] MEDS: Gabapentin 100 MG Cap PO SCH (21:10)
[2017-05-23] MEDS: Temazepam 15 MG Cap PO PRN (21:10)
[2017-05-24] MEDS: Ibuprofen 600 MG Tab PO PRN (04:24)
[2017-05-24] MEDS: oxyCODONE 5 MG Tab PO PRN (04:27)
[2017-05-24] MEDS: HYDROmorphone 1 MG/ML Syringe IVPUSH PRN ×2 (05:54→06:01)
[2017-05-24] MEDS ORDERED: Iopamidol 612 MG/ML 150 ML Bottle IVPUSH ONE (08:02)
[2017-05-24] MEDS ORDERED: Sodium Chloride 0.9% 10 ML Syringe FLUSH PRN (08:02)
[2017-05-24] MEDS: Sulfamethoxazole/Trimethoprim 800-160 MG Tab PO SCH (08:29)
[2017-05-24] MEDS: valACYclovir 1,000 MG Tab PO SCH (08:31)
--- NOTE | 2017-05-24 08:55 | CT ---
CT abdomen and pelvis Technique: Multiple axial sections were obtained from above the dome of the diaphragm inferiorly through the pubic symphysis. Intravenous contrast was utilized. No oral contrast has been given. Comparison: Prior CT abdomen and pelvis exam of 05/21/17. Findings: Previous study showed inflammatory type change around the kidneys. This shows improvement on current study and has disappeared. Kidneys show symmetric contrast enhancement. No hydronephrosis is seen. Visualized lung bases show nothing acute. Liver shows no focal parenchymal abnormality. Spleen appears within normal limits. Adrenal glands show no nodule. Pancreas shows no discrete abnormality. Gallbladder contains no calcified gallstones. Aorta shows no aneurysmal dilatation. No retroperitoneal adenopathy or mesenteric abnormalities are seen. No pelvic mass or adenopathy is seen. Mild increased stool is seen throughout the colon. Bone window settings were reviewed which appear within normal limits for the patient's age. Impression: 1. Inflammatory change that was seen around both kidneys on prior study has resolved. Kidneys show symmetric enhancement between right and left sides. 2. Mild increased stool within the colon. 3. Other portions of the CT exam of the abdomen and pelvis appears within normal limits. Diagnostic code #2
[2017-05-24] MEDS ORDERED: Magnesium Oxide 400 MG Tab PO ONE (09:00)
--- NOTE | 2017-05-24 09:00 | PCM.DCSUM1 ---
Discharge Summary - Hospital Course Brief History: This is a 26 yo white female with past medical hx/o Fibromylagia , Hx/o Ovarian Cysts, Recurrent UTI, ? Hx/o Herpes on Valtrex, Endometriosis, Anemia likely SUNDAY form Abnormal Menstruation, Anxiety, and Depression who comes in with complaints of not feeling good for the whole week. She was recently diagnosed with UTI and was treated with oral Cipro. Unfortunately, she developed sudden onset of intractable nausea/vomiting multiples times and subjective intermittent fever of up to 101 so she presented to ED for further evaluation. She has been taking Tylenol and NSAIDs but w/o much help. Patient was diagnosed with pyelonephritis on CT scan and was admitted for medical treatment. - Discharge Data Discharge Date: 05/24/17 Discharge Disposition: Home, Self-Care 01 Condition: Good - Discharge Diagnosis/Problem(s) (1) Pyelonephritis SNOMED Code(s): 76236821 ICD Code: N12 - TUBULO-INTERSTITIAL NEPHRITIS, NOT SPCF ACUTE OR CHRONIC Status: Acute (2) Fibromyalgia SNOMED Code(s): 770653810 ICD Code: M79.7 - FIBROMYALGIA Status: Chronic (3) Endometriosis SNOMED Code(s): 259466317 ICD Code: N80.9 - ENDOMETRIOSIS, UNSPECIFIED Status: Chronic - Patient Summary/Data Operative Procedure(s) Performed: None Complications: None Consults: Consultations 05/22/17 07:52 Consult to Physician [CONS] Routine 05/22/17 08:45 Consult to Senior Director Creative Services [CONS] Routine Labs Pending at D/C: None Recommended Follow-up Testing/Procedures: None Planned Operative Procedure(s) after DC: None Hospital Course: Patient was primarily admitted for medical treatment of bilateral pyelonephritis. She carried a hx/o unresolved UTI, partially started on oral Cipro. Patient received supportive care and intravenous antibiotic to improve her symptoms. All her basic work up was unremarkable to include blood culture and UA. However her urine culture from the clinic came back positive for E. coli. Her repeat CT scan, per patient request, showed resolution of bilateral pyeloneprhitis. Her hospital course was complicated by her endometriosis and poorly controlled fibromyalgia. Her pain was however was treated with narcotics (dialudid) which she pretty much received round the clock. Patient was stable upon discharge. She was advised to continue her oral Cipro as initially prescribed outpatient. She was sent home with oral probiotic and short course of oral norco until she sees her PCP on follow up appointment. On the day or discharge, we recommended lifestyle modifications and encouraged her to follow up with her pain specialist in [place] for effective management of her fibromyalgia. The patient expressed understanding and in agreement with the plans as discussed above. All questions were answered. - Patient Instructions Diet: Usual Diet as Tolerated Activity: As Tolerated Driving: May Drive Today Showering/Bathing: May Shower Notify Provider of: Fever, Increased Pain, Swelling and Redness, Nausea and/or Vomiting Other/Special Instructions: - Please resume all home medications. - Continue outpatient Cipro for treatment of your pyelonephritis. - Recommend you take OTC probiotic or yogurt for GI supplement. - Recommend lifestyle modeification to include yoga, exercise, going out with friends or your to improve your overall health. - Follow up with your pain specialist in [place] in 1-2 week. - Call or follow up with your family doctor for any questions or concers after discharge. - Follow up with your doctor by Monday or next week - Discharge Plan Prescriptions/Med Rec: Hydrocodone/Acetaminophen [[place] 5-325 Tablet] 1 each PO Q6H PRN #16 tablet PRN Reason: Other Saccharomyces Boulardii [Florastor] 250 mg PO DAILY #7 cap Home Medications: Home Meds valACYclovir [Valtrex] 1,000 mg PO DAILY 01/05/17 [History] Ibuprofen [IJD: Ibuprofen] 600 mg PO Q6H PRN tablet 01/12/17 [Rx] Gabapentin [Neurontin] 100 mg PO BEDTIME 05/21/17 [History] Ondansetron [Zofran ODT] 4 mg PO ASDIRECTED PRN 05/21/17 [History] tiZANidine [Zanaflex] 4 mg PO BEDTIME PRN 05/21/17 [History] Hydrocodone/Acetaminophen [[place] 5-325 Tablet] 1 each PO Q6H PRN #16 tablet 11/01 [Rx] Saccharomyces Boulardii [Florastor] 250 mg PO DAILY #7 cap 05/24/17 [Rx] Patient Handouts: Pyelonephritis, Adult, Pelvic Pain, Female, [id number], Myofascial Pain Syndrome and Fibromyalgia Referrals: Sharyn Padilla, IT SOFTWARE ENGINEER [Nurse Practitioner] - 05/30/17 10:00 am (Please follow up with Sharyn Padilla on Monday at 1000, please arrive at 0945 for registration.) - Discharge Summary/Plan Comment DC Time >30 min.: Yes (45 mins) Discharge Summary/Plan Comment: Discharge to Home - General Info Date of Service: 05/24/17 Admission Dx/Problem (Free Text: Admission Diagnosis/Problem Admission Diagnosis/Problem Pyelonephritis Subjective Update: Follow Up Functional Status: Reports: Pain Controlled, Tolerating Diet, Ambulating, Urinating. Denies: New Symptoms - Review of Systems General: Denies: Fever, Weakness, Fatigue, Malaise HEENT: Reports: No Symptoms Pulmonary: Denies: Shortness of Breath Cardiovascular: Denies: Chest Pain Gastrointestinal: Denies: Abdominal Pain, Nausea, Vomiting Genitourinary: Reports: No Symptoms Musculoskeletal: Reports: Other (Flank pain) Skin: Denies: Cyanosis, Mottled, Pallor, Diaphoresis, Bruising Neurological: Denies: Confusion, Difficulty Walking, Weakness, Gait Disturbance Psychiatric: Denies: Confusion, Depression, Anxiety, Agitation, Cravings, Hallucinations, Suicidal Ideation, Homicidal Ideation Systems Review Comment: No significant overnight or acute issues. She slept pretty good. Her pain is controlled this morning. She has no new complaints. - Patient Data Vitals - Most Recent: Last Vital Signs Temp 36.6 C 05/24/17 05:53 Pulse 74 05/24/17 05:53 Resp 16 05/24/17 05:53 BP 108/93 H 05/24/17 05:53 Pulse Ox 96 05/24/17 05:53 Weight - Most Recent: 67.495 kg I&O - Last 24 hours: Intake & Output 05/23/17 05/24/17 05/24/17 22:59 06:59 14:59 Intake Total 360 400 Balance 360 400 Lab Results - Last 24 hrs: Laboratory Results - last 24 hr 05/24/17 05/24/17 Range/Units 05:48 05:48 WBC 6.89 (3.98-10.04) K/mm3 RBC 4.29 (3.98-5.22) M/mm3 Hgb 12.3 (11.2-15.7) gm/L Hct 37.2 (34.1-44.9) % MCV 86.7 (79.4-94.8) fl MCH 28.7 (25.6-32.2) pg MCHC 33.1 (32.2-35.5) g/dl RDW Std Deviation 38.2 (36.4-46.3) fL Plt Count 206 (182-369) K/mm3 MPV 11.1 (9.4-12.3) fl Neut % (Auto) 40.8 (34.0-71.1) % Lymph % (Auto) 46.4 (19.3-51.7) % Mcdonald % (Auto) 7.0 (4.7-12.5) % Eos % (Auto) 5.4 (0.7-5.8) Baso % (Auto) 0.4 (0.1-1.2) % Neut # (Auto) 2.81 (1.56-6.13) K/mm3 Lymph # (Auto) 3.20 (1.18-3.74) K/mm3 Mcdonald # (Auto) 0.48 H (0.24-0.36) K/mm3 Eos # (Auto) 0.37 H (0.04-0.36) K/mm3 Baso # (Auto) 0.03 (0.01-0.08) K/mm3 Sodium 141 (136-145) mEq/L Potassium 4.0 (3.5-5.1) mEq/L Chloride 104 (98-107) mEq/L Carbon Dioxide 29 (21-32) mEq/L Anion Gap 12.0 (5-15) BUN 21 H (7-18) mg/dL Creatinine 0.8 (0.55-1.02) mg/dL Est Cr Clr Drug Dosing 77.22 mL/min Estimated GFR (MDRD) > 60 (>60) mL/min BUN/Creatinine Ratio 26.3 H (14-18) Glucose 90 (74-106) mg/dL Calcium 8.9 (8.5-10.1) mg/dL Magnesium 1.7 L (1.8-2.4) mg/dl C-Reactive Protein 1.0 (<1.0) mg/dL NAFISA Results - Last 24 hrs: Microbiology 05/21/17 07:50 Aerobic Blood Culture - Preliminary Blood - Venous - Lab Draw NO GROWTH AFTER 3 DAYS Anaerobic Blood Culture - Preliminary NO GROWTH AFTER 3 DAYS Med Orders - Current: Current Medications Acetaminophen (Tylenol) 650 mg PO Q4H PRN PRN Reason: Pain (Mild 1-3)/fever Albuterol/Ipratropium (Duoneb 3.0-0.5 Mg/3 Ml) 3 ml NEB Q4H PRN PRN Reason: Shortness Of Breath/wheezing Bisacodyl (Dulcolax) 5 mg PO DAILY PRN PRN Reason: Constipation Docusate Sodium (Colace) 100 mg PO BID PRN PRN Reason: Constipation Last Admin: 05/23/17 11:06 Dose: 100 mg Gabapentin (Neurontin) 100 mg PO BEDTIME NGUYEN Last Admin: 05/23/17 21:10 Dose: 100 mg Hydralazine HCl (Apresoline) 20 mg IVPUSH Q4H PRN PRN Reason: Hypertension Hydromorphone HCl (Dilaudid) 1 mg IVPUSH Q6H PRN PRN Reason: Pain (severe 7-10) Last Admin: 05/24/17 06:01 Dose: 1 mg Promethazine HCl 12.5 mg/ (Sodium Chloride) 50.5 mls @ 100 mls/hr IV Q6H PRN PRN Reason: Nausea/Vomiting Ibuprofen (Motrin) 600 mg PO Q6H PRN PRN Reason: Pain Last Admin: 05/24/17 04:24 Dose: 600 mg Lorazepam (Ativan) 2 mg IVPUSH Q4H PRN PRN Reason: Seizures Lorazepam (Ativan) 1 mg IV Q6H PRN PRN Reason: Anxiety Last Admin: 05/21/17 10:11 Dose: 1 mg Magnesium Oxide (Magnesium Oxide) 800 mg PO ONETIME ONE Stop: 05/24/17 09:01 Ondansetron HCl (Zofran) 4 mg IV Q4H PRN PRN Reason: Nausea/Vomiting Last Admin: 05/23/17 19:08 Dose: 4 mg Oxycodone HCl (Oxycodone) 5 mg PO Q4H PRN PRN Reason: Pain (moderate 4-6) Last Admin: 05/24/17 04:27 Dose: 5 mg Polyethylene Glycol (Miralax) 17 gm PO DAILY PRN PRN Reason: Constipation Potassium Chloride (Pharmacy To Dose - Potassium Replacement) 1 dose .XX ASDIRECTED [facility] Senna/Docusate Sodium (Senna Plus) 1 tab PO BID PRN PRN Reason: Constipation Sodium Chloride (Saline Flush) 10 ml FLUSH ONETIME PRN PRN Reason: IV FLUSH Last Admin: 05/21/17 05:59 Dose: 10 ml Sodium Chloride (Saline Flush) 10 ml FLUSH ONETIME PRN PRN Reason: IV FLUSH Stop: 05/24/17 10:00 Last Admin: 05/24/17 08:11 Dose: 10 ml Temazepam (Restoril) 15 mg PO BEDTIME PRN PRN Reason: Sleep Last Admin: 05/23/17 21:10 Dose: 15 mg Tizanidine HCl (Zanaflex) 4 mg PO BEDTIME PRN PRN Reason: muscle spasms Trimethoprim/Sulfamethoxazole (Septra Ds) 1 tab PO BID [facility] Last Admin: 05/24/17 08:29 Dose: 1 tab Valacyclovir HCl (Valtrex) 1,000 mg PO DAILY [facility] Last Admin: 05/24/17 08:31 Dose: 1,000 mg Discontinued Medications Hydromorphone HCl (Dilaudid) 0.5 mg IVPUSH ONETIME ONE Stop: 05/21/17 01:02 Last Admin: 05/21/17 01:19 Dose: 0.5 mg Hydromorphone HCl (Dilaudid) 0.5 mg IVPUSH ONETIME ONE Stop: 05/21/17 03:56 Last Admin: 05/21/17 04:09 Dose: 0.5 mg Hydromorphone HCl (Dilaudid) 0.5 mg IVPUSH ONETIME ONE Stop: 05/21/17 06:46 Last Admin: 05/21/17 06:55 Dose: 0.5 mg Sodium Chloride (Normal Saline) 1,000 mls @ 1,000 mls/hr IV ASDIRECTED [facility] Last Infusion: 05/21/17 02:29 Dose: 999 mls/hr Promethazine HCl 25 mg/ Sodium (Chloride) 51 mls @ 100 mls/hr IV ONETIME ONE Stop: 05/21/17 02:17 Last Admin: 05/21/17 01:59 Dose: 100 mls/hr Sodium Chloride (Normal Saline) 1,000 mls @ 999 mls/hr IV ONETIME ONE Stop: 05/21/17 03:41 Last Admin: 05/21/17 02:45 Dose: 999 mls/hr Sodium Chloride (Normal Saline) 1,000 mls @ 1,000 mls/hr IV ASDIRECTED NGUYEN Sodium Chloride (Normal Saline) 1,000 mls @ 1,000 mls/hr IV ONETIME ONE Stop: 05/21/17 05:44 Last Admin: 05/21/17 04:52 Dose: 1,000 mls/hr Promethazine HCl 25 mg/ Sodium (Chloride) 51 mls @ 100 mls/hr IV ONETIME ONE Stop: 05/21/17 07:14 Last Admin: 05/21/17 06:54 Dose: 100 mls/hr Ceftriaxone Sodium 1 gm/ (Sodium Chloride) 100 mls @ 200 mls/hr IV ONETIME ONE Stop: 05/21/17 07:39 Last Admin: 05/21/17 09:03 Dose: 200 mls/hr Potassium Chloride 10 meq/ (Premix) 100 mls @ 100 mls/hr IV Q1H [facility] Stop: 05/21/17 12:59 Last Admin: 05/21/17 14:17 Dose: 100 mls/hr Meropenem 500 mg/ Sodium (Chloride) 100 mls @ 200 mls/hr IV Q8H [facility] Last Admin: 05/23/17 09:58 Dose: 200 mls/hr Iopamidol (Isovue-300 (61%)) 150 ml IVPUSH ONETIME ONE Stop: 05/21/17 05:50 Last Admin: 05/21/17 05:59 Dose: 110 ml Iopamidol (Isovue-300 (61%)) 150 ml IVPUSH ONETIME ONE Stop: 05/24/17 08:03 Last Admin: 05/24/17 08:11 Dose: 125 ml Lorazepam (Ativan) 0.5 mg IVPUSH ONETIME ONE Stop: 05/21/17 01:48 Last Admin: 05/21/17 01:58 Dose: 0.5 mg Lorazepam (Ativan) 0.5 mg IVPUSH ONETIME ONE Stop: 05/21/17 03:58 Last Admin: 05/21/17 04:12 Dose: 0.5 mg Lorazepam (Ativan) 0.5 mg IVPUSH .ONETIME PRN PRN Reason: Anxiety Last Admin: 05/22/17 20:53 Dose: 0.5 mg Lorazepam (Ativan) 0.5 mg IVPUSH ONETIME ONE Stop: 05/23/17 20:41 Last Admin: 05/23/17 21:10 Dose: 0.5 mg Ondansetron HCl (Zofran) 4 mg IVPUSH ONETIME ONE Stop: 05/21/17 01:02 Last Admin: 05/21/17 01:19 Dose: 4 mg Ondansetron HCl (Zofran) 4 mg IVPUSH ONETIME ONE Stop: 05/21/17 03:57 Last Admin: 05/21/17 04:07 Dose: 4 mg Pantoprazole Sodium (Protonix Iv) 40 mg IVPUSH ONETIME ONE Stop: 05/21/17 02:05 Last Admin: 05/21/17 02:16 Dose: 40 mg Potassium Chloride (Klor-Con M20) 40 meq PO Q4H NGUYEN Stop: 05/21/17 13:01 Scopolamine (Scopolamine) 1 each TRDERM ONETIME ONE Stop: 05/21/17 08:38 Last Admin: 05/21/17 09:07 Dose: 1 each - Exam General: Reports: Alert, Oriented, Cooperative, No Acute Distress HEENT: Reports: Pupils Equal, Pupils Reactive, EOMI, Mucous Membr. Moist/[place] Neck: Reports: Supple, Trachea Midline, No JVD Lungs: Reports: Clear to Auscultation, Normal Respiratory Effort Cardiovascular: Reports: Regular Rate, Regular Rhythm GI/Abdominal Exam: Normal Bowel Sounds, Soft, Non-Tender, No Organomegaly, No Distention, No Abnormal Bruit, No Mass (Female) Exam: Deferred Rectal (Female) Exam: Normal Exam, Normal Rectal Tone Back Exam: Reports: Normal Inspection, Full Range of Motion, CVA Tenderness (L) (mild), CVA Tenderness (R) (mild), Decreased Range of Motion Extremities: Normal Inspection, Normal Range of Motion, Non-Tender, No Pedal Edema, Normal Capillary Refill Skin: Reports: Warm, Dry, Intact Neurological: Reports: No New Focal Deficit Psy/Mental Status: Reports: Alert, Normal Affect, Normal Mood *Q Meaningful Use (DIS) - VTE *Q VTE Criteria *Q: - Stroke *Q Stroke Criteria *Q: - AMI *Q AMI Criteria *Q:
[2017-05-24 09:27] VITALS: BP 109/68
== END 2017-05-24 10:34 | disposition home or self-care (01) | DRG 463 ==
LOC: JD.ED 00:36 → UNDOADMIN 07:10 → JD.MS 07:10 → JD.OB 20:04 → JD.MS 05-23 17:37
PROVIDERS: ADMIT Internal Medicine; ATTEND Internal Medicine
DX: N12 Tubulo-interstitial nephritis, not specified as acute or chronic (principal); B96.20 Unspecified Escherichia coli [E. coli] as the cause of diseases classified elsewhere; E86.0 Dehydration; N80.9 Endometriosis, unspecified; M79.7 Fibromyalgia; F32.9 Major depressive disorder, single episode, unspecified; F41.9 Anxiety disorder, unspecified; D50.9 Iron deficiency anemia, unspecified; Z87.440 Personal history of urinary (tract) infections; Z88.8 Allergy status to other drugs, medicaments and biological substances; Z79.899 Other long term (current) drug therapy
CPT/HCPCS: 36415; 74177; 74177-26; 80048; 80053; 81001; 83605; 83690; 83735; 84703; 85025; 86140; 87040; 87086; 87491; 87591; 96361; 96365; 96375; 96376; 99285; 99285-25; A9270-GY; C9113; J0696; J1170; J2060; J2185; J2405; J2550; J3480; J7030; J7040; J7050; Q9967

== ENCOUNTER 2017-06-20 11:29 | Emergency (ER) | payer BC ==
[2017-06-20 11:40] VITALS: BP 115/79
[2017-06-20] MEDS ORDERED: Ondansetron 4 MG/2 ML SDV IVPUSH ONE ×2 (12:08→14:15)
[2017-06-20] MEDS ORDERED: HYDROmorphone 0.5 MG/0.5 ML SYRINGE IVPUSH ONE ×2 (12:08→14:14)
[2017-06-20] MEDS ORDERED: Sodium Chloride 0.9% 10 ML Syringe FLUSH PRN (12:12)
[2017-06-20] MEDS ORDERED: Sodium Chloride 0.9% 1,000 ML IV SCH (12:15)
--- NOTE | 2017-06-20 12:45 | EDM.PDOC ---
ED HPI GENERAL MEDICAL PROBLEM - General Chief Complaint: Abdominal Pain Stated Complaint: NAUSEA/VOMITING/POSS UTI Time Seen by Provider: 06/20/17 11:54 Source of Information: Reports: Patient History Limitations: Reports: No Limitations - History of Present Illness INITIAL COMMENTS - FREE TEXT/NARRATIVE: Patient is a 26-year-old female who presents ED complaining of nausea vomiting and diarrhea with generalized abdominal discomfort. The diarrhea and nausea has been present for the past week. Vomiting started last night. Continued through the evening. Patient states she's been dry heaving only this morning. She also complains of some mild pain with urination and low back discomfort. She was admitted May 21 discharged the for pyelonephritis. Escherichia coli grew out in the urine. She was sent home on ciprofloxacin to which she is completed the antibiotic therapy. She has a history of recurrent UTIs with unclear reasoning. She has a history of endometriosis as well as ovarian cyst, anxiety, depression, and also herpes. She is on Valtrex daily. Bilateral Flank Pain Score (Numeric/FACES): 5 - Related Data Allergies Allergy/AdvReac Type Severity Reaction Status Date / Time amitriptyline [From Elavil] Allergy Rash Verified 05/21/17 00:46 levofloxacin [From Levaquin] Allergy Hives Verified 05/21/17 00:46 metaxalone [From Skelaxin] Allergy Cannot Verified 05/21/17 00:46 Remember metoclopramide [From Reglan] AdvReac Paralysis Verified 05/21/17 00:46 Home Meds: Home Meds valACYclovir [Valtrex] 1,000 mg PO DAILY 01/05/17 [History] Ibuprofen [IJD: Ibuprofen] 600 mg PO Q6H PRN tablet 01/12/17 [Rx] Gabapentin [Neurontin] 100 mg PO BEDTIME 05/21/17 [History] Ondansetron [Zofran ODT] 4 mg PO ASDIRECTED PRN 05/21/17 [History] tiZANidine [Zanaflex] 4 mg PO BEDTIME PRN 05/21/17 [History] Hydrocodone/Acetaminophen [[place] 5-325 Tablet] 1 each PO Q6H PRN #16 tablet 11/01 [Rx] Saccharomyces Boulardii [Florastor] 250 mg PO DAILY #7 cap 05/24/17 [Rx] Ondansetron [Zofran ODT] 4 mg PO Q6H PRN #12 tab.dis 06/20/17 [Rx] Past Medical History HEENT History: Reports: None Cardiovascular History: Reports: None Respiratory History: Reports: None Gastrointestinal History: Reports: None Genitourinary History: Reports: Pyelonephritis, UTI, Recurrent Other Genitourinary History: previously admitted for ovarian cyst ARTIST'S MODEL History: Reports: Endometriosis Other OB/BYN History: takes valtrex daily Musculoskeletal History: Reports: Fibromyalgia Neurological History: Reports: None Psychiatric History: Reports: Anxiety, Depression, Other (See Below) Other Psychiatric History: from symptoms of endometriosis and hormones Endocrine/Metabolic History: Reports: None Hematologic History: Reports: Anemia Immunologic History: Reports: None Oncologic (Cancer) History: Reports: None Dermatologic History: Reports: None - Infectious Disease History Infectious Disease History: Reports: None - Past Surgical History Head Surgeries/Procedures: Reports: None HEENT Surgical History: Reports: Tonsillectomy Cardiovascular Surgical History: Reports: None Respiratory Surgical History: Reports: None GI Surgical History: Reports: Appendectomy Other GI Surgeries/Procedures: entermetrosis surgeries. Female Surgical History: Reports: Other (See Below) Other Female Surgeries/Procedures: endometriosis, cysts removed and drained Endocrine Surgical History: Reports: None Neurological Surgical History: Reports: None Musculoskeletal Surgical History: Reports: None Oncologic Surgical History: Reports: None Dermatological Surgical History: Reports: None Social & Family History - Family History Family Medical History: Noncontributory OBGYN: Reports: Other (See Below) Other OBGYN Family History: mother also has cysts Musculoskeletal: Reports: Fibromyalgia Other Musculoskeletal Family History: mother Neurological: Reports: Seizure Other Neurological Family History: mother - Tobacco Use Smoking Status *Q: Never Smoker Second Hand Smoke Exposure: No - Caffeine Use Caffeine Use: Reports: Coffee, Energy Drinks, Soda, Tea - Alcohol Use Days Per Week of Alcohol Use: 1 Number of Drinks Per Day: 1 Total Drinks Per Week: 1 - Recreational Drug Use Recreational Drug Use: No ED ROS GENERAL - Review of Systems Review Of Systems: See Below Constitutional: Reports: Malaise, Decreased Appetite. Denies: Fever, Chills Respiratory: Reports: No Symptoms Cardiovascular: Reports: No Symptoms GI/Abdominal: Reports: Abdominal Pain, Diarrhea, Nausea, Vomiting. Denies: Black Stool, Bloody Stool, Hematemesis, Melena : Reports: Dysuria Musculoskeletal: Reports: Back Pain Neurological: Reports: Dizziness (faint) ED EXAM, RENAL/ - Physical Exam Exam: See Below Exam Limited By: No Limitations General Appearance: Alert, WD/WN, No Apparent Distress Ears: Hearing Grossly Normal Nose: Normal Inspection Throat/Mouth: Normal Voice, No Airway Compromise Head: Atraumatic, Normocephalic Neck: Normal Inspection, Supple Respiratory/Chest: No Respiratory Distress, Lungs Clear, Normal Breath Sounds, No Accessory Muscle Use Cardiovascular: Normal Peripheral Pulses, Regular Rate, Rhythm GI/Abdominal: Normal Bowel Sounds, Soft, No Organomegaly, No Distention, Tender (generalized) Back Exam: Normal Inspection. No: CVA Tenderness (L), CVA Tenderness (R) Extremities: Normal Inspection Neurological: Alert, Oriented, CN II-XII Intact, Normal Cognition, No Motor/ Sensory Deficits Psychiatric: Normal Affect, Normal Mood Skin Exam: Warm, Dry, Intact, Normal Color Course - Vital Signs Last Recorded V/S: Last Vital Signs Temp 97.2 F 06/20/17 11:36 Pulse 88 06/20/17 11:36 Resp 20 06/20/17 11:36 BP 115/79 06/20/17 11:36 Pulse Ox 98 06/20/17 11:36 Orthostatic Blood Pressure [ 118/75 Standing] Orthostatic Blood Pressure [ 123/82 Sitting] Orthostatic Blood Pressure [ 118/76 Supine] - Orders/Labs/Meds Orders: Active Orders 24 hr Category Date Time Status Orthostatic Vital Signs [RC] ASDIRECTED Care 06/20/17 12:11 Active Peripheral IV Care [RC] . DIRECTED Care 06/20/17 12:12 Active Abdomen 2V AP Flat Upright [CR] Stat Exams 06/20/17 12:08 Taken DME for Discharge [COMM] Stat Oth 06/20/17 15:50 Ordered Peripheral IV Insertion Adult [OM.PC] Routine Oth 06/20/17 12:12 Ordered Labs: Laboratory Tests 06/20/17 06/20/17 06/20/17 Range/Units 12:35 12:35 13:00 WBC 7.75 (3.98-10.04) K/mm3 RBC 4.83 (3.98-5.22) M/mm3 Hgb 13.7 (11.2-15.7) gm/L Hct 41.8 (34.1-44.9) % MCV 86.5 (79.4-94.8) fl MCH 28.4 (25.6-32.2) pg MCHC 32.8 (32.2-35.5) g/dl RDW Std Deviation 39.8 (36.4-46.3) fL Plt Count 196 (182-369) K/mm3 MPV 11.3 (9.4-12.3) fl Neutrophils % (Manual) 56 (40-60) % Band Neutrophils % 0 (0-10) % Lymphocytes % (Manual) 34 (20-40) % Atypical Lymphs % 0 % Monocytes % (Manual) 5 (2-10) % Eosinophils % (Manual) 4 (0.7-5.8) % Basophils % (Manual) 1 (0.1-1.2) Platelet Estimate Adequate RBC Morph Comment Normal Sodium 140 (136-145) mEq/L Potassium 3.7 (3.5-5.1) mEq/L Chloride 103 (98-107) mEq/L Carbon Dioxide 28 (21-32) mEq/L Anion Gap 12.7 (5-15) BUN 16 (7-18) mg/dL Creatinine 0.6 (0.55-1.02) mg/dL Est Cr Clr Drug Dosing 102.95 mL/min Estimated GFR (MDRD) > 60 (>60) mL/min BUN/Creatinine Ratio 26.7 H (14-18) Glucose 87 (74-106) mg/dL Calcium 9.3 (8.5-10.1) mg/dL Total Bilirubin 0.7 (0.2-1.0) mg/dL AST 15 (15-37) U/L ALT 21 (14-59) U/L Alkaline Phosphatase 105 (46-116) U/L Total Protein 7.7 (6.4-8.2) g/dl Albumin 4.1 (3.4-5.0) g/dl Globulin 3.6 gm/dL Albumin/Globulin Ratio 1.1 (1-2) Lipase 133 (73-393) U/L Urine Color Yellow (Yellow) Urine Appearance Clear (Clear) Urine pH 7.0 (5.0-8.0) Ur Specific [place] 1.020 (1.005-1.030) Urine Protein Trace H (Negative) Urine Glucose (UA) Negative (Negative) Urine Ketones Negative (Negative) Urine Occult Blood Negative (Negative) Urine Nitrite Negative (Negative) Urine Bilirubin Negative (Negative) Urine Urobilinogen 0.2 (0.2-1.0) Ur Leukocyte Esterase Negative (Negative) Urine RBC 0-5 (0-5) /hpf Urine WBC 0-5 (0-5) /hpf Ur Epithelial Cells 0-5 (0-5) /hpf Urine Bacteria Few (FEW) /hpf Urine Mucus Moderate H (FEW) /hpf Urine HCG, Qual (NEGATIVE) 06/20/17 Range/Units 13:00 WBC (3.98-10.04) K/mm3 RBC (3.98-5.22) M/mm3 Hgb (11.2-15.7) gm/L Hct (34.1-44.9) % MCV (79.4-94.8) fl MCH (25.6-32.2) pg MCHC (32.2-35.5) g/dl RDW Std Deviation (36.4-46.3) fL Plt Count (182-369) K/mm3 MPV (9.4-12.3) fl Neutrophils % (Manual) (40-60) % Band Neutrophils % (0-10) % Lymphocytes % (Manual) (20-40) % Atypical Lymphs % % Monocytes % (Manual) (2-10) % Eosinophils % (Manual) (0.7-5.8) % Basophils % (Manual) (0.1-1.2) Platelet Estimate RBC Morph Comment Sodium (136-145) mEq/L Potassium (3.5-5.1) mEq/L Chloride (98-107) mEq/L Carbon Dioxide (21-32) mEq/L Anion Gap (5-15) BUN (7-18) mg/dL Creatinine (0.55-1.02) mg/dL Est Cr Clr Drug Dosing mL/min Estimated GFR (MDRD) (>60) mL/min BUN/Creatinine Ratio (14-18) Glucose (74-106) mg/dL Calcium (8.5-10.1) mg/dL Total Bilirubin (0.2-1.0) mg/dL AST (15-37) U/L ALT (14-59) U/L Alkaline Phosphatase (46-116) U/L Total Protein (6.4-8.2) g/dl Albumin (3.4-5.0) g/dl Globulin gm/dL Albumin/Globulin Ratio (1-2) Lipase (73-393) U/L Urine Color (Yellow) Urine Appearance (Clear) Urine pH (5.0-8.0) Ur Specific [place] (1.005-1.030) Urine Protein (Negative) Urine Glucose (UA) (Negative) Urine Ketones (Negative) Urine Occult Blood (Negative) Urine Nitrite (Negative) Urine Bilirubin (Negative) Urine Urobilinogen (0.2-1.0) Ur Leukocyte Esterase (Negative) Urine RBC (0-5) /hpf Urine WBC (0-5) /hpf Ur Epithelial Cells (0-5) /hpf Urine Bacteria (FEW) /hpf Urine Mucus (FEW) /hpf Urine HCG, Qual Negative (NEGATIVE) Meds: Medications Discontinued Medications Generic Name Dose Route Start Last Admin Trade Name Freq PRN Reason Stop Dose Admin Hydromorphone HCl 0.5 mg 06/20/17 12:08 06/20/17 12:38 Dilaudid IVPUSH 06/20/17 12:09 0.5 mg ONETIME ONE Administration Hydromorphone HCl 0.5 mg 06/20/17 14:14 06/20/17 14:34 Dilaudid IVPUSH 06/20/17 14:15 0.5 mg ONETIME ONE Administration Sodium Chloride 1,000 mls @ 999 mls/hr 06/20/17 12:15 06/20/17 12:35 Normal Saline IV 999 mls/hr ASDIRECTED NGUYEN Administration Sodium Chloride 1,000 mls @ 999 mls/hr 06/20/17 13:50 06/20/17 14:11 Normal Saline IV 06/20/17 14:50 999 mls/hr ONETIME ONE Administration Ondansetron HCl 4 mg 06/20/17 12:08 06/20/17 12:36 Zofran IVPUSH 06/20/17 12:09 4 mg ONETIME ONE Administration Ondansetron HCl 4 mg 06/20/17 14:15 06/20/17 14:37 Zofran IVPUSH 06/20/17 14:16 4 mg ONETIME ONE Administration Sodium Chloride 10 ml 06/20/17 12:12 06/20/17 12:37 Saline Flush FLUSH 10 ml ASDIRECTED PRN Administration Keep Vein Open - Re-Assessments/Exams Free Text/Narrative Re-Assessment/Exam: IV established with normal saline 999 ms. Per hour, Zofran 4 mg IVP, Dilaudid 0.5 mg IVP. Initial lab studies will include CBC, chem 14, hCG, lipase, UA, 2 view flat and upright, stool WBCs, orthostatic vitals, and c-diff. Labs reviewed: CBC and C14 essentially normal. CRP wnl. HCG negative. UA pending. 06/20/17 14:17 Patient complaining of pain and nausea. Ordered dilaudid 0.5mg IVP and zofran 4mg IVP. Secondary of IV fluids ordered. UA was negative for infection. HCG negative. X-ray of the abdomen did not reveal any acute findings. Reviewed with Dr. Padilla. Final interpretation is pending. 06/20/17 15:46 discussed lab results with the patient. Patient has not had any additional nausea or vomiting with treatment. In addition she's had no diarrhea with admission to the ED. She is feeling better. We'll send the patient home with prescription for Zofran. Will have patient provide a stool sample to the lab and follow-up with PCP for results. In addition she'll contact urology to be evaluated for frequent UTIs and multiple episodes of pyelonephritis. Return precautions discussed in great detail. Patient had no additional questions concerns. Departure - Departure Time of Disposition: 15:48 Disposition: Home, Self-Care 01 Condition: Good Clinical Impression: Gastroenteritis Nausea and vomiting Qualifiers: Vomiting type: unspecified Vomiting Intractability: non-intractable Qualified Code(s): R11.2 - Nausea with vomiting, unspecified - Discharge Information Prescriptions: Ondansetron [Zofran ODT] 4 mg PO Q6H PRN #12 tab.dis PRN Reason: Nausea/Vomiting Instructions: Nausea and Vomiting, Adult, [id number], Nausea and Vomiting, Adult Referrals: Kate Isaac MD [Primary Care Provider] - Forms: ED Department Discharge Additional Instructions: Take the Zofran 4 mg one tab every 6 hours as needed for nausea vomiting. Push the fluids including: Gatorade, Powerade, and/or Pedialyte. Refrain from fruit juices, rale fruits/vegetables, dairy products until diarrhea subsides. Provide a stool sample to lab. Follow-up with PCP for results. Contact urologist for further evaluation for frequent UTIs and also pyelonephritis. Return to the ED if you develop any new or worsening symptoms. - My Orders Last 24 Hours: My Active Orders 06/20/17 12:08 Abdomen 2V AP Flat Upright [CR] Stat 06/20/17 12:11 Orthostatic Vital Signs [RC] ASDIRECTED 06/20/17 12:12 Peripheral IV Care [RC] . DIRECTED Peripheral IV Insertion Adult [OM.PC] Routine 06/20/17 15:50 DME for Discharge [COMM] Stat - Assessment/Plan Last 24 Hours: My Active Orders 06/20/17 12:08 Abdomen 2V AP Flat Upright [CR] Stat 06/20/17 12:11 Orthostatic Vital Signs [RC] ASDIRECTED 06/20/17 12:12 Peripheral IV Care [RC] . DIRECTED Peripheral IV Insertion Adult [OM.PC] Routine 06/20/17 15:50 DME for Discharge [COMM] Stat
[2017-06-20] MEDS ORDERED: Sodium Chloride 0.9% 1,000 ML IV ONE (13:50)
--- NOTE | 2017-06-21 07:37 | CR ---
Abdomen: Supine and upright views of the abdomen were obtained. Comparison: No prior abdominal x-ray, previous CT abdomen and pelvis exam of 05/24/17 is available. Findings: Slightly prominent air-filled small bowel is noted within the mid to left abdomen. Bowel gas pattern is otherwise unremarkable. No abnormal calcifications or soft tissue abnormality is seen. Bony structures are within normal limits. Impression: 1. Slightly prominent air-filled small bowel. This may relate to increase swallowed gas or mild ileus/gastroenteritis. 2. Two-view abdominal study is otherwise unremarkable. Diagnostic code #3
== END 2017-06-20 16:18 | disposition home or self-care (01) ==
LOC: JD.ED 11:29
DX: K52.9 Noninfective gastroenteritis and colitis, unspecified (principal); F32.9 Major depressive disorder, single episode, unspecified; Z79.899 Other long term (current) drug therapy; Z88.1 Allergy status to other antibiotic agents; Z88.8 Allergy status to other drugs, medicaments and biological substances
CPT/HCPCS: 36415; 74019; 80053; 81001; 81025; 83690; 85025; 96361; 96374; 96375; 96376; 99284; J1170; J2405; J7040; J7050

== ENCOUNTER 2017-07-23 08:43 | Emergency (ER) | payer BC ==
[2017-07-23 08:52] VITALS: BP 124/62
[2017-07-23] MEDS ORDERED: Ondansetron 4 MG/2 ML SDV IVPUSH ONE (09:02)
[2017-07-23] MEDS ORDERED: Sodium Chloride 0.9% 10 ML Syringe FLUSH PRN (09:02)
[2017-07-23] MEDS ORDERED: Sodium Chloride 0.9% 1,000 ML IV STA (09:02)
[2017-07-23] MEDS ORDERED: HYDROmorphone 0.5 MG/0.5 ML SYRINGE IVPUSH ONE ×2 (09:03→09:39)
--- NOTE | 2017-07-23 09:39 | EDM.PDOC ---
ED HPI GENERAL MEDICAL PROBLEM - General Chief Complaint: Abdominal Pain Stated Complaint: [facility] Time Seen by Provider: 07/23/17 08:58 Source of Information: Reports: Patient, EMS, Family History Limitations: Reports: No Limitations - History of Present Illness INITIAL COMMENTS - FREE TEXT/NARRATIVE: The patient presents by [facility] for abdominal pain, nausea, vomiting and diarrhea. She said this all started this morning at 7am. It woke her up. She has no fever but she does have chills. She has no chest pain or shortness of breath. She has no dysuria. She had some bleeding this morning. She is due for her period. She also has a history of endometrosis. She had an appendectomy. She does not think she was around any one who was sick. She did not eat any bad food. Onset: Sudden Duration: Hour(s): (7am) Location: Reports: Abdomen Quality: Reports: Other (Cramping) Severity: Moderate Improves with: Reports: None Worsens with: Reports: None Context: Reports: Activity (sleeping) Associated Symptoms: Reports: Nausea/Vomiting. Denies: Chest Pain, Cough, Fever /Chills, Headaches, Shortness of Breath Lower Abdominal Pain Score (Numeric/FACES): 7 - Related Data Allergies Allergy/AdvReac Type Severity Reaction Status Date / Time amitriptyline [From Elavil] Allergy Rash Verified 07/23/17 08:52 levofloxacin [From Levaquin] Allergy Hives Verified 07/23/17 08:52 metaxalone [From Skelaxin] Allergy Cannot Verified 07/23/17 08:52 Remember metoclopramide [From Reglan] AdvReac Paralysis Verified 07/23/17 08:52 Home Meds: Home Meds valACYclovir [Valtrex] 1,000 mg PO DAILY 01/05/17 [History] Ibuprofen [IJD: Ibuprofen] 600 mg PO Q6H PRN tablet 01/12/17 [Rx] Gabapentin [Neurontin] 100 mg PO BEDTIME 05/21/17 [History] tiZANidine [Zanaflex] 4 mg PO BEDTIME PRN 05/21/17 [History] Hydrocodone/Acetaminophen [[place] 5-325 Tablet] 1 each PO Q6H PRN #16 tablet 11/01 [Rx] Saccharomyces Boulardii [Florastor] 250 mg PO DAILY #7 cap 05/24/17 [Rx] Ondansetron [Zofran ODT] 4 mg PO Q6H PRN #12 tab.dis 06/20/17 [Rx] Hydrocodone/Acetaminophen [Hydrocodon-Acetaminophen 5-325] 1 - 2 each PO Q6HR PRN #20 tablet 07/23/17 [Rx] Nitrofurantoin Monohyd/M-Cryst [Macrobid 100 mg Capsule] 100 mg PO BID #10 capsule 07/23/17 [Rx] Ondansetron [Zofran ODT] 4 mg PO Q6H PRN #20 tab.dis 07/23/17 [Rx] Past Medical History HEENT History: Reports: None Cardiovascular History: Reports: None Respiratory History: Reports: None Gastrointestinal History: Reports: None Genitourinary History: Reports: Pyelonephritis, UTI, Recurrent Other Genitourinary History: previously admitted for ovarian cyst [employer] History: Reports: Endometriosis Other OB/BYN History: takes valtrex daily Musculoskeletal History: Reports: Fibromyalgia Neurological History: Reports: None Psychiatric History: Reports: Anxiety, Depression, Other (See Below) Other Psychiatric History: from symptoms of endometriosis and hormones Endocrine/Metabolic History: Reports: None Hematologic History: Reports: Anemia Immunologic History: Reports: None Oncologic (Cancer) History: Reports: None Dermatologic History: Reports: None - Infectious Disease History Infectious Disease History: Reports: None - Past Surgical History Head Surgeries/Procedures: Reports: None HEENT Surgical History: Reports: Tonsillectomy Cardiovascular Surgical History: Reports: None Respiratory Surgical History: Reports: None GI Surgical History: Reports: Appendectomy Other GI Surgeries/Procedures: entermetrosis surgeries. Female Surgical History: Reports: Other (See Below) Other Female Surgeries/Procedures: endometriosis, cysts removed and drained Endocrine Surgical History: Reports: None Neurological Surgical History: Reports: None Musculoskeletal Surgical History: Reports: None Oncologic Surgical History: Reports: None Dermatological Surgical History: Reports: None Social & Family History - Family History Family Medical History: Noncontributory OBGYN: Reports: Other (See Below) Other OBGYN Family History: mother also has cysts Musculoskeletal: Reports: Fibromyalgia Other Musculoskeletal Family History: mother Neurological: Reports: Seizure Other Neurological Family History: mother - Tobacco Use Smoking Status *Q: Never Smoker Second Hand Smoke Exposure: No - Caffeine Use Caffeine Use: Reports: None - Alcohol Use Days Per Week of Alcohol Use: 1 Number of Drinks Per Day: 1 Total Drinks Per Week: 1 - Recreational Drug Use Recreational Drug Use: No ED ROS GENERAL - Review of Systems Review Of Systems: See Below Constitutional: Reports: Chills. Denies: Fever HEENT: Reports: No Symptoms Respiratory: Reports: No Symptoms Cardiovascular: Reports: No Symptoms Endocrine: Reports: No Symptoms GI/Abdominal: Reports: Abdominal Pain, Diarrhea, Nausea, Vomiting : Reports: No Symptoms Musculoskeletal: Reports: No Symptoms ED EXAM, GI/ABD - Physical Exam Exam: See Below Exam Limited By: No Limitations General Appearance: Alert, No Apparent Distress Ears: Normal External Exam Nose: Normal Inspection Head: Atraumatic, Normocephalic Neck: Normal Inspection Respiratory/Chest: No Respiratory Distress, Lungs Clear, Normal Breath Sounds Cardiovascular: Regular Rate, Rhythm, No Edema, No Murmur GI/Abdominal Exam: Soft, No Organomegaly, No Mass, Tender (Mild to moderate tenderness to the lower abdomen) Back Exam: Normal Inspection Extremities: Normal Inspection Course - Vital Signs Last Recorded V/S: Last Vital Signs Temp 97.1 F 07/23/17 08:48 Pulse 84 07/23/17 08:48 Resp 16 07/23/17 08:48 BP 124/62 07/23/17 08:48 Pulse Ox 98 07/23/17 08:48 - Orders/Labs/Meds Orders: Active Orders 24 hr Category Date Time Status Peripheral IV Care [RC] . DIRECTED Care 07/23/17 09:02 Active CULTURE URINE [RM] Stat Lab 07/23/17 10:29 Received UA W/MICROSCOPIC [URIN] Stat Lab 07/23/17 10:29 Ordered Sodium Chloride 0.9% [Saline Flush] Med 07/23/17 09:02 Active 10 ml FLUSH ASDIRECTED PRN ED Antiemetic Medication Reflex [OM.PC] Stat Oth 07/23/17 09:02 Ordered Peripheral IV Insertion Adult [OM.PC] Stat Oth 07/23/17 09:02 Ordered Medication Orders Sodium Chloride (Saline Flush) 10 ml FLUSH ASDIRECTED PRN PRN Reason: Keep Vein Open Last Admin: 07/23/17 09:18 Dose: 10 ml Labs: Laboratory Tests 07/23/17 07/23/17 07/23/17 Range/Units 09:15 09:15 09:15 WBC 9.18 (3.98-10.04) K/mm3 RBC 4.58 (3.98-5.22) M/mm3 Hgb 13.0 (11.2-15.7) gm/L Hct 40.2 (34.1-44.9) % MCV 87.8 (79.4-94.8) fl MCH 28.4 (25.6-32.2) pg MCHC 32.3 (32.2-35.5) g/dl RDW Std Deviation 41.1 (36.4-46.3) fL Plt Count 195 (182-369) K/mm3 MPV 11.1 (9.4-12.3) fl Neut % (Auto) 70.0 (34.0-71.1) % Lymph % (Auto) 22.5 (19.3-51.7) % [place] % (Auto) 6.1 (4.7-12.5) % Eos % (Auto) 1.0 (0.7-5.8) Baso % (Auto) 0.2 (0.1-1.2) % Neut # (Auto) 6.42 H (1.56-6.13) K/mm3 Lymph # (Auto) 2.07 (1.18-3.74) K/mm3 [place] # (Auto) 0.56 H (0.24-0.36) K/mm3 Eos # (Auto) 0.09 (0.04-0.36) K/mm3 Baso # (Auto) 0.02 (0.01-0.08) K/mm3 Sodium 143 (136-145) mEq/L Potassium 3.9 (3.5-5.1) mEq/L Chloride 105 (98-107) mEq/L Carbon Dioxide 28 (21-32) mEq/L Anion Gap 13.9 (5-15) BUN 16 (7-18) mg/dL Creatinine 0.8 (0.55-1.02) mg/dL Est Cr Clr Drug Dosing 108.44 mL/min Estimated GFR (MDRD) > 60 (>60) mL/min BUN/Creatinine Ratio 20.0 H (14-18) Glucose 92 (74-106) mg/dL Calcium 9.0 (8.5-10.1) mg/dL Total Bilirubin 0.3 (0.2-1.0) mg/dL AST 13 L (15-37) U/L ALT 17 (14-59) U/L Alkaline Phosphatase 94 (46-116) U/L Total Protein 7.2 (6.4-8.2) g/dl Albumin 4.3 (3.4-5.0) g/dl Globulin 2.9 gm/dL Albumin/Globulin Ratio 1.5 (1-2) Lipase 155 (73-393) U/L HCG, Qual Negative (NEGATIVE) Urine Color (Yellow) Urine Appearance (Clear) Urine pH (5.0-8.0) Ur Specific [place] (1.005-1.030) Urine Protein (Negative) Urine Glucose (UA) (Negative) Urine Ketones (Negative) Urine Occult Blood (Negative) Urine Nitrite (Negative) Urine Bilirubin (Negative) Urine Urobilinogen (0.2-1.0) Ur Leukocyte Esterase (Negative) Urine RBC (0-5) /hpf Urine WBC (0-5) /hpf Ur Epithelial Cells (0-5) /hpf Urine Bacteria (FEW) /hpf Urine Mucus (FEW) /hpf 07/23/17 Range/Units 10:29 WBC (3.98-10.04) K/mm3 RBC (3.98-5.22) M/mm3 Hgb (11.2-15.7) gm/L Hct (34.1-44.9) % MCV (79.4-94.8) fl MCH (25.6-32.2) pg MCHC (32.2-35.5) g/dl RDW Std Deviation (36.4-46.3) fL Plt Count (182-369) K/mm3 MPV (9.4-12.3) fl Neut % (Auto) (34.0-71.1) % Lymph % (Auto) (19.3-51.7) % [place] % (Auto) (4.7-12.5) % Eos % (Auto) (0.7-5.8) Baso % (Auto) (0.1-1.2) % Neut # (Auto) (1.56-6.13) K/mm3 Lymph # (Auto) (1.18-3.74) K/mm3 [place] # (Auto) (0.24-0.36) K/mm3 Eos # (Auto) (0.04-0.36) K/mm3 Baso # (Auto) (0.01-0.08) K/mm3 Sodium (136-145) mEq/L Potassium (3.5-5.1) mEq/L Chloride (98-107) mEq/L Carbon Dioxide (21-32) mEq/L Anion Gap (5-15) BUN (7-18) mg/dL Creatinine (0.55-1.02) mg/dL Est Cr Clr Drug Dosing mL/min Estimated GFR (MDRD) (>60) mL/min BUN/Creatinine Ratio (14-18) Glucose (74-106) mg/dL Calcium (8.5-10.1) mg/dL Total Bilirubin (0.2-1.0) mg/dL AST (15-37) U/L ALT (14-59) U/L Alkaline Phosphatase (46-116) U/L Total Protein (6.4-8.2) g/dl Albumin (3.4-5.0) g/dl Globulin gm/dL Albumin/Globulin Ratio (1-2) Lipase (73-393) U/L HCG, Qual (NEGATIVE) Urine Color Red H (Yellow) Urine Appearance Cloudy H (Clear) Urine pH 5.5 (5.0-8.0) Ur Specific [place] > or = 1.030 (1.005-1.030) Urine Protein 2+ H (Negative) Urine Glucose (UA) Negative (Negative) Urine Ketones Negative (Negative) Urine Occult Blood 3+ H (Negative) Urine Nitrite Positive H (Negative) Urine Bilirubin 1+ H (Negative) Urine Urobilinogen 0.2 (0.2-1.0) Ur Leukocyte Esterase Trace H (Negative) Urine RBC Too numerous to cnt H (0-5) /hpf Urine WBC 0-5 (0-5) /hpf Ur Epithelial Cells 0-5 (0-5) /hpf Urine Bacteria Few (FEW) /hpf Urine Mucus Not seen (FEW) /hpf Meds: Medications Generic Name Dose Route Start Last Admin Trade Name Freq PRN Reason Stop Dose Admin Sodium Chloride 10 ml 07/23/17 09:02 07/23/17 09:18 Saline Flush FLUSH 10 ml ASDIRECTED PRN Administration Keep Vein Open Discontinued Medications Generic Name Dose Route Start Last Admin Trade Name Francisco PRN Reason Stop Dose Admin Diphenhydramine HCl 25 mg 07/23/17 11:28 07/23/17 12:16 Benadryl IVPUSH 07/23/17 11:29 25 mg ONETIME ONE Administration Fentanyl 100 mcg 07/23/17 11:15 07/23/17 11:29 Sublimaze IVPUSH 07/23/17 11:16 100 mcg ONETIME ONE Administration Hydromorphone HCl 0.5 mg 07/23/17 09:03 07/23/17 09:17 Dilaudid IVPUSH 07/23/17 09:04 0.5 mg ONETIME ONE Administration Hydromorphone HCl 0.5 mg 07/23/17 09:39 07/23/17 09:55 Dilaudid IVPUSH 07/23/17 09:40 0.5 mg ONETIME ONE Administration Sodium Chloride 1,000 mls @ 1,000 mls/hr 07/23/17 09:02 07/23/17 09:16 Normal Saline IV 07/23/17 10:01 1,000 mls/hr .BOLUS STA Administration Ceftriaxone Sodium 2 gm/ 100 mls @ 100 mls/hr 07/23/17 11:16 07/23/17 11:29 Sodium Chloride IV 07/23/17 12:15 100 mls/hr ONETIME ONE Administration Ondansetron HCl 4 mg 07/23/17 09:02 07/23/17 09:17 Zofran IVPUSH 07/23/17 09:03 4 mg ONETIME ONE Administration Prochlorperazine Edisylate 5 mg 07/23/17 11:28 07/23/17 12:12 Compazine IVPUSH 07/23/17 11:29 5 mg ONETIME ONE Administration - Re-Assessments/Exams Free Text/Narrative Re-Assessment/Exam: 07/23/17 09:38 I ordered an IV NS 1L bolus, zofran 4mg IV, dilaudid 0.5mg IV, labs and UA. She is still having pain so I ordered more dilaudid 0.5mg IV. 07/23/17 11:18 Her CBC and CMP look good. Her lipase looks good. Her HCG is negative. Her UA shows a UTI. I will culture it and I will give her a dose of rocephin 2 grams IV here. I have also ordered an US. She has a history of cysts and endometriosis. I also ordered some fentanyl. 07/23/17 12:53 Her US looks good. She did have some more nausea so I ordered compazine 5mg IV and benadryl 25mg IV. The US shows findings which are felt to be incidental. She feels better. I will discharge her home and have her follow up with Dr Patel. Departure - Departure Time of Disposition: 12:55 Disposition: Home, Self-Care 01 Condition: Good Clinical Impression: Pelvic pain Abdominal pain Qualifiers: Abdominal location: unspecified location Qualified Code(s): R10.9 - Unspecified abdominal pain UTI (urinary tract infection) Qualifiers: Urinary tract infection type: site unspecified Hematuria presence: without hematuria Qualified Code(s): N39.0 - Urinary tract infection, site not specified - Discharge Information Prescriptions: Hydrocodone/Acetaminophen [Hydrocodon-Acetaminophen 5-325] 1 - 2 each PO Q6HR PRN #20 tablet PRN Reason: Pain Nitrofurantoin Monohyd/M-Cryst [Macrobid 100 mg Capsule] 100 mg PO BID #10 capsule Ondansetron [Zofran ODT] 4 mg PO Q6H PRN #20 tab.dis PRN Reason: Nausea\vomiting Referrals: Kate Isaac MD [Primary Care Provider] - 1 Week Forms: ED Department Discharge Additional Instructions: Take the medication as prescribed. Drink plenty of fluids. Follow up with your doctor. Please return if you are worse. - My Orders Last 24 Hours: My Active Orders 07/23/17 09:02 Peripheral IV Care [RC] . DIRECTED Sodium Chloride 0.9% [Saline Flush] 10 ml FLUSH ASDIRECTED PRN ED Antiemetic Medication Reflex [OM.PC] Stat Peripheral IV Insertion Adult [OM.PC] Stat 07/23/17 10:29 CULTURE URINE [RM] Stat UA W/MICROSCOPIC [URIN] Stat - Assessment/Plan Last 24 Hours: My Active Orders 07/23/17 09:02 Peripheral IV Care [RC] . DIRECTED Sodium Chloride 0.9% [Saline Flush] 10 ml FLUSH ASDIRECTED PRN ED Antiemetic Medication Reflex [OM.PC] Stat Peripheral IV Insertion Adult [OM.PC] Stat 07/23/17 10:29 CULTURE URINE [RM] Stat UA W/MICROSCOPIC [URIN] Stat
[2017-07-23] MEDS ORDERED: fentaNYL 100 MCG/2 ML SDV IVPUSH ONE (11:15)
[2017-07-23] MEDS ORDERED: cefTRIAXone 2 GM in Sodium Chloride 0.9% 100 ML IV ONE (11:16)
[2017-07-23] MEDS ORDERED: Prochlorperazine 10 MG/2 ML SDV IVPUSH ONE (11:28)
[2017-07-23] MEDS ORDERED: diphenhydrAMINE 50 MG/ML SDV IVPUSH ONE (11:28)
--- NOTE | 2017-07-23 12:34 | US ---
Pelvic ultrasound: Multiple real-time images were obtained transvaginally. Comparison: Prior pelvic ultrasound exam of 01/11/17. Uterus is anteverted. No myometrial abnormality is seen. Endometrial thickness is 1.4 cm. Small amount of free fluid is seen within the cul-de-sac which is believed to be physiologic. 2 small thick walled cysts are seen within the left ovary with largest measuring 1.5 cm which are likely due to small collapsing hemorrhagic cysts and are incidental. No larger cyst or solid abnormality is seen within either ovary. Measurements: Uterus: Length 7.5 cm, AP height 3.7 cm, transverse width 5.0 cm Right ovary: 1.5 x 2.5 x 1.9 cm Left ovary: 4.2 x 2.8 x 2.7 cm Impression: 1. Findings which are felt to be incidental as noted above. Nothing acute is seen. Diagnostic code #2
== END 2017-07-23 13:25 | disposition home or self-care (01) ==
LOC: JD.ED 08:43
DX: N39.0 Urinary tract infection, site not specified (principal); Z88.8 Allergy status to other drugs, medicaments and biological substances; Z88.1 Allergy status to other antibiotic agents; Z79.899 Other long term (current) drug therapy
CPT/HCPCS: 36415; 76830; 80053; 81001; 83690; 84703; 85025; 87086; 87088; 87186; 96361; 96365; 96375; 96376; 99285; J0696; J0780; J1170; J1200; J2405; J3010; J7030; J7040; J7050; 99284